=== PATIENT | female | born 2000 | race Caucasian/White ===

== ENCOUNTER 2023-10-11 10:25 | Outpatient (AMB) | payer OTHER, SELFPAY ==
--- NOTE | 2023-10-11 10:27 | MHC.PC.OV ---
Vital Signs 10/11/23 10:31 Height 5 ft 3 in Weight 102 lb BMI 18.1 BP 118/70 Blood Pressure Location Lt brachial Position Sitting Pulse 78 Pulse Source Pulse Oximeter Pulse Oximetry (%) 97 Oxygen Delivery Method Room Air Intake Visit Reasons: New patient-Type 1 diabetes Intake Note: Patient is a new patient here to establish care for T1DM, Anxiety, Insomia, ADHD, Seizures, Aspergers syndrome. Transferring care from Dr Ayala. Medical records have been requested and have not received. Asphalt Blender Required: No Communication Electronic Technician: Present Accompanied by: Father Allergies Influenza Virus Vaccines Allergy (Intermediate, Verified 10/11/23 16:32) Chills Medication List - Last Reconciled 10/11/23 by Cory Das MD blood sugar diagnostic (FreeStyle Lite Strips) As directed clonidine HCl 0.3 mg PO DAILY dextroamphetamine-amphetamine 25 mg ER 1 cap PO QAM dextroamphetamine-amphetamine 25 mg ER (Adderall XR) 25 mg PO DAILY fluoxetine 30 mg PO glucagon 3 mg/actuation (Baqsimi) mg intranasal insulin glargine (Lantus U-100 Insulin) 10 units subcut QPM insulin lispro (Humalog U-100 Insulin) subcut ketone blood test test blood sugar 4 times a day levetiracetam 750 mg PO BID Tobacco use date assessed: 10/11/23 Dental Screening Dental Screen Date: 10/11/23 Did you have a dental visit in the last 12 months?: Yes Did you have a dental problem in the last 6 months where you did not have access to dental care?: No Was dental information given to patient?: Patient has dentist HPI New patient-Type 1 diabetes HPI Details 23-year-old female presents to the office to establish her care here. She is transferring out of pediatrics and is requesting to see an adult provider. Patient gives history of Asperger's, type 1 diabetes mellitus, seizure disorder and depression. She also has ADHD. Patient takes fluoxetine, clonidine, Adderall ER and Lamictal for these conditions. She needs a refill on the Adderall. Patient was diagnosed with autism at age 10. She has been taking medications for depression since age 8. She was diagnosed with type 1 diabetes at age 14. Currently she is transitioning to see an adult tin plater. Patient finished [facility] [employer] [facility] [facility] and did not pursue a college career. According to the patient she has no learning or reading disabilities. 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 She lives at home. She has a younger sibling who is pursuing a career in criminal Psychology. Patient gives history of seizure disorder and the last seizure was in January of 2021. She takes Lamictal twice a day. Occasional alcohol use. [facility] Medical History (Updated 10/11/23 @ 16:41 by Cory Das MD) Attention deficit hyperactivity disorder Endogenous depression Type 1 diabetes mellitus Seizure disorder Asperger's syndrome Surgical History No pertinent past surgical history Family History Other Mental health disorder Social History Housing: House (with parent) Alcohol intake: never Patient Tobacco Use Status: Never used Tobacco e-Cigarette/Vaping Use: Never Used Second Hand Smoke Exposure: No service: No Current occupational status: unemployed and disabled Cognitive needs: No Hearing needs: No Vision needs: Yes (glasses) Questionnaire PHQ-9 Over the last 2 weeks, how often have you been bothered by any of the following problems? 1. Little interest or pleasure in doing things: not at all 2. Feeling down, depressed, or hopeless: not at all 3. Trouble falling or staying asleep, or sleeping too much: not at all 4. Feeling tired or having little energy: not at all 5. Poor appetite or overeating: not at all 6. Feeling bad about yourself - or that you are a failure or have let yourself or your family down: not at all 7. Trouble concentrating on things, such as reading the newspaper or watching television: not at all 8. Moving or speaking so slowly that other people could have noticed. Or the opposite - being so fidgety or restless that you have been moving around a lot more than usual: not at all 9. Thoughts that you would be better off or of hurting yourself in some way: not at all Total score: 0 Depression Screening Interpretation: Negative Depression Screening Done: Yes Source: Developed by Dianne Peralta.W. Nba, Gordy Roach and colleagues, with an educational rolando from [employer] Thrive Questionnaire Date Thrive assessed: 10/11/23 I am a: Patient What is your living situation today?: I have a steady place to live Within the past 12 months, did the food you bought not last and you didn't have the money to get more?: Never true Within the past 12 months, did you worry whether your food would run out before you got money to buy more?: Never true Do you have trouble paying for medicines?: No Do you have trouble getting transportation to medical appointments?: No Do you have trouble paying your heating and electricity bill?: No Do you have trouble taking care of your child, family member or friend?: No Do you have trouble with day-to-day activities such as bathing, preparing meals, shopping, managing finances, etc.?: No Are you currently unemployed and looking for a job?: No Are you interested in more education?: No Currently or been in a relationship where the following occur: no concerns reported AUDIT C Alcohol Use Questionnaire (AUDIT-C) 1. How often do you have a drink containing alcohol?: Never Total Score: 0 LUANA-7 AMB Questionnaire LUANA-7 Date LUANA - 7 assessed: 10/11/23 Feeling nervous, anxious, or on edge: 1 = Several days (currently on medication) Not being able to stop or control worryin = Not at all Worrying too much about different things: 0 = Not at all Trouble relaxin = Not at all Being so restless that it is hard to sit still: 0 = Not at all Becoming easily annoyed or irritable: 0 = Not at all Feeling afraid as if something awful might happen: 0 = Not at all Total LUANA-7 score (0-4 normal; 5-9 mild; 10-14 moderate; 15-21 severe): 1 Source: Developed by Drs. Riley Friedman, Dianne Arango, Gordy Roach and colleagues, with an educational rolando from [employer] Physical exam (Primary Care) Vital Signs: Last Vital Signs Pulse 78 10/11/23 10:31 BP 118/70 10/11/23 10:31 Pulse Ox 97 10/11/23 10:31 Oxygen Delivery Method Room Air 10/11/23 10:31 BMI result Body Mass Index 18.1 Tobacco/Smoking Status: Tobacco use Status Tobacco use date assessed 10/11/23 10/11/23 10:48 Patient Tobacco Use Status Never used Tobacco 10/11/23 10:48 e-Cigarette/Vaping Use Never Used 10/11/23 10:48 PHQ-9: PHQ-9 Score PHQ-9: Total score 0 10/11/23 10:48 Depression Screening Interpretation: Negative Thrive Assessment: Date of Thrive Assessment Date Thrive assessed 10/11/23 10/11/23 10:48 Currently or been in a relationship where the following occur: no concerns reported Const General: cooperative and healthy appearing Nutritional Appearance: well nourished Orientation/consciousness: patient oriented x3 Limitations: no limitations HENMT Head: Yes normal to inspection Eyes General: appearance normal, both eyes and all related structures Neck Neck: Yes normal visual inspection Chest Chest palpation & inspection: normal palpation of entire chest wall Resp Effort & Inspection: normal respiratory effort Neuro General: patient oriented x3 Assessment and Plan Assessment & Plan (1) Endogenous depression: Code(s): F33.2 - Major depressive disorder, recurrent severe without psychotic features (2) Type 1 diabetes mellitus: Code(s): E10.9 - Type 1 diabetes mellitus without complications Plan: Patient was informed that I would not be able to take care of this condition. She reported that she already is looking for an tin plater. She has the prescriptions and would not be requiring me to refill them. (3) Seizure disorder: Code(s): G40.909 - Epilepsy, unspecified, not intractable, without status epilepticus Plan: Patient reports that she has had no seizures on Lamictal. (4) Asperger's syndrome: Code(s): F84.5 - Asperger's syndrome Plan: Condition is stable. (5) Attention deficit hyperactivity disorder: Code(s): F90.9 - Attention-deficit hyperactivity disorder, unspecified type Plan: Adderall XR was reordered. Records from the garment form assembler is awaited. Medications: New dextroamphetamine-amphetamine 25 mg ER (Adderall XR) Partial Fill upon patient request. 25 mg PO DAILY 30 caps 0RF Coding Level of Care Code New Pt Level 5 (62409) Diagnoses 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 Type 1 diabetes mellitus E10.9 Seizure disorder G40.909 Asperger's syndrome F84.5 Attention deficit hyperactivity disorder F90.9
[2023-10-11 10:31] VITALS: BP 118/70; PULSE 78; O2SAT 97; BMI 18.1
== END 2023-10-11 11:58 | disposition home or self-care (01) ==
PROVIDERS: PCP Internal Medicine; Visit Provider Internal Medicine
DX: E10.9 Type 1 diabetes mellitus without complications (principal); G40.909 Epilepsy, unspecified, not intractable, without status epilepticus; F33.2 Major depressive disorder, recurrent severe without psychotic features; F84.5 Asperger's syndrome; F90.9 Attention-deficit hyperactivity disorder, unspecified type
CPT/HCPCS: 99204

== ENCOUNTER 2023-12-13 15:13 | Outpatient (AMB) | payer OTHER, SELFPAY ==
[2023-12-13 15:18] VITALS: BP 108/76; PULSE 105; RESP 13; O2SAT 100; BMI 18.2
--- NOTE | 2023-12-13 15:18 | MHC.PC.OV ---
Vital Signs 12/13/23 15:18 Height 5 ft 3 in Weight 102 lb 8 oz BMI 18.2 BP 108/76 Blood Pressure Location Rt brachial Position Sitting Respiration 13 Pulse 105 H Pulse Source Pulse Oximeter Pulse Oximetry (%) 100 Oxygen Delivery Method Room Air Intake Visit Reasons: RIGOBERTO Intake Note: Patient would like refill on Fluoxetine. Manager Aviation Required: No Accompanied by: Father Allergies Influenza Virus Vaccines Allergy (Intermediate, Verified 12/13/23 15:37) Chills Medication List - Last Reconciled 12/13/23 by LANG OsegueraP- blood sugar diagnostic (FreeStyle Lite Strips) As directed clonidine HCl 0.3 mg PO DAILY dextroamphetamine-amphetamine 25 mg ER (Adderall XR) 25 mg PO DAILY fluoxetine 30 mg (3 x 10 mg) PO DAILY glucagon 3 mg/actuation (Baqsimi) mg intranasal insulin glargine (Lantus U-100 Insulin) 10 units subcut QPM insulin lispro (Humalog U-100 Insulin) subcut ketone blood test test blood sugar 4 times a day levetiracetam 750 mg PO BID Tobacco use date assessed: 10/11/23 Dental Screening Dental Screen Date: 12/13/23 Did you have a dental visit in the last 12 months?: No Did you have a dental problem in the last 6 months where you did not have access to dental care?: No Was dental information given to patient?: Patient has dentist HPI HPI Comments History of Present Illness Details 23-year-old female with ADHD, MDD, type 1 diabetes, Asperger syndrome, seizure disorder , generalized anxiety disorder, insomnia, seasonal allergies, mild intermittent asthma [facility] [address] [place] Op[facility] DME unsure who at this time Neuro unsure of who at this time Counselor - active in the past Health Maintenance: Hga1c done today 7.7% DME eye - reports UTD, need records. Here today with Dad, Jonnie, to [facility] care Mood - stable on current meds. Does not feel needs counselor at this time. Sz - managed by Neuro. 2 sz in her life time. Last time Wednesday 2 years ago. Maintained on Keppra. DM - managed by endo. Insulin pump dependent (Omnipod). Hga1c done today 7.7% Not using CGM as felt there was a lot of false readings in the past. Surgery: None Hospital: None Family hx: Dad alive and well PGM alive, CHF PGF small cell lung ca age 77 Mom: alive and well MGM: Iron def, MDD, LUANA, DM 2 MGF: estranged Sibling: sister age 19, + estranged step sister age 28 (Bharat) Healthy [facility] Medical History Attention deficit hyperactivity disorder Endogenous depression Type 1 diabetes mellitus Seizure disorder Asperger's syndrome Surgical History No pertinent past surgical history Family History Other Mental health disorder Social History Housing: House (with parent) Alcohol intake: never Patient Tobacco Use Status: Never used Tobacco e-Cigarette/Vaping Use: Never Used Second Hand Smoke Exposure: No service: No Current occupational status: unemployed and disabled Cognitive needs: No Hearing needs: No Vision needs: Yes (glasses) Questionnaire PHQ-9 Over the last 2 weeks, how often have you been bothered by any of the following problems? 1. Little interest or pleasure in doing things: not at all 2. Feeling down, depressed, or hopeless: not at all 3. Trouble falling or staying asleep, or sleeping too much: not at all 4. Feeling tired or having little energy: not at all 5. Poor appetite or overeating: not at all 6. Feeling bad about yourself - or that you are a failure or have let yourself or your family down: not at all 7. Trouble concentrating on things, such as reading the newspaper or watching television: not at all 8. Moving or speaking so slowly that other people could have noticed. Or the opposite - being so fidgety or restless that you have been moving around a lot more than usual: several days 9. Thoughts that you would be better off or of hurting yourself in some way: not at all Total score: 1 Depression Screening Interpretation: Negative Depression Screening Done: Yes 79169 - PHQ-9 Billing: Yes Source: Developed by Drs. Riley L. Dianne Friedman Kurt Kroenke and colleagues, with an educational rolando from [employer]. Thrive Questionnaire Date Thrive assessed: 10/11/23 AUDIT C Alcohol Use Questionnaire (AUDIT-C) 1. How often do you have a drink containing alcohol?: Never 3. How often do you have six or more drinks on one occasion?: Never Total Score: 0 LUANA-7 AMB Questionnaire LUANA-7 Date LUANA - 7 assessed: 12/13/23 Feeling nervous, anxious, or on edge: 1 = Several days Not being able to stop or control worryin = Several days Worrying too much about different things: 1 = Several days Trouble relaxin = Several days Being so restless that it is hard to sit still: 1 = Several days Becoming easily annoyed or irritable: 0 = Not at all Feeling afraid as if something awful might happen: 0 = Not at all Total LUANA-7 score (0-4 normal; 5-9 mild; 10-14 moderate; 15-21 severe): 5 Source: Developed by Drs. Riley Friedman, Gordy Araya and colleagues, with an educational rolando from [employer]. LUANA-7 Assessment Billing LUANA-7 Assessment Tool: LUANA-7 Assessment 26793 Review of Systems Const All systems reviewed & are unremarkable except as noted in HPI and below Physical exam (Primary Care) Vital Signs: Last Vital Signs Pulse 105 H 12/13/23 15:18 Resp 13 12/13/23 15:18 BP 108/76 12/13/23 15:18 Pulse Ox 101 H 12/13/23 15:18 Oxygen Delivery Method Room Air 12/13/23 15:18 BMI result Body Mass Index 18.2 Tobacco/Smoking Status: Tobacco use Status Tobacco use date assessed 10/11/23 12/13/23 15:21 Patient Tobacco Use Status Never used Tobacco 12/13/23 15:21 e-Cigarette/Vaping Use Never Used 12/13/23 15:21 PHQ-9: PHQ-9 Score PHQ-9: Total score 1 12/13/23 15:27 Depression Screening Interpretation: Negative Thrive Assessment: Date of Thrive Assessment Date Thrive assessed 10/11/23 12/13/23 15:21 Const Other: awake alert NAD accompanied by Dad. Interview performed w and w/o Dad PERRLA Tachycardic, regular rythym LS CTAB Mood and affect appropriate, as expected. Results AMB Hemoglobin A1c AMB Hemoglobin A1c 7.7 % Last Edit by Millie Yip MA on 12/13/23 15:40 Assessment and Plan Assessment & Plan (1) Attention deficit hyperactivity disorder: Comment: on Adderall XR 25 mg daily and clonidine 0.3 mg daily. Continue Code(s): F90.9 - Attention-deficit hyperactivity disorder, unspecified type Qualifiers: Attention deficit-hyperactivity disorder type: combined inattentive-hyperactive Qualified Code(s): F90.2 - Attention-deficit hyperactivity disorder, combined type (2) Endogenous depression: Comment: On fluoxetine 30 mg daily. Refill sent today. Code(s): F33.2 - Major depressive disorder, recurrent severe without psychotic features (3) Type 1 diabetes mellitus: Comment: Managed by endocrinology. On Omnipod insulin pump A1c 7.7% today Reports up-to-date on diabetic eye exam. We will need these records. Code(s): E10.9 - Type 1 diabetes mellitus without complications (4) Seizure disorder: Comment: Managed by Neurology. On Keppra. Two seizures in her lifetime. Last seizure January 2022 Code(s): G40.909 - Epilepsy, unspecified, not intractable, without status epilepticus (5) Asperger's syndrome: Code(s): F84.5 - Asperger's syndrome Plan This note is constructed using voice recognition software. While every effort has been made to ensure accuracy in whirley operator, still errors may have been included Sometimes, these errors may affect the content or meaning of the given sentence . Total time spent caring for the patient today was 45 minutes. This includes time spent before the visit reviewing the chart, time spent during the visit, and time spent after the visit on documentation Orders: Orders AMB Hemoglobin A1c Today E10.9 - Type 1 diabetes mellitus without complications Medications: Refilled fluoxetine 30 mg (3 x 10 mg) PO DAILY 90 tabs 6RF Patient Instructions: Talk with Mom about a Gynecology referral. Current guidelines recommend cervical screening starting at age 21, regardless of sexual activity. Please provide names for specialists: Eye doctor, endocrinology and neurology so that i can get records and send my records to them as needed Return to office in May for a complete physical exam. Coding Level of Care Code Est Pt Level 5 (97547) Diagnoses Attention deficit hyperactivity disorder (ADHD), combined type F90.2 Attention deficit-hyperactivity disorder type: combined inattentive-hyperactive 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 Type 1 diabetes mellitus E10.9 Seizure disorder G40.909 Asperger's syndrome F84.5 Additional Codes LUANA-7 Assessment Billing - LUANA-7 Assessment Tool: LUANA-7 Assessment 25738 ([id number])
== END 2023-12-13 16:16 | disposition home or self-care (01) ==
PROVIDERS: PCP Internal Medicine; Visit Provider Nurse Practitioner Family
DX: E10.9 Type 1 diabetes mellitus without complications (principal); F33.2 Major depressive disorder, recurrent severe without psychotic features; G40.909 Epilepsy, unspecified, not intractable, without status epilepticus; F90.2 Attention-deficit hyperactivity disorder, combined type; F84.5 Asperger's syndrome
CPT/HCPCS: 83036; 99215

== ENCOUNTER 2024-02-04 15:28 | Outpatient (AMB) | payer OTHER, SELFPAY ==
--- NOTE | 2024-02-04 15:42 | A.OFFPC_ITS ---
Vital Signs 02/04/24 15:43 Height 5 ft 3 in Weight 103 lb 4 oz BMI 18.3 BP 108/62 Blood Pressure Location Lt brachial Position Sitting Pulse 110 H Pulse Source Pulse Oximeter Pulse Oximetry (%) 98 Oxygen Delivery Method Room Air Intake Visit Reasons: med visit Allergies Influenza Virus Vaccines Allergy (Intermediate, Verified 02/04/24 15:45) Chills Medication List - Last Reconciled 02/04/24 by Catherine Reese, UPHOLSTERY ESTIMATOR- blood sugar diagnostic (FreeStyle Lite Strips) As directed clonidine HCl 0.3 mg PO DAILY dextroamphetamine-amphetamine 25 mg ER (Adderall XR) 25 mg PO DAILY fluoxetine 30 mg (3 x 10 mg) PO DAILY glucagon 3 mg/actuation (Baqsimi) mg intranasal insulin glargine (Lantus U-100 Insulin) 10 units subcut QPM insulin lispro (Humalog U-100 Insulin) subcut ketone blood test test blood sugar 4 times a day levetiracetam 750 mg PO BID Tobacco use date assessed: 10/11/23 Dental Screening Dental Screen Date: 12/13/23 HPI HPI Comments History of Present Illness Details 23-year-old female with ADHD, MDD, type 1 diabetes, Asperger syndrome, seizure disorder , generalized anxiety disorder, insomnia, seasonal allergies, mild intermittent asthma [facility] [address] Op[facility] DME unsure who at this time Neuro unsure of who at this time Counselor - active in the past Here today for ADHD f/u Tolerant and compliant w/ Adderral. Wt is stable. Eating more to try to gain weight Helping neighbors spring clean looking forward to sister coming home for the summer Sleeping well. Mood is stable. Was not able to get my the info on names of her other providers Did talk to Mom about SORTER/ASSAY TECH for PAP. Mom is unsure. Pt wants to but is kind of unsure too. Will cont to think about this. [facility] Medical History Attention deficit hyperactivity disorder Endogenous depression Type 1 diabetes mellitus Seizure disorder Asperger's syndrome Surgical History No pertinent past surgical history Family History Other Mental health disorder Social History (Reviewed 12/13/23 @ 15:25 by Millie Yip [facility] Housing: House (with parent) Alcohol intake: never Patient Tobacco Use Status: Never used Tobacco e-Cigarette/Vaping Use: Never Used Second Hand Smoke Exposure: No service: No Current occupational status: unemployed and disabled Cognitive needs: No Hearing needs: No Vision needs: Yes (glasses) Questionnaire Thrive Questionnaire Date Thrive assessed: 10/11/23 LUANA-7 AMB Questionnaire LUANA-7 Date LUANA - 7 assessed: 12/13/23 Source: Developed by Drs. Riley Friedman, Dianne Arango, Gordy Roach and colleagues, with an educational rolando from [employer]. Review of Systems Const All systems reviewed & are unremarkable except as noted in HPI and below Physical exam (Primary Care) Tobacco/Smoking Status: Tobacco use Status Tobacco use date assessed 10/11/23 12/13/23 15:21 Patient Tobacco Use Status Never used Tobacco 12/13/23 15:21 e-Cigarette/Vaping Use Never Used 12/13/23 15:21 Thrive Assessment: Date of Thrive Assessment Date Thrive assessed 10/11/23 12/13/23 15:21 Const Other: awake alert NAD Tachycardic, regular rythym, 2/6 holosystolic murmur LS CTAB Mood and affect appropriate, as expected. Assessment and Plan Assessment & Plan (1) Attention deficit hyperactivity disorder: Comment: on Adderall XR 25 mg daily and clonidine 0.3 mg daily. Continue Wt stable. HR elevated but within her normal range Refill sent Monthly visits set up for refills and checks. Code(s): F90.9 - Attention-deficit hyperactivity disorder, unspecified type Qualifiers: Attention deficit-hyperactivity disorder type: combined inattentive- hyperactive Qualified Code(s): F90.2 - Attention-deficit hyperactivity disorder, combined type Medications: Refilled dextroamphetamine-amphetamine 25 mg ER (Adderall XR) Partial Fill upon patient request. 25 mg PO DAILY 30 caps 0RF Patient Instructions: No changes today Refill sent on Adderall Continue to discuss Pap with Mom & let me know when you're ready for referral RTO in 1 month for med refill and check in, sooner if something changes. Coding Level of Care Code Est Pt Level 3 (41629) Diagnoses Attention deficit hyperactivity disorder (ADHD), combined type F90.2 Attention deficit-hyperactivity disorder type: combined inattentive- hyperactive
[2024-02-04 15:43] VITALS: BP 108/62; PULSE 110; O2SAT 98; BMI 18.3
== END 2024-02-04 15:56 | disposition home or self-care (01) ==
PROVIDERS: PCP Nurse Practitioner Family; Visit Provider Nurse Practitioner Family
DX: F90.2 Attention-deficit hyperactivity disorder, combined type (principal)
CPT/HCPCS: 99213

== ENCOUNTER 2024-03-17 15:41 | Outpatient (AMB) | payer OTHER, SELFPAY ==
--- NOTE | 2024-03-17 15:48 | A.OFFPC_ITS ---
Vital Signs 03/17/24 15:52 Height 5 ft 3 in Weight 107 lb 4 oz BMI 19.0 BP 100/66 Blood Pressure Location Lt brachial Position Sitting Respiration 12 Pulse 71 Pulse Source Pulse Oximeter Pulse Oximetry (%) 97 Oxygen Delivery Method Room Air Intake Visit Reasons: med visit Intake Note: medication F/U Is last menstrual period known: No Allergies Influenza Virus Vaccines Allergy (Intermediate, Verified 03/17/24 16:11) Chills Medication List - Last [facility]17[facility] blood sugar diagnostic (FreeStyle Lite Strips) As directed clonidine HCl 0.3 mg PO DAILY dextroamphetamine-amphetamine 25 mg ER (Adderall XR) 25 mg PO DAILY fluoxetine 30 mg (3 x 10 mg) PO DAILY glucagon 3 mg/actuation (Baqsimi) mg intranasal insulin glargine (Lantus U-100 Insulin) 10 units subcut QPM insulin lispro (Humalog U-100 Insulin) subcut ketone blood test test blood sugar 4 times a day levetiracetam 750 mg PO BID Tobacco use date assessed: 03/17/24 Dental Screening Dental Screen Date: 03/17/24 Did you have a dental visit in the last 12 months?: No Did you have a dental problem in the last 6 months where you did not have access to dental care?: No Was dental information given to patient?: Patient has dentist HPI HPI Comments History of Present Illness Details 23-year-old female with ADHD, MDD, type 1 diabetes, Asperger syndrome, seizure disorder , generalized anxiety disorder, insomnia, seasonal allergies, mild intermittent asthma [facility] [place] [facility] unsure who at this time Neuro unsure of who at this time Counselor - 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 Pap - never had one. Here today for ADHD f/u Tolerant and compliant w/ Adderral. 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 Sleeping well. Mood is stable. Plan: Cont Adderral at same dose. Refill sent on clonidine and prozac RTO in 1 month for med check, sooner as needed [facility] Medical History Attention deficit hyperactivity disorder Endogenous depression Type 1 diabetes mellitus Seizure disorder Asperger's syndrome Surgical History No pertinent past surgical history Family History Other Mental health disorder Social History Housing: House (with parent) Alcohol intake: never Patient Tobacco Use Status: Never used Tobacco e-Cigarette/Vaping Use: Never Used Second Hand Smoke Exposure: No service: No Current occupational status: unemployed and disabled Cognitive needs: No Hearing needs: No Vision needs: Yes (glasses) Questionnaire Thrive Questionnaire Date Thrive assessed: 10/11/23 AUDIT C Alcohol Use Questionnaire (AUDIT-C) 1. How often do you have a drink containing alcohol?: Never 3. How often do you have six or more drinks on one occasion?: Never Total Score: 0 LUANA-7 AMB Questionnaire LUANA-7 Date LUANA - 7 assessed: 12/13/23 Source: Developed by Drs. Riley Friedman, Dianne Arango, Gordy Roach and colleagues, with an educational rolando from [employer]. Review of Systems Const All systems reviewed & are unremarkable except as noted in HPI and below Physical exam (Primary Care) Vital Signs: Last Vital Signs Pulse 71 03/17/24 15:52 Resp 12 03/17/24 15:52 BP 100/66 03/17/24 15:52 Pulse Ox 97 03/17/24 15:52 Oxygen Delivery Method Room Air 03/17/24 15:52 BMI result Body Mass Index 19.0 Tobacco/Smoking Status: Tobacco use Status Tobacco use date assessed 03/17/24 03/17/24 15:56 Patient Tobacco Use Status Never used Tobacco 03/17/24 15:56 e-Cigarette/Vaping Use Never Used 03/17/24 15:56 Thrive Assessment: Date of Thrive Assessment Date Thrive assessed 10/11/23 03/17/24 15:56 Const Other: awake alert NAD Tachycardic, regular rythym, 2/6 holosystolic murmur LS CTAB Mood and affect appropriate, as expected. Assessment and Plan Assessment & Plan (1) Attention deficit hyperactivity disorder: Comment: on Adderall XR 25 mg daily and clonidine 0.3 mg daily. Continue Wt increased Monthly visits set up for refills and checks. Code(s): F90.9 - Attention-deficit hyperactivity disorder, unspecified type Qualifiers: Attention deficit-hyperactivity disorder type: combined inattentive- hyperactive Qualified Code(s): F90.2 - Attention-deficit hyperactivity disorder, combined type (2) Endogenous depression: Comment: On fluoxetine 30 mg daily. Refill sent today. Code(s): F33.2 - Major depressive disorder, recurrent severe without psychotic features Medications: Refilled clonidine HCl 0.3 mg PO DAILY 90 tabs 0RF fluoxetine 30 mg (3 x 10 mg) PO DAILY 90 tabs 3RF Patient Instructions: Plan: Cont Adderral at same dose. Refill sent on clonidine and prozac RTO in 1 month for med check, sooner as needed Coding Level of Care Code Est Pt Level 3 (70276) Diagnoses Attention deficit hyperactivity disorder (ADHD), combined type F90.2 Attention deficit-hyperactivity disorder type: combined inattentive- hyperactive 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
[2024-03-17 15:52] VITALS: BP 100/66; PULSE 71; RESP 12; O2SAT 97; BMI 19.0
== END 2024-03-17 16:39 | disposition home or self-care (01) ==
PROVIDERS: PCP Nurse Practitioner Family; Visit Provider Nurse Practitioner Family
DX: F90.2 Attention-deficit hyperactivity disorder, combined type (principal); F33.2 Major depressive disorder, recurrent severe without psychotic features
CPT/HCPCS: 99213

== ENCOUNTER 2024-04-14 15:26 | Outpatient (AMB) | payer OTHER, SELFPAY ==
--- NOTE | 2024-04-14 15:34 | A.OFFPC_ITS ---
Vital Signs 04/14/24 15:35 Height 5 ft 3 in Weight 103 lb 4 oz BMI 18.3 BP 102/74 Blood Pressure Location Rt brachial Position Sitting Pulse 93 Pulse Source Pulse Oximeter Pulse Oximetry (%) 98 Oxygen Delivery Method Room Air Intake Visit Reasons: med visit Intake Note: Follow up Is last menstrual period known: Yes Last menstrual period: 03/10/24 Allergies Influenza Virus Vaccines Allergy (Intermediate, Verified 04/14/24 15:34) Chills Medication List - Last Reconciled 04/14/24 by LANG OsegueraP- blood sugar diagnostic (FreeStyle Lite Strips) As directed clonidine HCl 0.3 mg PO DAILY dextroamphetamine-amphetamine 25 mg ER (Adderall XR) 25 mg PO DAILY fluoxetine 30 mg (3 x 10 mg) PO DAILY glucagon 3 mg/actuation (Baqsimi) mg intranasal insulin glargine (Lantus U-100 Insulin) 10 units subcut QPM insulin lispro (Humalog U-100 Insulin) subcut ketone blood test test blood sugar 4 times a day levetiracetam 750 mg PO BID Tobacco use date assessed: 03/17/24 Dental Screening Dental Screen Date: 03/17/24 HPI HPI Comments History of Present Illness Details 23-year-old female with ADHD, MDD, type 1 diabetes, Asperger syndrome, seizure disorder , generalized anxiety disorder, insomnia, seasonal allergies, mild intermittent asthma [facility] [address] [place] [facility] D[facility] unsure who at this time Neuro unsure of who at this time Counselor - 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 Pap - never had one. Here today for ADHD f/u Tolerant and compliant w/ Adderral. Wt is decreased however within normal limits for her. Today she has requesting an increase in her Adderall reporting difficult time focusing. She continues to interview for jobs however she has not started a new job yet. Sleeping well. Mood is stable. Today discussed potentially adding a p.r.n. IR dose to be used as needed. Patient wishes to discuss this with her mom. She presents today with her dad. I have written a note home for her mom and asked her to contact me or come to the next appointment with her so that we may address this. Plan: Cont Adderral at same dose. RTO in 1 month for med check, sooner as needed PFSH Medical History Attention deficit hyperactivity disorder Endogenous depression Type 1 diabetes mellitus Seizure disorder Asperger's syndrome Surgical History No pertinent past surgical history Family History Other Mental health disorder Social History Housing: House (with parent) Alcohol intake: never Patient Tobacco Use Status: Never used Tobacco e-Cigarette/Vaping Use: Never Used Second Hand Smoke Exposure: No service: No Current occupational status: unemployed and disabled Cognitive needs: No Hearing needs: No Vision needs: Yes (glasses) Female Reproductive History Menstrual Date of last menstrual period: 03/10/24 Questionnaire Thrive Questionnaire Date Thrive assessed: 10/11/23 LUANA-7 AMB Questionnaire LUANA-7 Date LUANA - 7 assessed: 12/13/23 Source: Developed by Drs. Riley Friedman, Dianne Arango, Gordy Roach and colleagues, with an educational rolando from [employer]. Physical exam (Primary Care) Vital Signs: Last Vital Signs Pulse 93 04/14/24 15:35 BP 102/74 04/14/24 15:35 Pulse Ox 98 04/14/24 15:35 Oxygen Delivery Method Room Air 04/14/24 15:35 BMI result Body Mass Index 18.3 Tobacco/Smoking Status: Tobacco use Status Tobacco use date assessed 03/17/24 04/14/24 15:36 Patient Tobacco Use Status Never used Tobacco 04/14/24 15:36 e-Cigarette/Vaping Use Never Used 04/14/24 15:36 Thrive Assessment: Date of Thrive Assessment Date Thrive assessed 10/11/23 04/14/24 15:36 Const Other: awake alert NAD Tachycardic, regular rythym, 2/6 holosystolic murmur LS CTAB Mood and affect appropriate, as expected. Assessment and Plan Assessment & Plan (1) Attention deficit hyperactivity disorder: Comment: on Adderall XR 25 mg daily and clonidine 0.3 mg daily. Continue Wt increased Monthly visits set up for refills and checks. Code(s): F90.9 - Attention-deficit hyperactivity disorder, unspecified type Qualifiers: Attention deficit-hyperactivity disorder type: combined inattentive- hyperactive Qualified Code(s): F90.2 - Attention-deficit hyperactivity disorder, combined type Medications: Refilled dextroamphetamine-amphetamine 25 mg ER (Adderall XR) Partial Fill upon patient request. 25 mg PO DAILY 30 caps 0RF Patient Instructions: She mentions decreased focus daily. Asked about increasing Adderral dose. I discussed potentially adding a small immediate release dose to be used as needed on days that she is having a hard time focusing or needs increased focus, rather than putting her on a higher daily dose of the extended release. Please let me know your thoughts on this; you can send in a note next visit or stop by office or call in and let me know your thoughts. For now, continue same dose. Refill sent. Coding Level of Care Code Est Pt Level 3 (57953) Diagnoses Attention deficit hyperactivity disorder (ADHD), combined type F90.2 Attention deficit-hyperactivity disorder type: combined inattentive- hyperactive
[2024-04-14 15:35] VITALS: BP 102/74; PULSE 93; O2SAT 98; BMI 18.3
== END 2024-04-14 16:03 | disposition home or self-care (01) ==
PROVIDERS: PCP Nurse Practitioner Family; Visit Provider Nurse Practitioner Family
DX: F90.2 Attention-deficit hyperactivity disorder, combined type (principal)
CPT/HCPCS: 99213

== ENCOUNTER 2024-06-19 15:21 | Outpatient (AMB) | payer OTHER, SELFPAY ==
--- NOTE | 2024-06-19 15:24 | MHC.PC.OV ---
Vital Signs 06/19/24 15:27 Height 5 ft 3 in Weight 104 lb 4 oz BMI 18.5 BP 98/64 Blood Pressure Location Lt brachial Position Sitting Respiration 14 Pulse 92 Pulse Source Pulse Oximeter Pulse Oximetry (%) 99 Oxygen Delivery Method Room Air Intake Visit Reasons: cpe Intake Note: physical and med check Allergies Influenza Virus Vaccines Allergy (Intermediate, Verified 06/19/24 15:42) Chills Medication List - Last Reconciled 06/19/24 by Catherine Reese [facility]- blood sugar diagnostic (FreeStyle Lite Strips) As directed clonidine HCl 0.3 mg PO DAILY dextroamphetamine-amphetamine 25 mg ER (Adderall XR) 25 mg PO DAILY fluoxetine 30 mg (3 x 10 mg) PO DAILY glucagon 3 mg/actuation (Baqsimi) mg intranasal insulin glargine (Lantus U-100 Insulin) 10 units subcut QPM insulin lispro (Humalog U-100 Insulin) subcut ketone blood test test blood sugar 4 times a day levetiracetam 750 mg PO BID Tobacco use date assessed: 03/17/24 Dental Screening Dental Screen Date: 03/17/24 HPI HPI Comments History of Present Illness Details 24-year-old female with ADHD, MDD, type 1 diabetes, Asperger syndrome, seizure disorder , generalized anxiety disorder, insomnia, seasonal allergies, mild intermittent asthma, acne [facility] [address] [place] [address], [place] Will be transitioning from peds to adult endo Optho DME unsure who at this time Neuro Dr Oliver Voss, last visit 10/2023 Counselor - active in the past Health Maintenance: diabetic eye exam 02/22/2024 at [facility], negative for retinopathy bilat. Pap - never had one. Declined at this time. Surgery: None Hospital: None Family hx: Dad alive and well PGM alive, CHF PGF small cell lung ca age 77 Mom: alive and well MGM: Iron def, MDD, LUANA, DM 2 MGF: estranged Sibling: sister age 19 [place], + estranged step sister age 28 (Bharat) Healthy Here today for complete physical exam. She is active with her care team. Sees endocrinology regularly. Sees Neurology at least annually. No seizures. Maintained on Keppra. Up-to-date on her diabetic eye exam. She was active with a counselor in the past for her depression and anxiety. However she stopped going. Over the last couple of months she reports an uptake in depressive symptoms long some anxiety. Reports that she feels down depressed and hopeless at times. Feels anxious and overwhelmed about trying to find a job and all the things require to do so. Upon further questioning she does admit to some passive suicidal thoughts. She has no plan. Has no plan to follow through. Reports that the thought of her parents as what keeps her from moving forward with these passive thoughts. States that yesterday things came to a head during a meeting. She also reports mood changes around the time of her period. She is currently on her menses. She currently is on clonidine along with fluoxetine. She reports tolerance and compliance with this. At this time she would like to find a counselor. Not interested in changing any medications. Her ADHD is well controlled on the current dose of Adderall. Her weight is stable. Appetite is good, trying to eat more. Sleep is good. Reports normal elimination patterns. Wears a seatbelt in the car. Has no concern for any skin changes. Has routine follow up with a dentist. Breathing is good. Reviewed Pap smear screening. At this time she is not sexually active. Reports that she is a virgin. Denies any complaints. She does not feel comfortable with the speculum exam or referral at this time. Plan: Debrox for right ear. Start a few days before July appointment. We will flush at the next office visit. Referral to nurse navigator to help establish care with a counselor At this time continue all medications without change Crisis hotline information provided Defer Pap at this time, she is not sexually active, has no risk factors. Encouraged self-breast examination. Cont care with care team. RTO 1 month for ADHD med check and R ear lavage, sooner PRN This note is constructed using voice recognition software. While every effort has been made to ensure accuracy in accounting clerk, still errors may have been included Sometimes, these errors may affect the content or meaning of the given sentence . An additional 10 was spent addressing the problem(s) noted at todays visit. This includes time spent before the visit reviewing the chart, time spent during the visit, and time spent after the visit on documentation [facility] Medical History Attention deficit hyperactivity disorder Endogenous depression Type 1 diabetes mellitus Seizure disorder Asperger's syndrome Surgical History No pertinent past surgical history Family History Other Mental health disorder Social History Housing: House (with parent) Alcohol intake: never Patient Tobacco Use Status: Never used Tobacco e-Cigarette/Vaping Use: Never Used Second Hand Smoke Exposure: No service: No Current occupational status: unemployed and disabled Cognitive needs: No Hearing needs: No Vision needs: Yes (glasses) Questionnaire Thrive Questionnaire Date Thrive assessed: 10/11/23 LUANA-7 AMB Questionnaire LUANA-7 Date LUANA - 7 assessed: 12/13/23 Source: Developed by Drs. Riley Friedman, Dianne Arango, Gordy Roach and colleagues, with an educational rolando from [employer]. ACT Questionnaire In the past 4 weeks, how much of the time did your asthma keep you from getting as much done at work, school or at home?: None of the time During the past 4 weeks, how often have you had shortness of breath?: Not at all During the past 4 weeks, how often did your asthma symptoms wake you up at night or earlier than usual in the morning?: Not at all During the past 4 weeks, how often have you had to use your rescue inhaler or nebulizer medication?: Not at all How would you rate your asthma control during the past 4 weeks?: Completely controlled ACT Interpretation: Negative Score: 25 Review of Systems Const Details: Constitutional: Denies fever. Skin: Denies rash. Eye: Denies eye pain. ENMT: Denies sore throat and nasal congestion. Respiratory: Denies shortness of breath and cough. Gastrointestinal: Denies nausea, vomiting or abdominal pain. Cardiovascular: Denies chest pain and syncope. Genitourinary: Denies dysuria. Musculoskeletal: Denies back pain and extremity pain. Neurologic: Denies headaches, confusion, and weakness. Psychiatric: Denies substance abuse. Allergy/ Immunologic: Denies impaired immunity. Physical exam (Primary Care) Vital Signs: Last Vital Signs Pulse 92 06/19/24 15:27 Resp 14 06/19/24 15:27 BP 98/64 09/16/24 15:27 Pulse Ox 99 06/19/24 15:27 Oxygen Delivery Method Room Air 06/19/24 15:27 BMI result Body Mass Index 18.5 Tobacco/Smoking Status: Tobacco use Status Tobacco use date assessed 03/17/24 06/19/24 15:26 Patient Tobacco Use Status Never used Tobacco 06/19/24 15:26 e-Cigarette/Vaping Use Never Used 06/19/24 15:26 Thrive Assessment: Date of Thrive Assessment Date Thrive assessed 10/11/23 06/19/24 15:26 Const Other: General: Well developed, well nourished, in no acute distress. Appears stated age. Head: Normocephalic, atraumatic. Eyes: Pupils are equal, round and reactive to light and accommodation. Conjunctivae are clear. Vision grossly normal. Ears: TM intact and clear on left, cerumen impaction R Nose: Patent, without discharge. Mouth: There are no ulcers or lesions noted. No inflammation, no post nasal drip, no plaques nor exudates. Neck: Supple, no adenopathy or thyromegaly. Lungs: Clear to auscultation bilaterally. No rales, rhonchi or wheeze noted. Good air flow in all [place]. Heart: Tachycardic, regular rhythm, 2/6 holosystolic murmur Abdomen: Bowel sounds present in all quadrants. I was not able to palpate her abd as she reports she is on her menses Musculoskeletal: Joints are nontender, without swelling, redness, or effusions. Range of motion is observed to be normal. Pulses: Peripheral pulses are equal and palpable bilaterally. Extremities: No clubbing, cyanosis nor edema is noted. Neurologic: Gait and station normal. Cranial Nerves 2-12 intact. Motor strength grossly symmetrical and intact. No sensory loss. Balance normal. Monofilament WNL bilat. Skin: facial acne, acne to posterior trunk, No rashes, ulcers, or lesions noted. Turgor is good. Skin color is good. Hair and nails are without abnormalities. Psych: Mood is flat, mildly guarded and anxious, eye contact c/w Aspergers Office Procedures Diabetic Foot Exam G9226 - Diabetic Foot Exam Assessment and Plan Assessment & Plan (1) Encounter for general adult medical examination with abnormal findings: Code(s): Z00.01 - Encounter for general adult medical examination with abnormal findings (2) Endogenous depression: Comment: On fluoxetine 30 mg daily. Code(s): F33.2 - Major depressive disorder, recurrent severe without psychotic features (3) Attention deficit hyperactivity disorder: Comment: on Adderall XR 25 mg daily and clonidine 0.3 mg daily. Continue Monthly visits set up for refills and checks. Code(s): F90.9 - Attention-deficit hyperactivity disorder, unspecified type Qualifiers: Attention deficit-hyperactivity disorder type: combined inattentive-hyperactive Qualified Code(s): F90.2 - Attention-deficit hyperactivity disorder, combined type (4) Type 1 diabetes mellitus: Comment: Managed by endocrinology. On Omnipod insulin pump up-to-date on diabetic eye exam. Code(s): E10.9 - Type 1 diabetes mellitus without complications Qualifiers: Diabetes mellitus complication status: with hyperglycemia Qualified Code(s): E10.65 - Type 1 diabetes mellitus with hyperglycemia (5) Seizure disorder: Comment: Managed by Neurology. On Keppra. Two seizures in her lifetime. Last seizure January 2022 Code(s): G40.909 - Epilepsy, unspecified, not intractable, without status epilepticus (6) Asperger's syndrome: Code(s): F84.5 - Asperger's syndrome (7) Mild intermittent asthma in adult without complication: Code(s): J45.20 - Mild intermittent asthma, uncomplicated (8) LUANA (generalized anxiety disorder): Code(s): F41.1 - Generalized anxiety disorder (9) Impacted cerumen, right ear: Code(s): H61.21 - Impacted cerumen, right ear (10) Acne: Comment: uses proactive, happy w effects Code(s): L70.9 - Acne, unspecified Qualifiers: Acne type: acne vulgaris Qualified Code(s): L70.0 - Acne vulgaris (11) Insomnia: Code(s): G47.00 - Insomnia, unspecified Qualifiers: Insomnia type: due to other mental disorder Qualified Code(s): F51.05 - Insomnia due to other mental disorder; F99 - Mental disorder, not otherwise specified (12) Seasonal allergies: Code(s): J30.2 - Other seasonal allergic rhinitis (13) Allergy to influenza vaccine: Code(s): Z88.7 - Allergy status to serum and vaccine Orders: Referrals Nurse Navigator Referral F33.2 - Major depressive disorder, recurrent severe without psychotic features Medications: New carbamide peroxide 6.5% (Debrox) 5 drps otic (ears) DAILY 5 days 15 mL 0RF BILAT EARS Refilled clonidine HCl 0.3 mg PO DAILY 90 tabs 0RF Patient Instructions: Crisis Hotlines Suicide prevention, domestic violence, and other crisis hotlines for youth, young adults, and their friends and families. [facility]: The Stalk[employer] [facility] Safeline helps youth who have run away, are thinking about running away, or who already ran away but are ready to come home. Parents and guardians can also contact the hotline if they are worried about their child running away or if their child has already left home. The hotline is available 24 hours a day, seven days a week. Youth, parents, and guardians can also use the online chat feature on the [facility]'s website to ask for help and get support, or can send a text to [address]. [facility] National Suicide Prevention Lifeline: The National Suicide Prevention Lifeline is a network of local crisis centers that are available 26/04 to provide support for youth and adults who are in any kind of emotional crisis. In addition to the main hotline number listed above, there are several other numbers to call depending on your needs: Welsh Language: Deaf and Hard of Hearin1-587.401.4888 Veterans: Disaster Distress: Anyone can also use their online chat feature on their website. [place] Suicide Prevention Lifeline [facility] Helpline: The [facility] Helpline is available to anyone in [place] who is need of emotional support. Anyone can call or text the helpline to receive help from specially trained volunteers. [place] high school and college students can also get online support through the IMHear_ program. For high school students, volunteers ages 15-18 are available Wednesday- from 6-9PM. For college students, IMHear_ is available Wednesday-Wednesday from 5-9PM. The Quinn Project - The Quinn Project is a 26/04 crisis intervention and suicide prevention hotline for LGBTQ youth. Youth can also text Quinn to for support, or use the online chat feature on the Quinn Project's website. [employer] is available Wednesday-Wednesday between 3-10PM. TrevorChat is available seven days a week between 3-10PM. SafeLink: SafeLink is for anyone who is being affected by domestic violence or dating violence. Volunteers at [employer] speak Australian and Welsh, and [employer] also has a service that can provide translation in more than 130 languages. TTY: Health screenings for women You should visit your health care provider from time to time, even if you are healthy. The purpose of these visits is to: Screen for medical issues Assess your risk for future medical problems Encourage a healthy lifestyle Update vaccinations and other preventive care services Help you get to know your provider in case of an illness Information Even if you feel fine, you should still see your provider for regular checkups. These visits can help you avoid problems in the future. For example, the only way to find out if you have high blood pressure is to have it checked regularly. High blood sugar and high cholesterol levels also may not have any symptoms in the early stages. A simple blood test can check for these conditions. There are specific times when you should see your provider or receive specific health screenings. The [place] Preventive Services Task Force publishes a list of recommended screenings. Below are screening guidelines for women ages 18 to 39. BLOOD PRESSURE SCREENING Your blood pressure should be checked at least once every 3 to 5 years if: Your blood pressure is in the normal range (top number less than 120 mm Hg and bottom number less than 80 mm Hg) You don't have risk factors for high blood pressure Ask your provider if you need your blood pressure checked more often if: The top number is 120 to 129 mm Hg or the bottom number is 70 to 79 mm Hg You have diabetes, heart disease, kidney problems, are overweight, or have certain other health conditions You have a first-degree relative with high blood pressure You are Black You had high blood pressure during a If the top number is 130 mm Hg or greater or the bottom number is 80 mm Hg or greater, this is considered stage 1 hypertension. Schedule an appointment with your provider to learn how you can reduce your blood pressure. Watch for blood pressure screenings in your area. Ask your provider if you can stop in to have your blood pressure checked. BREAST CANCER SCREENING Experts do not agree about the benefits of breast self-exams in finding breast cancer or saving lives. Talk to your provider about what is best for you. A screening mammogram is not recommended for most women under age 40. Your provider may discuss and recommend mammograms, MRI scans, or ultrasounds if you have an increased risk for breast cancer, such as: A mother or sister who had breast cancer at a young age (most often starting screening earlier than the age the close relative was diagnosed) You carry a high-risk genetic marker CERVICAL CANCER SCREENING Cervical cancer screening should start at age 21 years unless your provider advises otherwise. After the first test: Women ages 21 through 29 should have a Pap test every 3 years. Exoprts do not agree on whether HPV testing is recommended for this age group. Women ages 30 through 65 should be screened with either a Pap test every 3 years or the HPV test every 5 years or both tests every 5 years (called cotesting ). Women who have been treated for precancer (cervical dysplasia) should continue to have Pap tests for 20 years after treatment or until age 65, whichever is longer. If you have had your uterus and cervix removed (total hysterectomy), and you have not been diagnosed with cervical cancer or precancer (high grade cervical neoplasia), you do not need cervical cancer screening. CHOLESTEROL SCREENING Cholesterol screening should begin at: Age 45 for women with no known risk factors for coronary heart disease Age 20 for women with known risk factors for coronary heart disease Repeat cholesterol screening should take place: Every 5 years for women with normal cholesterol levels More often if changes occur in lifestyle (including weight gain and diet) More often if you have diabetes, heart disease, kidney problems, or certain other conditions DIABETES SCREENING You should be screened for diabetes starting at age 35 and then repeated every 3 years if you have no risk factors for diabetes. Screening may need to start earlier and be repeated more often if you have other risk factors for diabetes, such as: You have a first degree relative with diabetes. You are overweight or have obesity. You have high blood pressure, prediabetes, or a history of heart disease. Screening for diabetes should be done if you are planning to become and you are overweight and have other risk factors such as high blood pressure. DENTAL EXAM Go to the dentist once or twice every year for an exam and cleaning. Your dentist will evaluate if you need more frequent visits. EYE EXAM Have an eye exam every 5 to 10 years before age 40. If you have vision problems, have an eye exam every 2 years or more often if recommended by your provider. You should have an eye exam that includes an examination of your retina (back of your eye) at least every year if you have diabetes. IMMUNIZATIONS Commonly needed vaccines include: Flu shot: get one every year. COVID-19 vaccine: ask your provider what is best for you. Tetanus-diphtheria and acellular pertussis (Tdap) vaccine: have one at or after age 19 as one of your tetanus-diphtheria vaccines if you did not receive it as an adolescent. Tetanus-diphtheria: have a booster (or Tdap) every 10 years. Varicella vaccine: receive 2 doses if you never had chickenpox or the varicella vaccine. Hepatitis B vaccine: receive 2, 3, or 4 doses, depending on your exact circumstances. Measles, mumps, and rubella (MMR) vaccine: receive 1 to 2 doses if you are not already immune to MMR. Your provider can tell you if you are immune. Ask your provider about the human papillomavirus (HPV) vaccine if: You have not received the HPV vaccine in the past You have not completed the full vaccine series (you should catch up on this shot) Ask your provider if you should receive other immunizations if you have certain health problems that increase your risk for some diseases such as pneumonia. INFECTIOUS DISEASE SCREENING Women who are sexually active should be screened for chlamydia and gonorrhea up until age 25. Women 25 years and older should be screened for chlamydia and gonorrhea if at high risk. Screening for hepatitis C: All adults ages 18 to 79 should get a one-time test for hepatitis C. people should be screened at every . Screening for human immunodeficiency virus (HIV): All people ages 15 to 65 should get a one-time test for HIV. Depending on your lifestyle and medical history, you may also need to be screened for infections such as syphilis and HIV, as well as other infections. PHYSICAL EXAM All adults should visit their provider from time to time, even if they are healthy. The purpose of these visits is to: Screen for disease Assess your risk of future medical problems Encourage a healthy lifestyle Update your vaccinations and other preventive care services Maintain a relationship with a provider in case of an illness Your height, weight, and BMI should be checked at every exam. During your exam, your provider may ask you about: Depression and anxiety Diet and exercise Alcohol and tobacco use Safety issues, such as using seat belts, smoke detectors, and intimate partner violence Your medicines and risk for interactions SKIN SELF-EXAM Your provider may check your skin for signs of skin cancer, especially if you're at high risk, such as if you: Have had skin cancer before Have close relatives with skin cancer Have a weakened immune system OTHER SCREENING Talk with your provider about colon cancer screening if you have a strong family history of colon cancer or polyps, or if you have had inflammatory bowel disease or polyps yourself. Routine bone density screening of women under 40 is not recommended. Earwax (Cerumen Impaction) Created in Ears Earwax, called cerumen, is produced by special wax-forming glands located in the skin of the outer one-third of the ear canal. It is normal to have cerumen in ear canal as this waxy substance serves as a self-cleaning agent with protective, lubricating, and antibacterial properties. The absence of earwax may result in dry, itchy ears. Self-cleaning means there is a slow and chief of harbor patrol movement of earwax and skin cells from the eardrum to the ear opening. Old earwax is constantly being transported, assisted by chewing and jaw motion, from the ear canal to the ear opening where, most of the time, it dries, flakes, and falls out. What Are the Symptoms of an Earwax Blockage? Symptoms of an earwax problem may include: Earache Feeling of plugged hearing or fullness in the ear Partial hearing loss that gets worse Tinnitus, ringing, or noises in the ear Itching, odor, or discharge Coughing Pain Infection What Causes Earwax Blockage? When a patient has wax blockage against the eardrum, it is often because they have been probing the ear with such things as cotton-tipped swabs, melba pins, or twisted napkin corners. These objects only push the wax in deeper in the ear canal. Why Is It Dangerous to Use Swabs to Remove Earwax? Wax blockage is one of the most common causes of hearing loss. This is often caused by attempts to clean the ear with cotton swabs. Most cleaning attempts merely push the wax deeper into the ear canal which is shaped like an hourglass, causing a blockage at the narrowing part of the ear canal. In addition, accidental trauma to the ear drum or ear bones can occur if the swab is pushed too deep. Good intentions to keep ears clean may lessen the ability to hear. The ear is a delicate and complicated body part, including the skin of the ear canal and the eardrum. Therefore, special care should be given to this part of the body. Discontinue the habit of inserting cotton-tipped swabs or other objects into the ear canals. What Are the Treatment Options? Cleaning a working ear can be done by washing it with a soft cloth, but do not insert anything into the ear. Ideally, the ear canals should never have to be cleaned. However, that isn?t always the case. The ears should be cleaned when enough earwax gathers to cause symptoms or to prevent a needed assessment of the ear by your doctor. This condition is call cerumen impaction. Most cases of ear wax blockage respond to home treatments used to soften wax. Patients can try placing a few drops of mineral oil, baby oil, glycerin, or commercial drops in the ear. Detergent drops such as hydrogen peroxide or carbamide peroxide (available in most pharmacies) may also aid in the removal of wax. Irrigation or ear syringing is commonly used for cleaning and can be performed by a physician or at home using a commercially available irrigation kit. Common solutions used for syringing include water and saline, which should be warmed to body temperature to prevent dizziness. Ear syringing is most effective when water, saline, or wax dissolving drops are put in the ear canal 15 to 30 minutes before treatment. Caution is advised to avoid having your ears irrigated if you have diabetes, a hole in the eardrum (perforation), tube in the eardrum, skin problems such as eczema in the ear canal or a weakened immune system. >> If you have been prescribed Debrox, use as directed for 5 nights and return to the office on Day 6 for an ear lavage to remove the wax<< Manual removal of earwax is also effective. This is most often performed by an ENT (ear, nose, and throat) specialist, or lawn mower sharpener, using suction or special miniature instruments, and a microscope to magnify the ear canal. Manual removal is preferred if your ear canal is narrow, the eardrum has a perforation or tube, other methods have failed, or if you have skin problems affecting the ear canal, diabetes or a weakened immune system. When Should I Talk to a Doctor? If home treatments do not help, or if wax has accumulated so much that it blocks your ear canal and your ability to hear, an ENT specialist may prescribe eardrops designed to soften wax, or they may wash or vacuum it out. Your ENT specialist may also need to remove the wax under microscopic visualization. If there is a possibility of a perforation in the eardrum, consult a physician prior to trying any [id number] remedies. Putting eardrops or other products in the ear with the presence of an eardrum perforation may cause pain or an infection. Washing water through such a hole could start an infection. If you are prone to repeated wax impaction or use hearing aids, consider seeing your doctor every six to 12 months for a checkup and routine preventive cleaning. What Questions Should I Ask My Doctor? What are the benefits and risks/side effects of different cerumen removal management options: earwax softening products, water irrigation vs. physical removal? Does cerumen accumulation vary with age, gender, familial or dietary intake? How do I manage swimming underwater with cerumen impaction? Should anything be done to the ears to prevent a buildup of earwax? How often should cerumen be removed from the ears? Are ear candles a safe option for removing earwax? 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 disorder (ADHD), combined type F90.2 Attention deficit-hyperactivity disorder type: combined inattentive-hyperactive Type 1 diabetes mellitus with hyperglycemia E10.65 Diabetes mellitus complication status: with hyperglycemia Seizure disorder G40.909 Asperger's syndrome F84.5 Mild intermittent asthma in adult without complication J45.20 LUANA (generalized anxiety disorder) F41.1 Impacted cerumen, right ear H61.21 Acne vulgaris L70.0 Acne type: acne vulgaris Insomnia due to other mental disorder F51.05; F99 Insomnia type: due to other mental disorder Seasonal allergies J30.2 Allergy to influenza vaccine Z88.7 CPT Codes Diabetic Foot Exam - CPT: G9226 - Diabetic Foot Exam ([id number])
[2024-06-19 15:27] VITALS: BP 98/64; PULSE 92; RESP 14; O2SAT 99; BMI 18.5
== END 2024-06-19 16:17 | disposition home or self-care (01) ==
PROVIDERS: PCP Nurse Practitioner Family; Visit Provider Nurse Practitioner Family
DX: Z00.01 Encounter for general adult medical examination with abnormal findings (principal); F33.2 Major depressive disorder, recurrent severe without psychotic features; F90.2 Attention-deficit hyperactivity disorder, combined type; E10.65 Type 1 diabetes mellitus with hyperglycemia; G40.909 Epilepsy, unspecified, not intractable, without status epilepticus; F84.5 Asperger's syndrome; J45.20 Mild intermittent asthma, uncomplicated; F41.1 Generalized anxiety disorder; H61.21 Impacted cerumen, right ear; L70.0 Acne vulgaris; F51.05 Insomnia due to other mental disorder; F99 Mental disorder, not otherwise specified; J30.2 Other seasonal allergic rhinitis; Z88.7 Allergy status to serum and vaccine

== ENCOUNTER → 2024-06-19 15:21 | Outpatient (BNVA) | payer OTHER, SELFPAY | PROVIDERS: PCP Nurse Practitioner Family; Visit Provider Nurse Practitioner Family | DX: Z00.01 Encounter for general adult medical examination with abnormal findings (principal); F33.2 Major depressive disorder, recurrent severe without psychotic features; F90.2 Attention-deficit hyperactivity disorder, combined type; E10.65 Type 1 diabetes mellitus with hyperglycemia; G40.909 Epilepsy, unspecified, not intractable, without status epilepticus; F84.5 Asperger's syndrome; J45.20 Mild intermittent asthma, uncomplicated; F41.1 Generalized anxiety disorder; H61.21 Impacted cerumen, right ear; L70.0 Acne vulgaris; F51.05 Insomnia due to other mental disorder; J30.2 Other seasonal allergic rhinitis; Z79.899 Other long term (current) drug therapy; Z88.7 Allergy status to serum and vaccine | CPT/HCPCS: 96160 ==

== ENCOUNTER 2024-08-11 15:17 | Outpatient (AMB) | payer OTHER, SELFPAY ==
--- NOTE | 2024-08-11 15:28 | MHC.PC.OV ---
Vital Signs 08/11/24 15:32 Height 5 ft 3 in Weight 105 lb BMI 18.6 BP 104/68 Blood Pressure Location Rt brachial Position Sitting Pulse 100 Pulse Source Pulse Oximeter Pulse Oximetry (%) 98 Oxygen Delivery Method Room Air Intake Visit Reasons: ADHD/Rx Intake Note: Medication follow up Allergies Influenza Virus Vaccines Allergy (Intermediate, Verified 08/11/24 15:41) Chills Medication List - Last Reconciled 08/11/24 by Catherine Reese DOG WALKER- blood sugar diagnostic (FreeStyle Lite Strips) As directed clonidine HCl 0.3 mg PO DAILY dextroamphetamine-amphetamine 25 mg ER (Adderall XR) 25 mg PO DAILY fluoxetine 30 mg (3 x 10 mg) PO DAILY glucagon 3 mg/actuation (Baqsimi) mg intranasal insulin glargine (Lantus U-100 Insulin) 10 units subcut QPM insulin lispro (Humalog U-100 Insulin) subcut ketone blood test test blood sugar 4 times a day levetiracetam 750 mg PO BID Tobacco use date assessed: 03/17/24 Dental Screening Dental Screen Date: 03/17/24 HPI HPI Comments History of Present Illness Details 24-year-old female with ADHD, MDD, type 1 diabetes, Asperger syndrome, seizure disorder , generalized anxiety disorder, insomnia, seasonal allergies, mild intermittent asthma, acne Special[facility] End[facility] [address] [facility] [place], [place] Will be transitioning from peds to adult endo Optho DME unsure who at this time Neuro Dr Oliver Voss, last visit 10/2023 Counselor - active in the past Health Maintenance: diabetic eye exam 02/22/2024 at [facility], negative for retinopathy bilat. Pap - never had one. Declined at this time. 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 Looking for more work. Work clearance note printed and handed to her today. Made aware this can be printed again for her in the future if needed. Good for 1 year 06/2025 exp. ADHD: reports tolerance and compliance with this. At this time she would like to find a counselor. Not interested in changing any medications. Her ADHD is well controlled on the current dose of Adderall. Her weight is stable. Appetite is good, trying to eat more. Sleep is good. Some times taking later in the day to keep her concentration intact while at work. Finds self a little scattered in the morning, however is ok with this as happy w/ focus at work. MDD/LUANA, has appt w/ counselor Oct 2024. Denies SI/HI Used debrox R ear. Need lavage. DM a1c as below. Managed by Endo Exam Awake alert NAD Successful lavage R EAC, TM intact and clear, tolerated well. Tachycardic, regular rythym, 2/6 holosystolic murmur LS CTAB Mood and affect appropriate, as expected Plan Refill of prozac and adderall sent today est care w/ counselor as scheduled Successful R ear lavage Cont care w/ Endo. RTO 1 month for ADHD med check, sooner PRN Patient is aware they are being prescribed a controlled substance. They were educated that this medication does require routine monthly office visits to monitor weight, blood pressure, heart rate and to screen for any signs of abuse or misuse. They were educated that they may be subject to random pill counts and/or U tox screenings. The prescription drug monitoring program we will be monitored at each visit to further screen for signs of abuse or misuse to include filling prescriptions at other physician's offices. The patient should maintain prescription refills of the same local pharmacy and advised the provider of any changes immediately. If at any time there is a concern for abuse or misuse or if there are any signs of side effects such as elevated blood pressure, elevated heart rate or weight loss patient is made aware that this medication will be discontinued. The patient is aware of the above and is willing to proceed. This note is constructed using voice recognition software. While every effort has been made to ensure accuracy in street sprinkler, still errors may have been included Sometimes, these errors may affect the content or meaning of the given sentence . Total time spent caring for the patient today was 30 minutes. This includes time spent before the visit reviewing the chart, time spent during the visit, and time spent after the visit on documentation [facility] Medical History Attention deficit hyperactivity disorder Endogenous depression Type 1 diabetes mellitus Seizure disorder Asperger's syndrome Surgical History No pertinent past surgical history Family History (Updated 08/11/24 @ 15:36 by Megan Mukherjee CMA) Maternal Grandmother Depression Other Mental health disorder Social History Housing: House (with parent) Alcohol intake: never Patient Tobacco Use Status: Never used Tobacco e-Cigarette/Vaping Use: Never Used Second Hand Smoke Exposure: No service: No Current occupational status: unemployed and disabled Cognitive needs: No Hearing needs: No Vision needs: Yes (glasses) Questionnaire PHQ-9 Over the last 2 weeks, how often have you been bothered by any of the following problems? 1. Little interest or pleasure in doing things: not at all 2. Feeling down, depressed, or hopeless: not at all 3. Trouble falling or staying asleep, or sleeping too much: not at all 4. Feeling tired or having little energy: not at all 5. Poor appetite or overeating: not at all 6. Feeling bad about yourself - or that you are a failure or have let yourself or your family down: not at all 7. Trouble concentrating on things, such as reading the newspaper or watching television: several days 8. Moving or speaking so slowly that other people could have noticed. Or the opposite - being so fidgety or restless that you have been moving around a lot more than usual: not at all 9. Thoughts that you would be better off or of hurting yourself in some way: not at all Total score: 1 Source: Developed by Drs. Riley Friedman, Dianne Arango, Gordy Roach and colleagues, with an educational rolando from [employer]. Thrive Questionnaire Date Thrive assessed: 10/11/23 I am a: Patient What is your living situation today?: I have a steady place to live Within the past 12 months, did the food you bought not last and you didn't have the money to get more?: Never true Within the past 12 months, did you worry whether your food would run out before you got money to buy more?: Never true Do you have trouble paying for medicines?: No Do you have trouble getting transportation to medical appointments?: No Do you have trouble paying your heating and electricity bill?: No Do you have trouble taking care of your child, family member or friend?: No Do you have trouble with day-to-day activities such as bathing, preparing meals, shopping, managing finances, etc.?: No Are you currently unemployed and looking for a job?: Yes Are you interested in more education?: No Please select the resources that you would like help with: Job search/training Currently or been in a relationship where the following occur: No concerns reported THRIVE Score: 0 AUDIT C Alcohol Use Questionnaire (AUDIT-C) 1. How often do you have a drink containing alcohol?: Never Total Score: 0 LUANA-7 AMB Questionnaire LUANA-7 Date LUANA - 7 assessed: 12/13/23 Feeling nervous, anxious, or on edge: 1 = Several days Not being able to stop or control worryin = Several days Worrying too much about different things: 1 = Several days Trouble relaxin = Several days Being so restless that it is hard to sit still: 0 = Not at all Becoming easily annoyed or irritable: 1 = Several days Feeling afraid as if something awful might happen: 0 = Not at all Total LUANA-7 score (0-4 normal; 5-9 mild; 10-14 moderate; 15-21 severe): 5 Source: Developed by Drs. Riley Friedman, Dianne Arango, Gordy Roach and colleagues, with an educational rolando from [employer]. Physical exam (Primary Care) Vital Signs: Last Vital Signs Pulse 100 08/11/24 15:32 BP 104/68 08/11/24 15:32 Pulse Ox 98 08/11/24 15:32 Oxygen Delivery Method Room Air 08/11/24 15:32 BMI result Body Mass Index 18.6 Tobacco/Smoking Status: Tobacco use Status Tobacco use date assessed 03/17/24 08/11/24 15:30 Patient Tobacco Use Status Never used Tobacco 08/11/24 15:30 e-Cigarette/Vaping Use Never Used 08/11/24 15:30 PHQ-9: PHQ-9 Score PHQ-9: Total score 1 08/11/24 15:30 Thrive Assessment: Date of Thrive Assessment Date Thrive assessed 10/11/23 08/11/24 15:30 Currently or been in a relationship where the following occur: No concerns reported Office Procedures Cerumen Removal From which ear canal was the cerumen removed: right Removal: irrigation Notes: patient tolerated procedure well, no complications and ear canal clear [id number] Irrigation/Lavage Results AMB Hemoglobin A1c AMB Hemoglobin A1c 7.4 % Last Edit by Megan Mukherjee CMA on 08/11/24 15:39 Coding Level of Care Code Est Pt Level 4 (77547) Complex EM visit Add On G2211 Diagnoses Allergy to influenza vaccine Z88.7 LUANA (generalized anxiety disorder) F41.1 Attention deficit hyperactivity disorder (ADHD), combined type F90.2 Attention deficit-hyperactivity disorder type: combined inattentive-hyperactive Type 1 diabetes mellitus with hyperglycemia E10.65 Diabetes mellitus complication status: with hyperglycemia Impacted cerumen, right ear H61.21 CPT Codes Office Procedure - CPT: 88569-Vgy Irrigation/Lavage ([id number]) Assessment & Plan Assessment & Plan (1) Allergy to influenza vaccine: Code(s): Z88.7 - Allergy status to serum and vaccine Category: Medical Plan: . (2) LUANA (generalized anxiety disorder): Code(s): F41.1 - Generalized anxiety disorder Category: Medical Plan: . (3) Attention deficit hyperactivity disorder: Comment: on Adderall XR 25 mg daily and clonidine 0.3 mg daily. Continue Monthly visits set up for refills and checks. Code(s): F90.9 - Attention-deficit hyperactivity disorder, unspecified type Category: Medical Qualifiers: Attention deficit-hyperactivity disorder type: combined inattentive-hyperactive Qualified Code(s): F90.2 - Attention-deficit hyperactivity disorder, combined type Plan: . (4) Type 1 diabetes mellitus: Comment: Managed by endocrinology. On Omnipod insulin pump up-to-date on diabetic eye exam. Code(s): E10.9 - Type 1 diabetes mellitus without complications Category: Medical Qualifiers: Diabetes mellitus complication status: with hyperglycemia Qualified Code(s): E10.65 - Type 1 diabetes mellitus with hyperglycemia Plan: . (5) Impacted cerumen, right ear: Code(s): H61.21 - Impacted cerumen, right ear Plan: . Orders: Orders AMB Hemoglobin A1c Today E10.65 - Type 1 diabetes mellitus with hyperglycemia Medications: Refilled dextroamphetamine-amphetamine 25 mg ER (Adderall XR) Partial Fill upon patient request. 25 mg PO DAILY 30 caps 0RF fluoxetine 30 mg (3 x 10 mg) PO DAILY 90 tabs 3RF
[2024-08-11 15:32] VITALS: BP 104/68; PULSE 100; O2SAT 98; BMI 18.6
== END 2024-08-11 16:18 | disposition home or self-care (01) ==
PROVIDERS: PCP Nurse Practitioner Family; Visit Provider Nurse Practitioner Family
DX: E10.65 Type 1 diabetes mellitus with hyperglycemia (principal); Z88.7 Allergy status to serum and vaccine; F41.1 Generalized anxiety disorder; F90.2 Attention-deficit hyperactivity disorder, combined type; H61.21 Impacted cerumen, right ear

== ENCOUNTER → 2024-08-11 15:17 | Outpatient (BNVA) | payer OTHER, SELFPAY | PROVIDERS: PCP Nurse Practitioner Family; Visit Provider Nurse Practitioner Family | DX: F90.2 Attention-deficit hyperactivity disorder, combined type (principal); F41.1 Generalized anxiety disorder; F32.9 Major depressive disorder, single episode, unspecified; E10.65 Type 1 diabetes mellitus with hyperglycemia; H61.21 Impacted cerumen, right ear; Z88.7 Allergy status to serum and vaccine; Z96.41 Presence of insulin pump (external) (internal) | CPT/HCPCS: 69209; 83036; 96127 ==

== ENCOUNTER 2024-10-03 12:35 | Outpatient (AMB) | payer OTHER, SELFPAY ==
[2024-10-03 12:54] VITALS: BP 102/62; PULSE 102; O2SAT 98; BMI 18.6
--- NOTE | 2024-10-03 12:54 | A.OFFPC_ITS ---
Vital Signs 10/03/24 12:54 Height 5 ft 3 in Weight 105 lb BMI 18.6 BP 102/62 Blood Pressure Location Rt brachial Position Sitting Pulse 102 H Pulse Source Pulse Oximeter Pulse Oximetry (%) 98 Intake Visit Reasons: 1 mo ADHD Allergies Influenza Virus Vaccines Allergy (Intermediate, Verified 10/03/24 13:27) Chills Medication List - Last Reconciled 10/03/24 by LANG OsegueraP- blood sugar diagnostic (FreeStyle Lite Strips) As directed clonidine HCl 0.3 mg PO DAILY dextroamphetamine-amphetamine 25 mg ER (Adderall XR) 25 mg PO DAILY fluoxetine 30 mg (3 x 10 mg) PO DAILY glucagon 3 mg/actuation (Baqsimi) mg intranasal insulin glargine (Lantus U-100 Insulin) 10 units subcut QPM insulin lispro (Humalog U-100 Insulin) subcut ketone blood test test blood sugar 4 times a day levetiracetam 750 mg PO BID Tobacco use date assessed: 03/17/24 Dental Screening Dental Screen Date: 03/17/24 HPI HPI Comments History of Present Illness Details The patient is a 24-year-old female presenting for ADHD medication management and follow-up for Type 1 Diabetes Mellitus. She has been experiencing relatively stable moods with decreasing periods of frustration and reports doing fine in terms of anxiety or nervousness. Her ADHD remains well-managed on the current regimen without any specific issues reported. She denies any seizures, has a stable weight, a good appetite, and reports sleeping well. Her last recorded Hemoglobin A1c is 7.0, and there have been no recent changes in her diabetes medications. Social History - Currently seeking employment and activ alejandro searching for work. Work note w/ accomodations written today. Physical Exam General: Awake, alert. No apparent distress Eyes: Sclera and conjunctiva clear bilaterally Nose: Nares patent, turbinates within normal limits, no sinus tenderness with palpation bilaterally Ears: Tympanic membranes intact and clear bilaterally Throat: Moist mucosa membrane, pharynx within normal limits Cardiovascular: Regular rate and rhythm Respiratory: Clear to auscultation bilaterally Results - Labs: Hemoglobin A1c at 7.0. Plan 1. Schedule next ADHD medication managem ent check-in for December, visits Q 3 months with CPE 06/2025. Patient was informed and verbally consented to the use of an ambient scribe for clinic note documentation during this visit. Discussion Notes I discussed with Juliet the plan to continue her current ADHD medication without any changes, given her stable symptomatology. Her medication has been prescribed for a 90-day supply, aligning with recent modifications in policy allowing extended prescriptions. We also reviewed her diabetes management, which remains stable with an A1c of 7.0; hence no changes to her diabetes regimen are necessary. Patient Instructions - Continue taking ADHD medication as pre scribed. - Monitor blood glucose levels as per [facility] diabetes management plan. - Schedule and attend the next ADHD medi cation management appointment in December. - Follow up for a wellness exam in . - Continue routine follow-ups every thre e months for ADHD management. - Contact the clinic with any questions or changes in health status. This note is constructed using voice recognition software. While every effort has been made to ensure accuracy in flocculator operator, still errors may have been included Sometimes, these errors may affect the content or meaning of the given sentence . [facility] Medical History Attention deficit hyperactivity disorder Endogenous depression Type 1 diabetes mellitus Seizure disorder Asperger's syndrome Surgical History No pertinent past surgical history Family History Maternal Grandmother Depression Other Mental health disorder Social History Housing: House (with parent) Alcohol intake: never Patient Tobacco Use Status: Never used Tobacco e-Cigarette/Vaping Use: Never Used Second Hand Smoke Exposure: No service: No Current occupational status: unemployed and disabled Cognitive needs: No Hearing needs: No Vision needs: Yes (glasses) Questionnaire Thrive Questionnaire Date Thrive assessed: 08/11/24 I am a: Patient What is your living situation today?: I have a steady place to live Within the past 12 months, did the food you bought not last and you didn't have the money to get more?: Never true Within the past 12 months, did you worry whether your food would run out before you got money to buy more?: Never true Do you have trouble paying for medicines?: No Do you have trouble getting transportation to medical appointments?: No Do you have trouble paying your heating and electricity bill?: No Do you have trouble taking care of your child, family member or friend?: No Do you have trouble with day-to-day activities such as bathing, preparing meals, shopping, managing finances, etc.?: No Are you currently unemployed and looking for a job?: Yes Are you interested in more education?: No Please select the resources that you would like help with: Job search/training Currently or been in a relationship where the following occur: No concerns reported THRIVE Score: 0 LUANA-7 AMB Questionnaire LUANA-7 Date LUANA - 7 assessed: 12/13/23 Source: Developed by Drs. Riley Friedman, Dianne Arango, Gordy Roach and colleagues, with an educational rolando from [employer]. Physical exam (Primary Care) Vital Signs: Last Vital Signs Pulse 102 H 10/03/24 12:54 BP 102/62 10/03/24 12:54 Pulse Ox 98 10/03/24 12:54 BMI result Body Mass Index 18.6 Tobacco/Smoking Status: Tobacco use Status Tobacco use date assessed 03/17/24 10/03/24 12:59 Patient Tobacco Use Status Never used Tobacco 10/03/24 12:59 e-Cigarette/Vaping Use Never Used 10/03/24 12:59 Thrive Assessment: Date of Thrive Assessment Date Thrive assessed 08/11/24 10/03/24 12:59 Currently or been in a relationship where the following occur: No concerns reported Coding Level of Care Code Est Pt Level 3 (35779) Complex EM visit Add On G2211 Diagnoses Attention deficit hyperactivity disorder (ADHD), combined type F90.2 Attention deficit-hyperactivity disorder type: combined inattentive- hyperactive LUANA (generalized anxiety disorder) F41.1 Type 1 diabetes mellitus with hyperglycemia E10.65 Diabetes mellitus complication status: with hyperglycemia Seizure disorder G40.909 Assessment & Plan Assessment & Plan (1) Attention deficit hyperactivity disorder: Comment: on Adderall XR 25 mg daily and clonidine 0.3 mg daily. Continue Code(s): F90.9 - Attention-deficit hyperactivity disorder, unspecified type Category: Medical Qualifiers: Attention deficit-hyperactivity disorder type: combined inattentive- hyperactive Qualified Code(s): F90.2 - Attention-deficit hyperactivity disorder, combined type (2) LUANA (generalized anxiety disorder): Code(s): F41.1 - Generalized anxiety disorder Category: Medical (3) Type 1 diabetes mellitus: Comment: Managed by endocrinology. On Omnipod insulin pump up-to-date on diabetic eye exam. Code(s): E10.9 - Type 1 diabetes mellitus without complications Category: Medical Qualifiers: Diabetes mellitus complication status: with hyperglycemia Qualified Code(s): E10.65 - Type 1 diabetes mellitus with hyperglycemia (4) Seizure disorder: Comment: Managed by Neurology. On Keppra. Two seizures in her lifetime. Last seizure January 2022 Code(s): G40.909 - Epilepsy, unspecified, not intractable, without status epilepticus Category: Medical Plan / Medications: Refilled dextroamphetamine-amphetamine 25 mg ER (Adderall XR) Partial Fill upon patient request. 25 mg PO DAILY 90 caps 0RF
== END 2024-10-03 13:33 | disposition home or self-care (01) ==
PROVIDERS: PCP Nurse Practitioner Family; Visit Provider Nurse Practitioner Family
DX: F90.2 Attention-deficit hyperactivity disorder, combined type (principal); F41.1 Generalized anxiety disorder; E10.65 Type 1 diabetes mellitus with hyperglycemia; G40.909 Epilepsy, unspecified, not intractable, without status epilepticus

== ENCOUNTER → 2024-10-03 12:35 | Outpatient (BNVA) | payer OTHER, SELFPAY | PROVIDERS: PCP Nurse Practitioner Family; Visit Provider Nurse Practitioner Family ==

== ENCOUNTER 2025-01-17 14:51 | Outpatient (AMB) | payer OTHER, SELFPAY ==
--- NOTE | 2025-01-17 14:53 | A.OFFPC_ITS ---
Vital Signs 01/17/25 14:56 Height 5 ft 3 in Weight 103 lb BMI 18.2 BP 101/68 Blood Pressure Location Lt brachial Position Sitting Respiration 12 Pulse 85 Pulse Source Pulse Oximeter Temp 97.6 F Temp Source Oral Pulse Oximetry (%) 98 Oxygen Delivery Method Room Air Intake Visit Reasons: F/u meds Intake Note: Follow up on meds Armature Rewinder Required: No Allergies Influenza Virus Vaccines Allergy (Intermediate, Verified 01/17/25 15:07) Chills Medication List - Last Reconciled 01/17/25 by Catherine [facility]Rese [facility] blood sugar diagnostic (FreeStyle Lite Strips) As directed clonidine HCl 0.3 mg PO DAILY dextroamphetamine-amphetamine 25 mg ER (Adderall XR) 25 mg PO DAILY fluoxetine 30 mg (3 x 10 mg) PO DAILY glucagon 3 mg/actuation (Baqsimi) mg intranasal insulin glargine (Lantus U-100 Insulin) 10 units subcut QPM insulin lispro (Humalog U-100 Insulin) subcut ketone blood test test blood sugar 4 times a day levetiracetam 750 mg PO BID Tobacco use date assessed: 01/17/25 Dental Screening Dental Screen Date: 01/17/25 Did you have a dental visit in the last 12 months?: Yes Did you have a dental problem in the last 6 months where you did not have access to dental care?: No Was dental information given to patient?: Patient has dentist HPI HPI Comments History of Present Illness Details 24-year-old female with ADHD, MDD, type 1 diabetes, Asperger syndrome, seizure disorder , generalized anxiety disorder, insomnia, seasonal allergies, mild intermittent asthma, acne Specialists Endocrinology [address] [place] [address] Will be transitioning from peds to adult endo Optho DME 10/[address] Oliver Voss, last visit 10/2023 Counselor - active in the past Health Maintenance: diabetic eye exam 02/22/2024 at [facility], negative for retinopathy bilat. Pap - never had one. Declined at this time. The patient is a 24-year-old female presenting for ADHD medication management and follow-up for Type 1 Diabetes Mellitus. She has been experiencing relatively stable moods. Her ADHD remains well-managed on the current regimen without any specific issues reported. She denies any seizures. Is on Keppra. Weight down 2 lbs, however reports a good appetite sleeping well. Her last recorded Hemoglobin A1c is 7.2, done by Endo about 1 month ago; there have been no recent changes in her diabetes medications. DM Eye exam Oct 2024, negative for diabetic retinopathy per reports; will request records Working at [employer] Seasonal allergies, itchy left eye; does not take antihistamines; does not want treatment. Physical Exam General: Awake, alert. No apparent distress Eyes: Sclera and conjunctiva clear bilaterally, allergic shiners, L>R Cardiovascular: Regular rate and rhythm Respiratory: Clear to auscultation bilaterally Mood and affect appropriate Plan Cont care w/ care team, cont all meds as prescribed Schedule next ADHD medication management check-in for April, visits Q 3 months with CPE 06/2025. Patient was informed and verbally consented to the use of an ambient scribe for clinic note documentation during this visit. Patient Instructions - Continue taking ADHD medication as pre scribed. - Monitor blood glucose levels as per cu rrent diabetes management plan. - Schedule and attend the next ADHD medi cation management appointment in December. - Follow up for a wellness exam in . - Continue routine follow-ups every thre e months for ADHD management. - Contact the clinic with any questions or changes in health status. This note is constructed using voice recognition software. While every effort has been made to ensure accuracy in lead php developer, still errors may have been included Sometimes, these errors may affect the content or meaning of the given sentence . [facility] Medical History Attention deficit hyperactivity disorder Endogenous depression Type 1 diabetes mellitus Seizure disorder Asperger's syndrome Surgical History No pertinent past surgical history Family History Maternal Grandmother Depression Other Mental health disorder Social History Housing: House (with parent) Alcohol intake: never Patient Tobacco Use Status: Never used Tobacco e-Cigarette/Vaping Use: Never Used Second Hand Smoke Exposure: No service: No Current occupational status: unemployed and disabled Cognitive needs: No Hearing needs: No Vision needs: Yes (glasses) Questionnaire PHQ-9 Over the last 2 weeks, how often have you been bothered by any of the following problems? 1. Little interest or pleasure in doing things: not at all 2. Feeling down, depressed, or hopeless: not at all 3. Trouble falling or staying asleep, or sleeping too much: not at all 4. Feeling tired or having little energy: several days 5. Poor appetite or overeating: not at all 6. Feeling bad about yourself - or that you are a failure or have let yourself or your family down: not at all 7. Trouble concentrating on things, such as reading the newspaper or watching television: several days 8. Moving or speaking so slowly that other people could have noticed. Or the opposite - being so fidgety or restless that you have been moving around a lot more than usual: several days 9. Thoughts that you would be better off or of hurting yourself in some way: not at all Total score: 3 Depression Screening Interpretation: Negative Depression Screening Done: Yes 17785 - PHQ-9 Billing: Yes Source: Developed by Drs. Riley Friedman, Dianne Arango, Gordy Roach and colleagues, with an educational rolando from [employer]. Thrive Questionnaire Date Thrive assessed: 01/17/25 I am a: Patient What is your living situation today?: I have a steady place to live Within the past 12 months, did the food you bought not last and you didn't have the money to get more?: Never true Within the past 12 months, did you worry whether your food would run out before you got money to buy more?: Never true Do you have trouble paying for medicines?: No Do you have trouble getting transportation to medical appointments?: No Do you have trouble paying your heating and electricity bill?: No Do you have trouble taking care of your child, family member or friend?: No Do you have trouble with day-to-day activities such as bathing, preparing meals, shopping, managing finances, etc.?: No Are you currently unemployed and looking for a job?: Yes Are you interested in more education?: No Please select the resources that you would like help with: None Currently or been in a relationship where the following occur: No concerns reported THRIVE Score: 0 AUDIT C Alcohol Use Questionnaire (AUDIT-C) 1. How often do you have a drink containing alcohol?: Monthly or less 2. How many drinks containing alcohol do you have on a typical day when you are drinking?: 1 or 2 3. How often do you have six or more drinks on one occasion?: Never Total Score: 1 LUANA-7 AMB Questionnaire LUANA-7 Date LUANA - 7 assessed: 01/17/25 Feeling nervous, anxious, or on edge: 1 = Several days Not being able to stop or control worryin = Several days Worrying too much about different things: 1 = Several days Trouble relaxin = Not at all Being so restless that it is hard to sit still: 1 = Several days Becoming easily annoyed or irritable: 1 = Several days Feeling afraid as if something awful might happen: 0 = Not at all Total LUANA-7 score (0-4 normal; 5-9 mild; 10-14 moderate; 15-21 severe): 5 Source: Developed by Drs. Riley Friedman, Dianne Arango, Gordy Roach and colleagues, with an educational rolando from [employer]. LUANA-7 Assessment Billing LUANA-7 Assessment Tool: LUANA-7 Assessment 86295 Physical exam (Primary Care) Vital Signs: Last Vital Signs Temp 97.6 F 01/17/25 14:56 Pulse 85 01/17/25 14:56 Resp 12 01/17/25 14:56 BP 101/68 01/17/25 14:56 Pulse Ox 98 01/17/25 14:56 Oxygen Delivery Method Room Air 01/17/25 14:56 BMI result Body Mass Index 18.2 Tobacco/Smoking Status: Tobacco use Status Tobacco use date assessed 01/17/25 01/17/25 14:56 Patient Tobacco Use Status Never used Tobacco 01/17/25 14:56 e-Cigarette/Vaping Use Never Used 01/17/25 14:56 PHQ-9: PHQ-9 Score PHQ-9: Total score 3 01/17/25 14:56 Depression Screening Interpretation: Negative Thrive Assessment: Date of Thrive Assessment Date Thrive assessed 01/17/25 01/17/25 14:56 Currently or been in a relationship where the following occur: No concerns reported Coding Level of Care Code Est Pt Level 4 (08708) Complex EM visit Add On G2211 Diagnoses 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 Attention deficit hyperactivity disorder (ADHD), combined type F90.2 Attention deficit-hyperactivity disorder type: combined inattentive- hyperactive LUANA (generalized anxiety disorder) F41.1 Insomnia due to other mental disorder F51.05; F99 Insomnia type: due to other mental disorder Seizure disorder G40.909 Type 1 diabetes mellitus with hyperglycemia E10.65 Diabetes mellitus complication status: with hyperglycemia Seasonal allergies J30.2 Additional Codes LUANA-7 Assessment Billing - LUANA-7 Assessment Tool: LUANA-7 Assessment 62413 ([id number]) PHQ-9 - 37100 - PHQ-9 Billing: Yes ([id number]) Assessment & Plan Assessment & Plan (1) Endogenous depression: Comment: On fluoxetine 30 mg daily. Code(s): F33.2 - Major depressive disorder, recurrent severe without psychotic features Category: Medical (2) Attention deficit hyperactivity disorder: Comment: on Adderall XR 25 mg daily and clonidine 0.3 mg daily. Continue Code(s): F90.9 - Attention-deficit hyperactivity disorder, unspecified type Category: Medical Qualifiers: Attention deficit-hyperactivity disorder type: combined inattentive- hyperactive Qualified Code(s): F90.2 - Attention-deficit hyperactivity disorder, combined type (3) LUANA (generalized anxiety disorder): Code(s): F41.1 - Generalized anxiety disorder Category: Medical (4) Insomnia: Code(s): G47.00 - Insomnia, unspecified Category: Medical Qualifiers: Insomnia type: due to other mental disorder Qualified Code(s): F51.05 - Insomnia due to other mental disorder; F99 - Mental disorder, not otherwise specified (5) Seizure disorder: Comment: Managed by Neurology. On Keppra. Two seizures in her lifetime. Last seizure January 2022 Code(s): G40.909 - Epilepsy, unspecified, not intractable, without status epilepticus Category: Medical (6) Type 1 diabetes mellitus: Comment: Managed by endocrinology. On Omnipod insulin pump up-to-date on diabetic eye exam. Code(s): E10.9 - Type 1 diabetes mellitus without complications Category: Medical Qualifiers: Diabetes mellitus complication status: with hyperglycemia Qualified Code(s): E10.65 - Type 1 diabetes mellitus with hyperglycemia (7) Seasonal allergies: Code(s): J30.2 - Other seasonal allergic rhinitis Category: Medical Plan . Medications: Refilled dextroamphetamine-amphetamine 25 mg ER (Adderall XR) Partial Fill upon patient request. 25 mg PO DAILY 90 caps 0RF F90.2 - Attention-deficit hyperactivity disorder, combined type
[2025-01-17 14:56] VITALS: BP 101/68; PULSE 85; RESP 12; TEMP 36.4; O2SAT 98; BMI 18.2
--- OUTSIDE RECORDS SUMMARY | 2025-01-17 17:34 | XMS_ITS | Encounter Summary ---
Author Organization [facility] Address [address] [place] [address] Phone Care Team Providers Care Fishing Tool Technician Oil Well Name Role Phone Peri Ayala MD Primary Care Provider [phone] Reason for Visit * Reason Comments Med Refill Encounter Details Date Type Department Care Team (Late st Contact Info) Description 07/16/2019 Refill [facility] [place] [address] [place] [address] Peri Ayala MD [address] [place] [address] Sleep disturbance; Anxiety disorder, unspecified type Social History Tobacco Use Types Packs/Day Years Used Date Smoking Tobacco: Never Smokeless Tobacco: Never Alcohol Use Standard Drinks/Week Comments Never 0 (1 standard drink = 0.6 oz pur e alcohol) Hunger/Food Answer Date Recorded No 01/26/2019 Stable Housing Answer Date Recorded 0 01/26/2019 Transportation Concerns Answer Date Rec orded No 01/26/2019 Hazards in Home Answer Date Recorded No 01/26/2019 Financing Utilities Answer Date Recorde d No 01/26/2019 Safety at Home Answer Date Recorded No 01/26/2019 Outside Support Answer Date Recorded No 01/26/2019 Understanding Health Concerns Answer Da te Recorded No 01/26/2019 Financing Health Concerns Answer Date R ecorded No 01/26/2019 Missing School or Work Answer Date Jame rded No 01/26/2019 Comments No Sex and Gender Information Value Date Recorded Sex Assigned at Female 03/04/2020 11:10 AM EDT Legal Sex Female 4:56 PM EDT Gender Identity Female 03/04/2020 11:10 AM EDT Sexual Orientation Bisexual 03/04/2020 11 :10 AM EDT documented as of this encounter Miscellaneous Notes * Telephone Encounter - Peri Ayala MD - 07/18/2019 10:05 PM EDT Already prescribed * Telephone Encounter - Kelin Silva LPN - 07/17/2019 11:36 AM EDT Pharm fax refill request fluoxetine. EH documented in this encounter Plan of Treatment Not on file documented as of this encounter Visit Diagnoses Diagnosis Sleep disturbance Unspecified sleep disturbance Anxiety disorder, unspecified type documented in this encounter Care Teams Fishing Tool Technician Oil Well Relationship Specialty Start Date End Date Peri Ayala MD [address] [place] [address] PCP - General Pediatrics 04/03/18 10/21/23 documented as of this encounter
--- OUTSIDE RECORDS SUMMARY | 2025-01-17 17:34 | XMS_ITS | Encounter Summary ---
Author Organization [facility] Address [address] [place] [address] Phone Care Team Providers Care Security Strategist Name Role Phone Peri Ayala MD Primary Care Provider [phone] Encounter Details Date Type Department Care Team (Late st Contact Info) Description 05/20/2017 Conversion Encounter [facility] [address] [place] [address] Social History Tobacco Use Types Packs/Day Years Used Date Smoking Tobacco: Never Assessed Comments Unknown Sex and Gender Information Value Date Recorded Sex Assigned at Female 03/04/2020 11:10 AM EDT Legal Sex Female 4:56 PM EDT Gender Identity Female 03/04/2020 11:10 AM EDT Sexual Orientation Bisexual 03/04/2020 11 :10 AM EDT documented as of this encounter Plan of Treatment Not on file documented as of this encounter Visit Diagnoses Not on filedocumented in this encounter Care Teams Security Strategist Relationship Specialty Start Date End Date Peri Ayala MD [address] [place] [address] PCP - General Pediatrics 04/03/18 10/21/23 documented as of this encounter
--- OUTSIDE RECORDS SUMMARY | 2025-01-17 17:34 | XMS_ITS | Encounter Summary ---
Author Organization [facility] Address [address] [place] [address] Phone Care Team Providers Care Pathology Laboratory Technologist Name Role Phone Peri Ayala MD Primary Care Provider [phone] Encounter Details Date Type Department Care Team (Late st Contact Info) Description 12/01/2011 Documentation [facility] [place] [address] [place], [place] [phone] Family Medicine, Physician [address] [place], [place] [phone] Social History Tobacco Use Types Packs/Day Years [...] on filedocumented in this encounter Care Teams Pathology Laboratory Technologist Relationship Specialty Start Date End Date Peri Ayala MD [address] [place] [address] PCP - General Pediatrics 04/03/18 10/21/23 documented as of this encounter
--- OUTSIDE RECORDS SUMMARY | 2025-01-17 17:34 | XMS_ITS | Encounter Summary ---
Author Organization [facility] Address [address] [place] [address] Phone Care Team Providers Care Tunnel Drier Operator Name Role Phone Peri Ayala MD Primary Care Provider [phone] Encounter Details Date Type Department Care Team (Late st Contact Info) Description 03/24/2010 Documentation [facility] Family Medicine [address] [place] [address] Family Medicine, Physician [address] [place], [place] [phone] Social History Tobacco Use Types Packs/Day Years [...] on filedocumented in this encounter Care Teams Tunnel Drier Operator Relationship Specialty Start Date End Date Peri Ayala MD [address] [place] [address] PCP - General Pediatrics 04/03/18 10/21/23 documented as of this encounter
--- OUTSIDE RECORDS SUMMARY | 2025-01-17 17:34 | XMS_ITS | Encounter Summary ---
Author Organization [facility] Address [address] [place] [address] Phone Care Team Providers Care Diversified Crops I Farmworker Name Role Phone Peri Ayala MD Primary Care Provider [phone] Encounter Details Date Type Department Care Team (Late st Contact Info) Description 12/09/2009 [place] [facility] [place] [address] [place] [address] Family Medicine, Physician [address] [place], [place] [phone] Social History Tobacco Use Types Packs/Day Years [...] on filedocumented in this encounter Care Teams Diversified Crops I Farmworker Relationship Specialty Start Date End Date Peri Ayala MD [address] [place] [address] PCP - General Pediatrics 04/03/18 10/21/23 documented as of this encounter
--- OUTSIDE RECORDS SUMMARY | 2025-01-17 17:34 | XMS_ITS | Encounter Summary ---
Author Organization [facility] Address [address] [place] [address] Phone Care Team Providers Care Bridge Mechanic Name Role Phone Peri Ayala MD Primary Care Provider [phone] Encounter Details Date Type Department Care Team (Late st Contact Info) Description 10/22/2011 Documentation [facility] [place] [address] [place], [place] [phone] Family Medicine, Physician [address] [place], [place] [phone] Social History Tobacco Use Types Packs/Day Years [...] on filedocumented in this encounter Care Teams Bridge Mechanic Relationship Specialty Start Date End Date Peri Ayala MD [address] [place] [address] PCP - General Pediatrics 04/03/18 10/21/23 documented as of this encounter
--- OUTSIDE RECORDS SUMMARY | 2025-01-17 17:34 | XMS_ITS | Encounter Summary ---
Author Organization [facility] Address [address] [place] [address] Phone Care Team Providers Care Jacker Feeder Name Role Phone Peri Ayala MD Primary Care Provider [phone] Encounter Details Date Type Department Care Team (Late st Contact Info) Description 01/14/2015 Documentation [facility] [place] [address] [place], [place] [phone] Family Medicine, Physician [address] [place], [place] [phone] Social History Tobacco Use Types Packs/Day Years [...] on filedocumented in this encounter Care Teams Jacker Feeder Relationship Specialty Start Date End Date Peri Ayala MD [address] [place] [address] PCP - General Pediatrics 04/03/18 10/21/23 documented as of this encounter
--- OUTSIDE RECORDS SUMMARY | 2025-01-17 17:34 | XMS_ITS | Encounter Summary ---
Author Organization [facility] Address [address] [place] [address] Phone Care Team Providers Care Psychiatric Aides Teacher Name Role Phone Peri Ayala MD Primary Care Provider [phone] Encounter Details Date Type Department Care Team (Late st Contact Info) Description 02/16/2017 Documentation [facility] [place] [address] [place], [place] [phone] Family Medicine, Physician [address] [place], [place] [phone] Social History Tobacco Use Types Packs/Day Years [...] on filedocumented in this encounter Care Teams Psychiatric Aides Teacher Relationship Specialty Start Date End Date Peri Ayala MD [address] [place] [address] PCP - General Pediatrics 04/03/18 10/21/23 documented as of this encounter
--- OUTSIDE RECORDS SUMMARY | 2025-01-17 17:34 | XMS_ITS | Encounter Summary ---
Author Organization [facility] Address [address] [place] [address] Phone Care Team Providers Care County Adviser Name Role Phone Peri Ayala MD Primary Care Provider [phone] Encounter Details Date Type Department Care Team (Late st Contact Info) Description 11/11/2015 Documentation [facility] [place] [address] [place], [place] [phone] Family Medicine, Physician [address] [place], [place] [phone] Social History Tobacco Use Types Packs/Day Years [...] on filedocumented in this encounter Care Teams County Adviser Relationship Specialty Start Date End Date Peri Ayala MD [address] [place] [address] PCP - General Pediatrics 04/03/18 10/21/23 documented as of this encounter
--- OUTSIDE RECORDS SUMMARY | 2025-01-17 17:34 | XMS_ITS | Encounter Summary ---
Author Organization [facility] Address [address] [place] [address] Phone Care Team Providers Care Copy Editor Name Role Phone Peri Ayala MD Primary Care Provider Encounter Details Date Type Department Care Team (Late st Contact Info) Description 11/27/2014 Documentation [facility] [place] [address] [place], [place] [phone] Family Medicine, Physician [address] [place], [place] [phone] Social History Tobacco Use Types Packs/Day Years [...] on filedocumented in this encounter Care Teams Copy Editor Relationship Specialty Start Date End Date Peri Ayala MD [address] [place] [address] PCP - General Pediatrics 04/03/18 10/21/23 documented as of this encounter
--- OUTSIDE RECORDS SUMMARY | 2025-01-17 17:34 | XMS_ITS | Encounter Summary ---
Author Organization [facility] Address [address] [place] [address] Phone Care Team Providers Care Dry Transfer Man Name Role Phone Peri Ayala MD Primary Care Provider [phone] Encounter Details Date Type Department Care Team (Late st Contact Info) Description 12/04/2009 Documentation [facility] [place] [address] [place] [address] Family Medicine, Physician [address] [place], [place] [phone] Social History Tobacco Use Types Packs/Day Years [...] on filedocumented in this encounter Care Teams Dry Transfer Man Relationship Specialty Start Date End Date Peri Ayala MD [address] [place] [address] PCP - General Pediatrics 04/03/18 10/21/23 documented as of this encounter
--- OUTSIDE RECORDS SUMMARY | 2025-01-17 17:34 | XMS_ITS | Encounter Summary ---
Author Organization [facility] Address [address] [place] [address] Phone Care Team Providers Care E Learning Designer Name Role Phone Peri Ayala MD Primary Care Provider [phone] Encounter Details Date Type Department Care Team (Late st Contact Info) Description 01/04/2017 Documentation [facility] [place] [address] [place], [place] [phone] Family Medicine, Physician [address] [place], [place] [phone] Social History Tobacco Use Types Packs/Day Years [...] on filedocumented in this encounter Care Teams E Learning Designer Relationship Specialty Start Date End Date Peri Ayala MD [address] [place] [address] PCP - General Pediatrics 04/03/18 10/21/23 documented as of this encounter
--- OUTSIDE RECORDS SUMMARY | 2025-01-17 17:34 | XMS_ITS | Encounter Summary ---
Author Organization [facility] Address [address] [place] [address] Phone Care Team Providers Care Medical Aide Name Role Phone Peri Ayala MD Primary Care Provider [phone] Encounter Details Date Type Department Care Team (Late st Contact Info) Description 05/05/2017 Documentation [facility] [place] [address] [place], [place] [phone] Family Medicine, Physician [address] [place], [place] [phone] Social History Tobacco Use Types Packs/Day Years [...] on filedocumented in this encounter Care Teams Medical Aide Relationship Specialty Start Date End Date Peri Ayala MD [address] [place] [address] PCP - General Pediatrics 04/03/18 10/21/23 documented as of this encounter
--- OUTSIDE RECORDS SUMMARY | 2025-01-17 17:34 | XMS_ITS | Encounter Summary ---
Author Organization [facility] Address [address] [place] [address] Phone Care Team Providers Care Pipe Cutter Name Role Phone Peri Ayala MD Primary Care Provider [phone] Encounter Details Date Type Department Care Team (Late st Contact Info) Description 11/21/2014 Documentation [facility] [place] Family Medicine [address] [place], [place] [id number] Family Medicine, Physician [address] [place], [place] [id number] Social History Tobacco Use Types Packs/Day Years [...] on filedocumented in this encounter Care Teams Pipe Cutter Relationship Specialty Start Date End Date Peri Ayala MD [address] [place] [address] PCP - General Pediatrics 04/03/18 10/21/23 documented as of this encounter
--- OUTSIDE RECORDS SUMMARY | 2025-01-17 17:34 | XMS_ITS | Encounter Summary ---
Author Organization [facility] Address [address] [place] [address] Phone Care Team Providers Care Financial Sales Representative Name Role Phone Peri Ayala MD Primary Care Provider [phone] Encounter Details Date Type Department Care Team (Late st Contact Info) Description 11/14/2015 Documentation [facility] [place] Family Medicine [address] [place] [address] Family Medicine, Physician [address] [place], [place] [phone] Social History Tobacco Use Types Packs/Day Years [...] on filedocumented in this encounter Care Teams Financial Sales Representative Relationship Specialty Start Date End Date Peri Ayala MD [address] [place] [address] PCP - General Pediatrics 04/03/18 10/21/23 documented as of this encounter
--- OUTSIDE RECORDS SUMMARY | 2025-01-17 17:34 | XMS_ITS | Encounter Summary ---
Author Organization [facility] Address [address] [place] [address] Phone Care Team Providers Care Director Search Name Role Phone Peri Ayala MD Primary Care Provider Encounter Details Date Type Department Care Team (Late st Contact Info) Description 11/23/2014 Documentation [facility] [place] Family Medicine [address] [place], [place] [phone] Family Medicine, Physician [address] [place], [place] [phone] Social History Tobacco Use Types Packs/Day Years [...] on filedocumented in this encounter Care Teams Director Search Relationship Specialty Start Date End Date Peri Ayala MD [address] [place] [address] PCP - General Pediatrics 04/03/18 10/21/23 documented as of this encounter
--- OUTSIDE RECORDS SUMMARY | 2025-01-17 17:34 | XMS_ITS | Clinical Summary ---
Author Organization [facility] Address [address] [place] [phone] Phone Care Team Providers Care Apartment Rental Agent Name Role Phone Unavailable Primary Care Provider Unavailabl e Allergies No known active allergies Medications FREESTYLE LITE test strip USE TO TEST UP TO 10 TIMES DAILY AT HOME AND SCHOOL 6 7 Active albuterol HFA 108 (90 BASE) MCG/ACT inhaler every 4 (four) hours as needed for wheezing. Active Pediatric Multivit-Minerals- C (MULTIVITAMIN GUMMIES CHILDRENS PO) Take by mouth. Active Lantus 100 UNIT/ML injection INJECT A MAX OF 15 UNITS DAILY DIRECTED 1 Active Baqsimi One Pack 3 MG/DOSE powder 1 Active Insulin Disposable Pump (OmniPod Starter) kit Active levETIRAcetam 750 MG tablet Take 750 mg by mouth 2 (two) times a day. 1 Active Acetone, Urine, Test (KETOSTIX ) See Instructions, # 200 each, Refills 11, Tot. Refills 11, Maintenance, use for type I diabetes. Use for home and school. Use 4 x/daily for b/s >300mg/dl., 01/01/22 9:48:00 EDT, Compound, 163.3, cm, 01/01/22 9:11:00 EDT, Height, 49.25, kg, 01/01/22 9:... 2 Active HumaLOG 100 UNIT/ML solution DIRECTED MAX DAILY DOSE OF 60 UNITS 2 Active levETIRAcetam 750 MG tablet Take 1 tablet by mouth. 2 Active cloNIDine 0.3 MG tabletIndications: Anxiety disorder, unspecified type TAKE 1 TABLET(0.3 MG) BY MOUTH EVERY NIGHT 30 tablet 3 3 Active FLUoxetine 10 MG tabletIndications: Anxiety disorder, unspecified type Take 3 tablets (30 mg total) by mouth daily. 270 tablet 3 Active amphetamine-dextro amphetamine XR (Adderall XR) 25 MG 24 hr capsuleIndications :Attention deficit disorder (ADD) without hyperactivity Take 1 capsule (25 mg total) by mouth every morning. 30 capsule 3 Active Active Problems Problem Noted Date Diagnosed Date Elevated anti-tissue transglutaminase (tTG) IgA level 07/27/2023 Overview (07/27/2023): 11/15/14 ttg-IgA 8 (nl < 4) 12/31/[address] Goins grossly nl 07/17/23 ttg-IgA 26.8 (H) 07/26/23- pedi GI (referred by endo due to slightly elevated ttg ab --> no endoscopy right now, nl diet for now, rpt bloodwork in 3mo with low threshold for endoscopy if serum still elevated Unintentional weight loss 03/31/2021 Overview (03/31/2021): Likely due to decreased appetite on Concerta. Assessment & Plan (07/09/2022 9:33 AM EDT): Weight up a little, overall up and down. Continue to follow. Assessment & Plan (10/23/2021 5:35 PM EST): Will add Vadito Instant Breakfast once per day and mom will continue to encourage higher calorie foods. Continue to follow weight. If continues to lose weight, will need to consider change in med or addition of cyproheptadine. Assessment & Plan (07/18/2021 8:51 AM EDT): Weight is stable, continue to follow. Assessment & Plan (03/31/2021 5:27 PM EDT): Likely due to decreased appetite on Concerta. Will continue to follow but if continues to lose weight, will need to consider decrease in dose versus changing stimulant versus cyprohepatadine. Seizure 07/25/2020 Overview (07/18/2021): Started on Keppra 500mg bid 01/05/21, increased to maintenance dose of 750mg bid 02/04/21. First time seizure 07/20/20, second seizure 01/05/21. 08/23- nl EEG, nl MRI. 01/22- nl 24hr EEG Followed by [facility] neuro since 08/19/20 (Amber Fitzgerald, [facility])- Last visit 07/04/21- epilepsy (versus PNES, convulsive syncope), consider photosensitive trigger, high dose stimulant unlikely trigger as had been on high dose Adderall for years, continue Keppra at 750mg bid, to do 5d video EEG 02/21 if she has another episode, f/u 1 year. Assessment & Plan (07/09/2022 9:31 AM EDT): Has neuro appt end of Jul. Still on Keppra, no SEs, no seizures. Assessment & Plan (05/16/2021 3:40 PM EDT): Still on Keppra. Has next neuro appt in Jun. Assessment & Plan (01/23/2021 2:03 PM EDT): 48hr EEG is scheduled 01/29/21, and f/u appt is 02/04/21. Assessment & Plan (09/24/2020 12:06 PM EST): Discussed with patient. Given normal workup, just watching for now. Mild scoliosis 01/26/2019 Overview (03/04/2020): Up to 4 degrees on scoliometer 01/20 and 02/20 Assessment & Plan (03/04/2020 11:25 AM EDT): Follow clinically as not worsening and likely done growing. Assessment & Plan (01/26/2019 4:21 PM EDT): Follow clinically as likely done growing and mild. Refused influenza vaccine 08/12/2018 Overview (08/15/2019): 2017-2018- Vaccine refused by parent 08/12/2018 Overview (08/12/2018): Refuses HPV vaccine despite counseling Subclinical hyperthyroidism 05/28/2018 Overview (04/20/2019): Low TSH 05/21, thyroid ultrasound ordered 09/20 due to mildly elevated antibodies (though TFTs nl on repeat 09/20) - normal ultrasound 09/28/18. Endo following TFTs q6-12 months. Assessment & Plan (07/09/2022 9:50 AM EDT): Has upcoming endo appt. Assessment & Plan (07/18/2021 9:00 AM EDT): Mom to call this month for an endo appt. Assessment & Plan (05/16/2021 3:42 PM EDT): Has endo appt in July. Assessment & Plan (03/04/2020 11:04 AM EDT): No meds, doing well, followed by endo Encounter for counseling for care management of patient with chronic conditions and complex health needs using nurse-based model 11/21/2014 Type 1 diabetes mellitus 11/14/2014 Overview (07/24/2022): Well-controlled. Diagnosed 11/18 with JODM. Presented with polydypsia, polyphagia, polyuria, and some weight loss. Glu was 680 and HgBA1C > 14%. Radha mast endo managing her diabetes, visits q6mo. Is now on an Omnipod insulin pump and doing really well with her sugars and HgbA1C. HgBA1C 03/20=7.2, 10/21=7.4, 05/21=7.6, 07/22=7, 11/23=7.4, Last endo visit 07/17/22, most recent hgb a1c = 7. doing well, f/u 5mo. Need annual blood screenings (endo arranges). Annual eye exams, last 04/02/21 ([facility], ), f/u 1 year. Assessment & Plan (07/09/2022 9:31 AM EDT): Has endo appt this month. She's due for an eye exam, mom aware. Assessment & Plan (07/18/2021 8:59 AM EDT): Mom to call this month to schedule endo appt. Assessment & Plan (05/16/2021 3:41 PM EDT): Doing well (well-controlled). Had eye exam recently. Next endo is July. Assessment & Plan (01/23/2021 2:59 PM EDT): We discussed the Covid vaccine, for which she is eligible and I encouraged them to really think about getting it for her to protect her. Assessment & Plan (03/04/2020 11:03 AM EDT): Has endo appt next week, just had labs, mom reports all normal. Will arrange eye exam (delayed due to pandemic). Assessment & Plan (12/08/2019 3:59 PM EST): Recommended PPSV23 today, mom to think about it and plan to do it at well visit. Assessment & Plan (10/20/2018 11:57 AM EST): Mom to make eye exam PARVIZ (she's aware). I reviewed her thyroid questions - thyroid ultrasound was nl 09/28/18, and TFTs were nl in September, mild elevation of ab, but endo will follow (per note, might be developing thyroid dz, but none currently). 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 No response to good sleep hygiene routines or melatonin 5mg or 10 mg dose. Clonidine started 03/16. Good response with dose titrated up to 0.2 mg qhs. 09/18. Increased to 0.3mg qhs 07/22. Assessment & Plan (07/09/2022 9:32 AM EDT): Doing well on clonidine 0.3mg. Will continue. Assessment & Plan (01/22/2022 9:08 AM EDT): Doing well on clonidine 0.3mg. Will continue. Assessment & Plan (03/04/2020 11:04 AM EDT): Clonidine 0.3mg is helping, no issues now. Assessment & Plan (12/08/2019 3:58 PM EST): Using clonidine, still having issues. Will re-try melatonin at home. Assessment & Plan (07/31/2019 4:22 PM EDT): Will increase clonidine to 0.3mg qhs and monitor BP. Assessment & Plan (01/26/2019 4:05 PM EDT): Discussed at length, will work on better sleep hygiene, goal of asleep by 9pm, no screens after 7pm. Anxiety disorder 07/09/2011 Overview (01/26/2019): Was in counselling for a length of time with Ileana Grover with good coping strategies learned. When he retired 2014 she was discharged from counselling and cont to do well on fluoxetine daily and not in counselling. Is on fluoxetine 10 mg qd with good effect (started fluoxetine at ~8-9yo, had been on 20mg for a while but had weaned down to 10mg at 11-12yo). Increased fluoxetine to 20mg and then 30mg. 01/20. Assessment & Plan (06/08/2023 5:17 PM EDT): Doing well on fluoxetine 30mg. Will continue, Rx not needed today. F/u ~4 months with GAD7, until seen by an adult PCP (mom working on appt). Assessment & Plan (02/02/2023 3:23 PM EDT): Doing well on fluoxetine 30mg. Will continue, Rx not needed today. F/u ~4 months with GAD7. Assessment & Plan (10/15/2022 5:40 PM EST): Doing well on fluoxetine 30mg. Will continue, Rx not needed today. F/u ~4 months with GAD7. Assessment & Plan (07/09/2022 9:50 AM EDT): Doing well on fluoxetine 30mg. Will continue, Rx not needed today. F/u ~3 months. Assessment & Plan (04/30/2022 1:18 PM EDT): Doing well on fluoxetine 30mg. Will continue, Rx done today with two refills. F/u at well visit in ~2 months. Assessment & Plan (01/22/2022 9:07 AM EDT): Doing well on fluoxetine 30mg. Will continue, doesn't need Rx today, will call when she needs it. Assessment & Plan (10/23/2021 5:34 PM EST): Doing well on fluoxetine. GAD7 stable. Continue fluoxetine 30mg. They will call when they need a Rx (last Rx 09/15/21 with 3 refills). F/u 3 months for med check with GAD7 (virtual or in person). Assessment & Plan (07/18/2021 9:09 AM EDT): Doing well on fluoxetine. GAD7 slightly higher, but Juliet and mom actually say she's been doing well- calmer. Continue fluoxetine 30mg. They will call when they need a Rx (last Rx 05/19/21 with 3 refills). F/u 3 months for med check with GAD7 (virtual or in person). Assessment & Plan (05/16/2021 3:42 PM EDT): Doing well on fluoxetine, continue at 30mg. Assessment & Plan (03/31/2021 5:22 PM EDT): Doing well on fluoxetine 30mg, so will continue this dose. Does not need new Rx today. F/u 3 months with GAD7, sooner if needed. Assessment & Plan (01/23/2021 2:58 PM EDT): F/u??in??2??months,??GAD7??again at that visit. Assessment & Plan (12/26/2020 4:12 PM EDT): Doing well on the fluoxetine 30mg qAM, no SEs, no complaints, will continue. GAD7 score remains low. Does not need new Rx today. F/u in 3 months, can be virtual, GAD7 again at that visit. Assessment & Plan (09/24/2020 12:12 PM EST): Doing well on the fluoxetine 30mg qAM, no SEs, no complaints, will continue. Does not need new Rx today. F/u in 3 months, can be virtual, GAD7 again at that visit. Assessment & Plan (06/21/2020 12:01 PM EDT): Doing well on the fluoxetine??30mg qAM, no SEs, no complaints, will continue.?? Does not need new Rx today. F/u??in??3??months, will plan on that visit being virtual, GAD7??at that visit. Assessment & Plan (04/29/2020 12:11 PM EDT): Doing well on the fluoxetine??30mg qAM, no SEs, no complaints, will continue.?? Does not need new Rx today. F/u??in 2 months, will plan on that visit being virtual, GAD7??at that visit. Assessment & Plan (03/04/2020 11:26 AM EDT): Doing well on the fluoxetine 30mg qAM, no SEs, no complaints, will continue. Does not need new Rx today. F/u in 2 months, GAD7 at that visit. Assessment & Plan (12/08/2019 4:07 PM EST): Doing well on the fluoxetine 30mg qAM, no SEs, no complaints, will continue. New Rx done today with 3 refills. F/u in 4months, GAD7 at that visit. Assessment & Plan (07/31/2019 4:28 PM EDT): Doing well on the fluoxetine, no SEs, no complaints, will continue. I discussed with mom doing a 3mo supply next time (I am happy to do this). Med check in 4months, SCAREDs and GAD7 sent to mom electronically to be filled out prior to the next visit. Assessment & Plan (06/02/2019 4:58 PM EDT): Doing great on fluoxetine 30mg, so will continue at this dose. She will call when she needs a new Rx (will write for 90 day course). I plan to see her q3 mos for this. Assessment & Plan (04/07/2019 10:11 AM EDT): New Rx done today for the 30mg fluoxetine. F/u in May already scheduled. Assessment & Plan (02/24/2019 11:33 AM EDT): Doing great on fluoxetine 30mg, so will continue at this dose. Will write Rx for 90 days, and f/u in 3 months with SCAREDs (parent and child)- will give at this visit and have them bring them back at the f/u in 3 months. Assessment & Plan (01/26/2019 4:06 PM EDT): Will increase fluoxetine to 30mg, f/u in 1 month with parent and teacher SCAREDs, will send to mom electronically if she signs up for MyChart. Assessment & Plan (10/20/2018 11:37 AM EST): Improvement on increased dose of 20mg (parent SCARED improved, child slightly worse, but subjectively they feel like it's better). Discussed staying at same dose or increasing to 30mg today- patient wants to stay at same dose and wait a few months, then reassess. F/u 3 months with SCAREDs to see if they want to stay at same dose or increased at that time. Assessment & Plan (08/12/2018 4:31 PM EST): Still picking and peeling her fingers. Hasn't had panic attacks since she was young. Patient is at a very low dose of the fluoxetine, and I wonder if it is even doing anything. I discussed at length with parents and Juliet in terms of if they want to continue at a low dose, increase the dose to optimize effectiveness, or wean off. Given SCARED scores (on fluoxetine) - total scores were elevated though they did not quite meet diagnosis of anxiety d/o, scores were positive for certain subtypes such as social anxiety and panic d/o (child) and LUANA (parent). Therefore, will increase dose of fluoxetine to 20mg qAM and see if we can get more effect. Unfortunately, we don't have baseline SCARED forms to compare the current forms with. F/u 1 month with SCARED forms to compare to ones done today. ADD (attention deficit disorder) 04/24/2010 Overview (01/22/2022): On adderall xr 20 mg qam since she was ~9yo with very good effect. Some appetite suppression. Accomodations in place. Has an IEP. 09/18. Parent and 4 teacher [facility] [employer] fall 2016 all excellent - no signif ADD/ADHD sx at all and performance is average and even above average in Eng. Changed to Concerta given concern for tolerance to increased dose of Adderall 02/18. Doing great on Concerta 36mg qAM. 07/22 Concerta increased to 54mg 12/22. 01/23- changed Concerta back to Adderall due to appetite suppression on Concerta. Assessment & Plan (06/08/2023 5:17 PM EDT): Doing well on Adderall XR 25mg qam, continue with this dose. Rx done today. F/u 4 months, until seen by an adult PCP (mom working on appt). Assessment & Plan (02/02/2023 3:23 PM EDT): Doing well on Adderall XR 25mg qam, continue with this dose. Rx done today. Will perform the Adult ADHD screen now at [facility] checks to follow these symptoms. Assessment & Plan (10/15/2022 5:40 PM EST): Juliet is dong really well on Adderall XR 25mg, and is happy with this dose. Rx not needed today. F/u ~4 months. Assessment & Plan (07/09/2022 9:50 AM EDT): Juliet is dong really well on Adderall XR 25mg, and is happy with this dose. Rx done today. F/u ~3 months. Assessment & Plan (04/30/2022 1:17 PM EDT): Juliet is dong really well on Adderall XR 25mg, and is happy with this dose. Rx done today. F/u at well visit in ~2 months. Assessment & Plan (03/09/2022 5:15 PM EDT): With shared decision making, we increased her Adderall XR to 25mg (no SEs and having some effect, but not enough). I would like to see her back in about a month, though if mom reports sooner that it's still not having enough effect but no SEs, I am happy to increase it to 30mg prior to next visit. Next visit can be virtual or in person. Assessment & Plan (01/22/2022 9:07 AM EDT): With shared decision making, we changed her Concerta back to Adderall due to appetite suppression on Concerta. Will start with Adderall XR 10mg given it's been 3-4 years since she was on Adderall and had developed a tolerance. Mom to send me a message in a few days and let me know how this dose is in terms of effectiveness as well as side effects. I am happy to increase prior to next visit, which should be in 4-6 weeks (in person to check vitals and weight). Assessment & Plan (10/23/2021 5:33 PM EST): Doing well on Concerta 54mg- good effect with minimal SEs (some appetite depression with some weight loss). Will start Vadito Instant Breakfast to help minimize further weight loss, Continue to follow weights. Continue Concerta 54mg, Rx done today. F/u 3 months for med check (virtual or in person)- mom to let me know her weight from home. Assessment & Plan (07/18/2021 9:11 AM EDT): Doing well on Concerta 54mg- good effect with minimal SEs (some appetite depression, but weight has stabilized). No further seizures on Keppra and now thought unlikely cause of seizures. Continue to follow weights. Continue Concerta 54mg, mom to call when they need a new Rx (later this month). F/u 3 months for med check (virtual or in person)- mom to let me know her weight from home. Assessment & Plan (05/16/2021 3:41 PM EDT): No concerns with Concerta, will continue Concerta 54mg. Assessment & Plan (03/31/2021 5:21 PM EDT): Doing well without further seizures, so unlikely that the Concerta contributed to her seizure. Will continue current dose of 54mg, doesn't need new Rx today. I am concerned about appetite at lunch and weight loss. Will continue to follow this and if persists, will need to consider decrease in dose versus change in stimulant versus adding cyproheptadine. F/u 3 months. Assessment & Plan (01/23/2021 2:57 PM EDT): I am concerned about seizure soon after increasing her dose of Concerta, and I discussed this with Juliet and mom, but they are happy with the dose and don't think it's related, so would like to continue the current dose. I agreed, but do want them to speak to the neurologist about this. Rx done today for Concerta 54mg. F/u 2 months. Assessment & Plan (12/26/2020 4:08 PM EDT): Appears to have developed some tolerance (increase in impulsivity), so we decided to increase her dose of Concerta to 54mg qAM. F/u 1 month given change in dose. Assessment & Plan (09/24/2020 12:12 PM EST): Doing well, no reported SEs. I briefly discussed the idea of trialing off at some point, Juliet not currently open to this. Will continue Concerta 36mg qAM- does not need new Rx today. F/u 3 months (VV okay). Assessment & Plan (06/21/2020 12:00 PM EDT): Doing well,??no reported??SEs??(did have issues with??sleep,??better with clonidine). Will continue Concerta 36mg qAM-??does not need new Rx today. F/u??3 months (VV okay). May consider discussing trial off at some point. Assessment & Plan (04/29/2020 12:12 PM EDT): Doing well, no reported SEs (did have issues with sleep, better with clonidine). Will continue Concerta 36mg qAM-??does not need new Rx today. F/u q2 months with parent Vanderbilts??only as patient will be out of high school. Will likely be virtual, so may not be able to do Cie Gamests. Assessment & Plan (03/04/2020 11:27 AM EDT): Doing great, mom and patient very pleased, no current SE (did have issues with sleep, better with clonidine). Will continue Concerta 36mg qAM- does not need new Rx today. F/u q4 months with parent Vanderbilts only as patient will be out of high school. Assessment & Plan (12/08/2019 4:09 PM EST): Doing great, mom and patient very pleased, only SE is sleep, which started well before this med was started. Will continue Concerta 36mg qAM- eRx done today. F/u 4months with parent Vanderbilts only as patient will be out of high school. Assessment & Plan (07/31/2019 4:32 PM EDT): Doing great, mom and patient very pleased. Will continue Concerta 36mg qAM. F/u 4months with parent and teacher Vanderbilts (parent sent through [employer], mom aware to print off teacher ones and have them filled out for this appt). eRx done today. Assessment & Plan (06/02/2019 4:53 PM EDT): Continue Concerta 36mg qAM. To f/u in 1-2 months with parent and teacher Vanderbilts. Assessment & Plan (04/07/2019 10:12 AM EDT): Will increase Concerta 36mg qAM, f/u at appt at the end of May. Can call sooner if mom thinks she needs a higher dose (can go to 54mg). Mom aware to call with any SEs. Assessment & Plan (02/24/2019 12:06 PM EDT): She appears to be developing a tolerance given how long she has been on Adderall, so we discussed changing her to Concerta and seeing her back in a month. Will start Concerta 18mg qAM (given she is methylphenidate-naive). F/u 4-6 weeks with parent and teacher Vanderbilts. Assessment & Plan (01/26/2019 4:04 PM EDT): Seems to have developed a tolerance, so will increase her Adderall XR to 25mg qAM. F/u in 1 month with parent and teacher Vanderbilts. Assessment & Plan (08/12/2018 4:32 PM EST): Juliet is doing wonderfully and I am very happy with what you and the teachers report through the Ralph forms! We will continue to do the teacher Vanderbilts once a year, and parent one every time you come in for a medication check. Juliet is doing very well on her routine of Adderall XR 20mg in the mornings with no side effects and good benefits so we will continue this. Call when you need your next refill. Juliet's check ups are in January of each year but we should continue her medication rechecks for ADHD every 6 months. Call with any concerns. Assessment & Plan (08/12/2017 5:46 PM EST): You are doing really well on your daily adderall xr 20 mg with no side effects and a good effect. School performance is good. Parent Ralph shows low scores and good performance. No teacher Vanderbilts as teachers are on partial strike with work to rule . You also have your IEP and accommodations at school which are helping. We will continue this dose and as you are so stable on this med with no side effects your med checks will continue every 6 months. Full check up with next med recheck. PDD (pervasive developmental disorder) 0 Overview (03/31/2021): [place] to have Asperger's. Was in counselling and supports in school (IEP and accomodations) and is doing well. 12/17. 12/20/20- [facility] neuropsych eval (Dr. Garrido).- executive control limitation is c/w diagnosis of ASD and ADHD. Assessment & Plan (07/09/2022 9:34 AM EDT): Likely not going back to school. Going to find a part-time job. Assessment & Plan (01/23/2021 3:02 PM EDT): Doing better overall (especially regarding relationship with dad). I reviewed the neuropsych eval for this visit- mom aware of next steps, including finding a therapist, an executive function cheerleading coach, and get her an updated ASD eval. Mom will contact our [facility] [place], Mirella Shaffer, regarding the latter two, and I will place referrals as needed. Assessment & Plan (12/26/2020 4:10 PM EDT): Awaiting neuropsych eval and then family to figure out next steps for Age of Majority. We did discuss dynamics at home, especially with Juliet and dad and how psychotherapy could be really helpful. Mom also planning to find Juliet a therapist once the neuropsych eval is complete. Allergic rhinitis 02/17/2010 Overview (03/04/2020): Sees Dr. Sierra and skin tested positive for multiple environmental allergens. Immune testing done. 12/16. Was on daily singulair and uses claritin prn seasonal allergies. Only using Claritin prn. 01/20. Seems to be growing out of these 02/20 Assessment & Plan (03/04/2020 11:05 AM EDT): Seems to be growing out of these, not needing any meds. Resolved Problems Problem Noted Date Diagnosed Date Resolved Date Other irritable bowel syndrome 01/20/2015 03/04/2020 Overview (08/12/2017): Evaluated by Peds GI/ for abdominal pain and persistent diarrhea. Had positive Celiac blood screen but upper endoscopy was completely normal. Diag with IBS and trial of bentyl recommended. 01/16. Mild intermittent asthma 02/17/201003/2022 Overview (03/04/2020): Used to see Dr. Carlton. Used to be on Advair and Singulair, off all preventatives by 2017 and doing well. Albuterol prn only, last use was ~2018, just needs with cough. Assessment & Plan (07/09/2022 9:32 AM EDT): Seems to have outgrown, hasn't used albuterol in years. Assessment & Plan (03/04/2020 10:57 AM EDT): No need for any scripts, seems to be outgrowing her asthma, will continue to follow. Assessment & Plan (01/26/2019 4:08 PM EDT): ACT = 27 today. Continue albuterol prn. Immunizations Immunization Administration Dates Next Due COVID-19 Pfizer, bivalent, 12+ years 07/09/2022 DTaP 5 07/14/2006, 4,2002,2001,2002 Hep A, ped/adol 12/05/2015,11/21/2014 Hep B, ped/adol 2002,2002,2002 Hib (PRP-T) 09/03/2003, 3,2002,2001 IPV 07/04/2007, 3,2002,2001 Influenza, injectable, trivalent 008,07/14/2006,07/08/2005,2003 MMR 05/09/2003 MMRV 07/04/2007 Meningococcal B Trumenba 07/31/2019,01/26/2019 Meningococcal Conj (Menactra) MCV4P 08/12/2018,0 11/21/2014 Pneumococcal Conjugate 09/03/2003,2002,2002,2001 Pneumococcal Polysaccharide 03/04/2020 Tdap 11/02/2013 Varicella 05/09/2003 Family History Medical History Relation Name Comments No Known Problems Father adam ADD / ADHD Father's Sister No Known Problems Mother sakina No Known Problems Sister 1 jinny Allergic rhinitis Sister 2 [facility] Asthma Sister 2 [facility] Relation Name Status Comments Father adam Alive Father: Alive a nd well Father's Sister Mother sakina Alive Mother: Alive a nd well Other Family history of ADD/ADHD, Family history of Asthma Sister 1 jinny Alive Sister: Alive a nd well, Alive and well Sister 2 [facility] Alive Sister: Alive a nd well, Alive and well Social History Tobacco Use Types Packs/Day Years Used Date Smoking Tobacco: Never Smokeless Tobacco: Never Tobacco Cessation:Counseling Given: Yes Alcohol Use Standard Drinks/Week Comments Never 0 (1 standard drink = 0.6 oz pur e alcohol) Hunger/Food Answer Date Recorded In the last 12 months, did y ou or your family ever eat less than you felt you should because there wasn't enough money for food? No 07/08/2022 Stable Housing Answer Date Recorded Are you worried that in the next 2 months you may not have stable housing? No 07/08/2022 Transportation Concerns Answer Date Rec orded In the last 12 months, have you or your family ever had to go without healthcare because you didn't have a way to get there? No 07/08/2022 Hazards in Home Answer Date Recorded Think about the place you li ve. Do you have problems with any of the following? Pests (mice or roaches), mold, no/not working smoke detectors, water leaks, no window guards. No 2021 Financing Utilities Answer Date Recorde d In the last 12 months, has t he electric, gas, oil, or water company threatened to shut off your services in your home? No 07/08/2022 Safety at Home Answer Date Recorded Are you or your family worried about feeling saf e in your home? No 07/08/2022 Outside Support Answer Date Recorded Do you feel that you need mo re support from other people or programs to help you care for yourself or your family? No 07/08/2022 Understanding Health Concerns Answer Da te Recorded Do you need help understandi ng your or your child's healthcare needs (diagnosis, medications, plan, etc.)? No 07/08/2022 Financing Health Concerns Answer Date R ecorded In the last 12 months, was t here a time when your child needed to see a doctor or get medications or supplies but could not because of cost? No 07/08/2022 Missing School or Work Answer Date Jame rded Did you or your child miss s chool or work because of a health problem that could have been avoided? No 07/08/2022 Comments No Sex and Gender Information Value Date Recorded Sex Assigned at Female 03/04/2020 11:10 AM EDT Legal Sex Female 4:56 PM EDT Gender Identity Female 03/04/2020 11:10 AM EDT Sexual Orientation Bisexual 03/04/2020 11 :10 AM EDT Last Filed Vital Signs Vital Sign Reading Time Taken Comments Blood Pressure 107/74 06/08/2023 4:34 PM EDT Pulse 106 06/08/2023 4:34 PM EDT Temperature 37 ??C (98.6 ??F) 06/08/2023 4:34 PM EDT Respiratory Rate - - Oxygen Saturation - - Inhaled Oxygen Concentration - - Weight 47.5 kg (104 lb 12.8 oz) 06/08/2023 4:34 PM EDT Height 160 cm (5' 3 ) 10/15/2022 4:59 PM EST Body Mass Index 18.56 10/15/2022 4:59 PM EST Plan of Treatment Health Maintenance Due Date Last Done Comments HPV Vaccines (1 - 3-dose series) 2017 DTaP,Tdap,and Td Vaccines (7 - Td or Tdap) 11/02/2023 11/02/2013, 07/14/2006, 11/09/2003, Additional history exists Influenza Vaccines (#1) 2024 09/03/20 08, 07/14/2006, 07/08/2005, Additional history exists COVID-19 Vaccine (2023-2 5 season) 2024 07/09/2022, 11/29/2021, 11/08/2021 Hepatitis B Vaccines Completed 2002, 2002, 2002 HIB Vaccines Completed 09/03/2003, 11/04, 2002, Additional history exists IPV Vaccines Completed 07/04/2007, 02/01, 2002, Additional history exists MMR Vaccines Completed 07/04/2007, 05/09/2003 Varicella Vaccines Completed 07/04/2007, 05/09/2003 Hepatitis A Vaccines Completed 12/05/2015, 11/21/19 15 Meningococcal Vaccine Completed 08/12/2018, 015 Men B Vaccine Completed 07/31/2019, 01/26/2019 Pneumococcal Vaccine Completed 03/04/2020, 09/03/2003, 2002, Additional history exists Procedures * Due to [place] Swap[employer] law, this organization might not be sharing sensitive test results. Procedure Name Priority Date/Time Associated Diagnosis Comments CHLAMYDIA AND GONORRHEA, AMPLIFIED Routine 07/09/2022 10:26 AM EDT Routine screening for STI (sexually transmitted infection) from Last 3 Months or Most Recently Relevant to Health Maintenance Results * Due to [place] [employer] law, this organization might not be sharing sensitive test results. * Chlamydia and Gonorrhea, Amplified (07/09/2022 10:26 AM EDT) Chlamydia Trachomatis, DNA Probe NEGATIVE (NEG) [facility] Comment: No Chlamydia Trachomatis RNA detected in this patient's sample ? (REFERENCE RANGE/NORMAL VALUE: NOT DETECTED) ? Note: This test uses uniforms sales representative- mediated amplification method to detect rRNA from C. Trachomatis URINE GC AMP PROBE NEGATIVE (NEG) [facility] Comment: No Neisseria Gonorrhoeae RNA detected in this patient's sample ? (REFERENCE RANGE/NORMAL VALUE: NOT DETECTED) ? NOTE: This test uses uniforms sales representative-mediated amplification method to detect rRNA from N.Gonorrhoeae. A negative result does not preclude infection. In the case of a negative urine result, testing of an endocervical(female) or urethral (male) specimen is recommended if there is high clinical suspicion of infection. Due to very high sensitivity of Nucleic Acid Amplification Test, false positive results may occur. Therefore, specimen handling is extremely important. In patients in whom the disease is unlikely, additional sample for testing should be considered after an initial positive result. The performance characteristics of this test have not been evaluated in children. The Aptima Combo2 assay is not intended for the evaluation of suspected sexual abuse or for other medico-legal indications. The ordering provider should assess if the patient had consensual sex without risk of sexual abuse. Consult the [facility] if needed. Contact phone number . Therapeutic failure or success cannot be determined with the Aptima Combo2 assay since nucleic acid may persist following appropriate antimicrobial therapy. The Centers for Disease Control and Prevention (CDC) recommends confirmatory retesting using culture or a different nucleic acid amplification test when positive results occur, if indicated. Testing performed or reported by [facility], a Service of [facility], [address] [place] [id number] Juan Shah MD, Traffic Technician [facility]# [id number] Urine (Urine) 07/09/2022 10: 26 AM EDT 07/09/2022 10:28 PM EDT us Peri Ayala MD LAB MICROBIOLOGY - GENERAL OR DERABLES Final Result [facility] from Last 3 Months or Most Recently Relevant to Health Maintenance
--- OUTSIDE RECORDS SUMMARY | 2025-01-17 17:34 | XMS_ITS | Encounter Summary ---
Author Organization [facility] Address [address] [place] [id number] Phone Care Team Providers Care Adzing And Boring Machine Operator Name Role Phone Peri Ayala MD Primary Care Provider [phone] Encounter Details Date Type Department Care Team (Late st Contact Info) Description 01/24/2010 Documentation [facility] [place] Family Medicine [address] [place] [address] Family Medicine, Physician [address] [place], [place] [id number] Social History Tobacco Use Types Packs/Day Years [...] on filedocumented in this encounter Care Teams Adzing And Boring Machine Operator Relationship Specialty Start Date End Date Peri Ayala MD [address] [place] [address] PCP - General Pediatrics 04/03/18 10/21/23 documented as of this encounter
--- OUTSIDE RECORDS SUMMARY | 2025-01-17 17:34 | XMS_ITS | Encounter Summary ---
Author Organization [facility] Address [address] [place] [address] Phone Care Team Providers Care Senior Dentist Name Role Phone Peri Ayala MD Primary Care Provider [phone] Encounter Details Date Type Department Care Team (Late st Contact Info) Description 12/04/2014 Documentation [facility] [place] [place] Family Medicine [address] [place], [place] [phone] Family Medicine, Physician [address] [place], [place] [phone] Social History Tobacco Use Types Packs/Day Years [...] on filedocumented in this encounter Care Teams Senior Dentist Relationship Specialty Start Date End Date Peri Ayala MD [address] [place] [address] PCP - General Pediatrics 04/03/18 10/21/23 documented as of this encounter
== END 2025-01-17 15:16 | disposition home or self-care (01) ==
LOC: HO.HMCFM 14:52
PROVIDERS: PCP Nurse Practitioner Family; Visit Provider Nurse Practitioner Family
DX: G40.909 Epilepsy, unspecified, not intractable, without status epilepticus (principal); F33.2 Major depressive disorder, recurrent severe without psychotic features; E10.65 Type 1 diabetes mellitus with hyperglycemia; F90.2 Attention-deficit hyperactivity disorder, combined type; F41.1 Generalized anxiety disorder; F51.05 Insomnia due to other mental disorder; F99 Mental disorder, not otherwise specified; J30.2 Other seasonal allergic rhinitis

== ENCOUNTER → 2025-01-17 14:51 | Outpatient (BNVA) | payer OTHER, SELFPAY | PROVIDERS: PCP Nurse Practitioner Family; Visit Provider Nurse Practitioner Family | DX: F33.2 Major depressive disorder, recurrent severe without psychotic features (principal); F90.2 Attention-deficit hyperactivity disorder, combined type; F41.1 Generalized anxiety disorder; F51.05 Insomnia due to other mental disorder; F99 Mental disorder, not otherwise specified; G40.909 Epilepsy, unspecified, not intractable, without status epilepticus; E10.65 Type 1 diabetes mellitus with hyperglycemia; J30.2 Other seasonal allergic rhinitis; Z79.899 Other long term (current) drug therapy | CPT/HCPCS: 96127 ==

== ENCOUNTER 2025-04-16 14:47 | Outpatient (AMB) | payer OTHER, SELFPAY ==
--- NOTE | 2025-04-16 15:04 | A.OFFPC_ITS ---
Vital Signs 04/16/25 15:12 Height 5 ft 3 in Weight 100 lb 6 oz BMI 17.8 BP 108/66 Blood Pressure Location Rt brachial Position Sitting Respiration 12 Pulse 99 Pulse Source Pulse Oximeter Temp 97.0 F Temp Source Oral Pulse Oximetry (%) 99 Oxygen Delivery Method Room Air Intake Visit Reasons: April 17 min med chk - see comments Intake Note: Follow up to review meds. 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 Internship Required: No Allergies Influenza Virus Vaccines Allergy (Intermediate, Verified 04/16/25 15:19) Chills Medication List - Last Reconciled 04/16/25 by LANG OsegueraP- blood sugar diagnostic (FreeStyle Lite Strips) As directed clonidine HCl 0.3 mg PO DAILY dextroamphetamine-amphetamine 25 mg ER (Adderall XR) 25 mg PO DAILY fluoxetine 30 mg (3 x 10 mg) PO DAILY glucagon 3 mg/actuation (Baqsimi) mg intranasal insulin glargine (Lantus U-100 Insulin) 10 units subcut QPM insulin lispro (Humalog U-100 Insulin) subcut ketone blood test test blood sugar 4 times a day levetiracetam 750 mg PO BID Tobacco use date assessed: 04/16/25 Dental Screening Dental Screen Date: 04/16/25 Did you have a dental visit in the last 12 months?: Yes Did you have a dental problem in the last 6 months where you did not have access to dental care?: No Was dental information given to patient?: Patient has dentist HPI HPI Comments History of Present Illness Details 24-year-old female with ADHD, MDD, type 1 diabetes, Asperger syndrome, seizure disorder , generalized anxiety disorder, insomnia, seasonal allergies, mild intermittent asthma, acne [facility] [address] [place] [address] Will be transitioning from peds to adult endo Optho DME 10/[address] Oliver Voss, last visit 10/2023 Counselor - active in the past Health Maintenance: diabetic eye exam 02/22/2024 at [facility], negative for retinopathy bilat. Pap - never had one. Declined at this time. History of Present Illness - The patient is a 24-year-old female pr esenting with a routine ADHD medication review. - ADHD under control with Adderall XR. - Anxiety and depression managed with fl uoxetine. - Seizure disorder controlled with Keppr vilma. No sz since 2021. Managed by Neuro - Type 1 diabetes monitored by endocrino logy. - A1c currently 7.6, slight increase fro m 7.2. unable to submit microalbumin. - Insomnia managed with clonidine. - Stable overall health and emotional st ate. - Will be starting a job at [employer], looking forward to this. - Aspergers. Bday coming up plans to romo ng out and drink w/ friends. -Patient reports no feelings of being down, depressed, hopeless, or overly anxious. Denies sI/HI. in counseling q 3 weeks. Things @ home are good. - Appetite good. Wt down a little. - Asthma well controlled. Review of Systems - Neurologic: Denies seizures recently. - Endocrine: Reports occasional high blo od sugars, denies lows. - Psychiatric: Denies feeling down or ho peless, no acute anxiety. - Sleep: Reports good sleep with clonidi ne. - General: Denies significant weight lizeth nges. - Hematologic: Denies any hospital visit s related to diabetes. Physical Exam General: Well developed, well nourished, in no acute distress. Appears stated age. Head: Normocephalic, atraumatic. Eyes: Pupils are equal, round and reactive to light and accommodation. Conjunctivae are clear. Vision grossly normal. Lungs: Clear to auscultation bilaterally. No rales, rhonchi or wheeze noted. Good air flow in all [place]. Heart: Mildly tachycardic (baseline) Regular rhythm. No murmurs, click, rubs or gallops are noted. Pulses: Peripheral pulses are equal and palpable bilaterally. Extremities: No clubbing, cyanosis nor edema is noted. Psych: Mood and affect appropriate. Discussion Notes During the visit, I discussed the maintenance of ADHD with Adderall XR and confirmed the medication's current efficacy and need for a refill. We reviewed the management of her anxiety and depression with fluoxetine, and I advised on ensuring she does not run out of medication to avoid anxiety from loss of medication supply. I clarified her ongoing seizure management with Velma under neurology supervision and reassured stable management. Her diabetes management continues under endocrinology care, and her recent A1c suggests continued need for monitoring as part of routine care. Insomnia is managed effectively with clonidine. Other health aspects, such as her emotional well-being and lifestyle changes like starting a new job, were also discussed, ensuring a holistic view of her health. Follow-up for her physical is scheduled for June, and I ensured she understands the importance of consistent medication adherence and routine monitoring of her chronic conditions. Assessment and Plan 1. Attention Deficit Hyperactivity Disor bassam (ADHD) - Adderall XR 25 mg daily 2. Anxiety Disorder - Fluoxetine 30 mg daily, refill confirm ed. 3. Major Depressive Disorder - Continue fluoxetine for management. 4. Seizure Disorder - Follow neurology, Keppra 750 mg twice daily, refill sent per request . 5. Type 1 Diabetes Mellitus - Insulin via Omnipod and Lantus. - Managed by luis, due for Microalbumin. 6. Insomnia - Manage with clonidine 0.3 mg daily. 7. Asthma well controlled w/o meds. Patient Instructions - Continue taking Adderall XR, fluoxetin e, Keppra, insulin, and clonidine as prescribed. - Monitor blood sugar levels regularly. - Ensure enough medication supply; conta ct the office if issues arise. - Follow up with the die cast operator for diabetes management. - Attend scheduled physical in June . - Be safe and cautious with new job resp onsibilities. - Report any significant health changes or concerns. Consent Patient was informed and verbally consented to the use of an ambient scribe for clinic note documentation during this visit. Total time spent caring for the patient today was 30 minutes. This includes time spent before the visit reviewing the chart, time spent during the visit, and time spent after the visit on documentation, reviewing laboratory results, diagnostic imaging, medications, performing a medically necessary evaluation, counseling on diagnoses, care coordination, ordering appropriate tests, ordering appropriate medications, review of tests performed by other providers, reporting test results with the patient, communication with other healthcare providers. [facility] Medical History Attention deficit hyperactivity disorder Endogenous depression Type 1 diabetes mellitus Seizure disorder Asperger's syndrome Surgical History No pertinent past surgical history Family History Maternal Grandmother Depression Other Mental health disorder Social History Housing: House (with parent) Alcohol intake: never Patient Tobacco Use Status: Never used Tobacco e-Cigarette/Vaping Use: Never Used Second Hand Smoke Exposure: No service: No Current occupational status: unemployed and disabled Cognitive needs: No Hearing needs: No Vision needs: Yes (glasses) Questionnaire Thrive Questionnaire Date Thrive assessed: 01/17/25 I am a: Patient What is your living situation today?: I have a steady place to live Within the past 12 months, did the food you bought not last and you didn't have the money to get more?: Never true Within the past 12 months, did you worry whether your food would run out before you got money to buy more?: Never true Do you have trouble paying for medicines?: No Do you have trouble getting transportation to medical appointments?: No Do you have trouble paying your heating and electricity bill?: No Do you have trouble taking care of your child, family member or friend?: No Do you have trouble with day-to-day activities such as bathing, preparing meals, shopping, managing finances, etc.?: No Are you currently unemployed and looking for a job?: Yes Are you interested in more education?: No Please select the resources that you would like help with: None Currently or been in a relationship where the following occur: No concerns reported THRIVE Score: 0 LUANA-7 AMB Questionnaire LUANA-7 Date LUANA - 7 assessed: 01/17/25 Source: Developed by Drs. Riley Friedman, Dianne Arango, Gordy Roach and colleagues, with an educational rolando from [employer]. ACT Questionnaire In the past 4 weeks, how much of the time did your asthma keep you from getting as much done at work, school or at home?: None of the time During the past 4 weeks, how often have you had shortness of breath?: Not at all During the past 4 weeks, how often did your asthma symptoms wake you up at night or earlier than usual in the morning?: Not at all During the past 4 weeks, how often have you had to use your rescue inhaler or nebulizer medication?: Not at all How would you rate your asthma control during the past 4 weeks?: Completely controlled ACT Interpretation: Negative Score: 25 Physical exam (Primary Care) Vital Signs: Last Vital Signs Temp 97.0 F 04/16/25 15:12 Pulse 99 04/16/25 15:12 Resp 12 04/16/25 15:12 BP 108/66 04/16/25 15:12 Pulse Ox 99 04/16/25 15:12 Oxygen Delivery Method Room Air 04/16/25 15:12 BMI result Body Mass Index 17.8 Tobacco/Smoking Status: Tobacco use Status Tobacco use date assessed 04/16/25 04/16/25 15:08 Patient Tobacco Use Status Never used Tobacco 04/16/25 15:08 e-Cigarette/Vaping Use Never Used 04/16/25 15:08 Thrive Assessment: Date of Thrive Assessment Date Thrive assessed 01/17/25 04/16/25 15:08 Currently or been in a relationship where the following occur: No concerns reported Results AMB Hemoglobin A1c AMB Hemoglobin A1c 7.6 % Last Edit by Kayleen Matias MA on 04/16/25 15:24 Coding Level of Care Code Est Pt Level 4 (31483) Complex EM visit Add On G2211 Diagnoses Type 1 diabetes mellitus with hyperglycemia E10.65 Diabetes mellitus complication status: with hyperglycemia Attention deficit hyperactivity disorder (ADHD), combined type F90.2 Attention deficit-hyperactivity disorder type: combined inattentive- hyperactive 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 On Omnipod insulin pump up-to-date on diabetic eye exam. Code(s): E10.9 - Type 1 diabetes mellitus without complications Category: Medical Qualifiers: Diabetes mellitus complication status: with hyperglycemia Qualified Code(s): E10.65 - Type 1 diabetes mellitus with hyperglycemia (2) Attention deficit hyperactivity disorder: Comment: on Adderall XR 25 mg daily and clonidine 0.3 mg daily. Continue Code(s): F90.9 - Attention-deficit hyperactivity disorder, unspecified type Category: Medical Qualifiers: Attention deficit-hyperactivity disorder type: combined inattentive- hyperactive Qualified Code(s): F90.2 - Attention-deficit hyperactivity disorder, combined type (3) Endogenous depression: Comment: On fluoxetine 30 mg daily. Code(s): F33.2 - Major depressive disorder, recurrent severe without psychotic features Category: Medical (4) LUANA (generalized anxiety disorder): Code(s): F41.1 - Generalized anxiety disorder Category: Medical (5) Seizure disorder: Comment: Managed by Neurology. On Keppra. Two seizures in her lifetime. Last seizure A pril 2021 Code(s): G40.909 - Epilepsy, unspecified, not intractable, without status epilepticus Category: Medical (6) Asperger's syndrome: Code(s): F84.5 - Asperger's syndrome Category: Medical (7) Mild intermittent asthma in adult without complication: Code(s): J45.20 - Mild intermittent asthma, uncomplicated Category: Medical Plan . Orders: Orders AMB Hemoglobin A1c Today E10.65 - Type 1 diabetes mellitus with hyperglycemia Medications: New levetiracetam 750 mg PO BID 180 tabs 2RF Refilled fluoxetine 30 mg (3 x 10 mg) PO DAILY 90 tabs 3RF clonidine HCl 0.3 mg PO DAILY 90 tabs 0RF
[2025-04-16 15:12] VITALS: BP 108/66; PULSE 99; RESP 12; TEMP 36.1; O2SAT 99; BMI 17.8
--- OUTSIDE RECORDS SUMMARY | 2025-04-16 16:02 | XMS_ITS | Clinical Summary ---
Author Organization [facility] Address [address] [place] [address] Phone Care Team Providers Care Bulk Gas Specialist Name Role Phone Unavailable Primary Care Provider [...] Plan (10/23/2021 5:35 PM EST): Will add [place] Instant Breakfast once per day and mom [...] MRI. 01/22- nl 24hr EEG Followed by [facility] neuro since 08/19/20 (Amber Fitzgerald, [place])- Last [...] (endo arranges). Annual eye exams, last 04/02/21 ([facility], ), f/u 1 year. Assessment [...] Assessment & Plan (01/23/2021 2:58 PM EDT): F/u in 2 months, GAD7 again at that visit. Assessment & Plan (12/26/2020 [...] 12:01 PM EDT): Doing well on the fluoxetine 30mg qAM, no SEs, no complaints, will continue. Does not need new Rx today. F/u in 3 months, will plan on that visit being virtual, GAD7 at that visit. Assessment & Plan (04/29/2020 12:11 PM EDT): Doing well on the fluoxetine 30mg qAM, no SEs, no complaints, will continue. Does not need new Rx today. F/u in 2 months, will plan on that visit being virtual, GAD7 at that visit. Assessment & Plan (03/04/2020 11:26 [...] an IEP. 09/18. 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 Assessment & Plan (10/15/2022 5:40 PM EST): Juliet is hemalatha really well on Adderall XR 25mg, and is happy with this dose. Rx not needed today. F/u ~4 months. Assessment & Plan (07/09/2022 9:50 AM EDT): Juliet is hemalatha really well on Adderall XR 25mg, and is happy with this dose. Rx done today. F/u ~3 months. Assessment & Plan (04/30/2022 1:17 PM EDT): Juliet is hemalatha really well on Adderall XR 25mg, and [...] depression with some weight loss). Will start [place] Instant Breakfast to help minimize further weight [...] & Plan (06/21/2020 12:00 PM EDT): Doing well, no reported SEs (did have issues with sleep, better with clonidine). Will continue Concerta 36mg qAM- does not need new Rx today. F/u 3 months (VV okay). May consider discussing trial off at some point. Assessment & Plan (04/29/2020 12:12 PM EDT): Doing well, no reported SEs (did have issues with sleep, better with clonidine). Will continue Concerta 36mg qAM- does not need new Rx today. F/u q2 months with parent [facility] only as patient will be out of high school. Will likely be virtual, so may not be able to do [employer]. Assessment & Plan (03/04/2020 11:27 AM EDT): Doing great, mom and patient very pleased, no current SE (did have issues with sleep, better with clonidine). Will continue Concerta 36mg qAM- does not need new Rx today. F/u q4 months with parent [facility] only as patient will be out of high school. Assessment & Plan (12/08/2019 4:09 PM EST): Doing great, mom and patient very pleased, only SE is sleep, which started well before this med was started. Will continue Concerta 36mg qAM- eRx done today. F/u 4months with parent [facility] only as patient will be out of high school. Assessment & Plan (07/31/2019 4:32 PM EDT): Doing great, mom and patient very pleased. Will continue Concerta 36mg qAM. F/u 4months with parent and teacher [employer] (parent sent through [employer] mom aware to print off teacher ones [...] you and the teachers report through the [place] forms! We will continue to do the [...] PDD (pervasive developmental disorder) 0 Overview (03/31/2021): [place] to have Asperger's. Was in counselling and supports in school (IEP and accomodations) and is doing well. 12/17. 12/20/20- [facility] neuropsych eval (Dr. Garrido).- executive control [...] including finding a therapist, an executive function dramatic coach, and get her an updated ASD eval. Mom will contact our [facility] Mirella Shaffer, regarding the latter two, and [...] Sister 1 jinny Allergic rhinitis Sister 2 [facility] Asthma Sister 2 [facility] Relation Name Status Comments Father adam Alive Father: Alive a nd well Father's Sister Mother sakina Alive Mother: Alive a nd well Other Family history of ADD/ADHD, Family history of Asthma Sister 1 [place] Alive Sister: Alive a nd well, Alive and well Sister 2 [facility] Alive Sister: Alive a nd well, Alive [...] 106 06/08/2023 4:34 PM EDT Temperature 37 C (98.6 F) 06/08/2023 4:34 PM EDT Respiratory Rate - [...] 11/02/2023 11/02/2013, 07/14/2006, 11/09/2003, Additional history exists COVID-19 Vaccine (2023- 5 season) 2024 07/09/2022, 11/29/2021, 11/08/2021 Influenza Vaccines (#1) 2025 09/03/20 08, 07/14/2006, 07/08/2005, Additional history exists Hepatitis B Vaccines Completed 2002, 2002, 2002 [...] Additional history exists Procedures * Due to [place] [employer] law, this organization might not be sharing sensitive test results. Procedure Name Priority Date/Time Associated Diagnosis Comments CHLAMYDIA AND GONORRHEA, AMPLIFIED Routine 07/09/2022 10:26 AM EDT Routine screening for STI (sexually transmitted infection) from Last 3 Months or Most Recently Relevant to Health Maintenance Results * Due to [place] [employer] law, this organization might not be sharing sensitive test results. * Chlamydia and Gonorrhea, Amplified (07/09/2022 10:26 AM EDT) Chlamydia Trachomatis, DNA Probe NEGATIVE (NEG) [facility] Comment: No Chlamydia Trachomatis RNA detected in this patient's sample (REFERENCE RANGE/NORMAL VALUE: NOT DETECTED) Note: This test uses transcription manager- mediated amplification method to detect rRNA from C. Trachomatis URINE GC AMP PROBE NEGATIVE (NEG) [facility] Comment: No Neisseria Gonorrhoeae RNA detected in this patient's sample (REFERENCE RANGE/NORMAL VALUE: NOT DETECTED) NOTE: This test uses transcription manager-mediated amplification method to detect rRNA from N.Gonorrhoeae. [...] without risk of sexual abuse. Consult the [facility] if needed. Contact phone number . Therapeutic failure or success cannot be determined with the Aptima Combo2 assay since nucleic acid may persist following appropriate antimicrobial therapy. The Centers for Disease Control and Prevention (CDC) recommends confirmatory retesting using culture or a different nucleic acid amplification test when positive results occur, if indicated. Testing performed or reported by [facility], a Service of [facility], [facility] [place] [address] Juan Shah MD, Bale Opener [facility]# [id number] Urine (Urine) 07/09/2022 10: 26 AM EDT 07/09/2022 10:28 PM EDT us Peri Ayala MD LAB MICROBIOLOGY - GENERAL OR DERABLES Final Result [facility] from Last 3 Months or Most Recently Relevant to Health Maintenance
== END 2025-04-16 15:34 | disposition home or self-care (01) ==
LOC: HO.HMCFM 14:48
PROVIDERS: PCP Nurse Practitioner Family; Visit Provider Nurse Practitioner Family
DX: E10.65 Type 1 diabetes mellitus with hyperglycemia (principal); F33.2 Major depressive disorder, recurrent severe without psychotic features; G40.909 Epilepsy, unspecified, not intractable, without status epilepticus; F90.2 Attention-deficit hyperactivity disorder, combined type; F41.1 Generalized anxiety disorder; F84.5 Asperger's syndrome; J45.20 Mild intermittent asthma, uncomplicated

== ENCOUNTER → 2025-04-16 14:47 | Outpatient (BNVA) | payer OTHER, SELFPAY | PROVIDERS: PCP Nurse Practitioner Family; Visit Provider Nurse Practitioner Family | DX: E10.65 Type 1 diabetes mellitus with hyperglycemia (principal); F90.2 Attention-deficit hyperactivity disorder, combined type; F33.2 Major depressive disorder, recurrent severe without psychotic features; F41.1 Generalized anxiety disorder; G40.909 Epilepsy, unspecified, not intractable, without status epilepticus; F84.5 Asperger's syndrome; J45.20 Mild intermittent asthma, uncomplicated; Z79.899 Other long term (current) drug therapy | CPT/HCPCS: 83036; 96160 ==

== ENCOUNTER 2025-06-26 07:54 | Outpatient (REF) | payer OTHER, SELFPAY ==
[2025-06-26 13:46] LABS: Microalbum/Creatinine Ratio Ur 147.0 ug/mg cr (<30)
== END 2025-06-26 07:55 | disposition home or self-care (01) ==
LOC: HO.LAB 07:54
PROVIDERS: PCP Nurse Practitioner Family; Visit Provider Nurse Practitioner Family
DX: Z23 Encounter for immunization (principal); Z02.6 Encounter for examination for insurance purposes; Z00.00 Encounter for general adult medical examination without abnormal findings; E10.65 Type 1 diabetes mellitus with hyperglycemia; T26.52XA Corrosion of left eyelid and periocular area, initial encounter; Z92.29 Personal history of other drug therapy; Z79.4 Long term (current) use of insulin; Z79.899 Other long term (current) drug therapy; Z88.7 Allergy status to serum and vaccine; F33.2 Major depressive disorder, recurrent severe without psychotic features; F90.2 Attention-deficit hyperactivity disorder, combined type; F41.1 Generalized anxiety disorder; J30.2 Other seasonal allergic rhinitis; F84.5 Asperger's syndrome; G40.909 Epilepsy, unspecified, not intractable, without status epilepticus; J45.20 Mild intermittent asthma, uncomplicated; F51.05 Insomnia due to other mental disorder; F99 Mental disorder, not otherwise specified; L70.0 Acne vulgaris; Z53.20 Procedure and treatment not carried out because of patient's decision for unspecified reasons
CPT/HCPCS: 82043; 82570; 90471; 90715; 96127; 96160; 99212

== ENCOUNTER 2025-06-26 07:54 | Outpatient (AMB) | payer OTHER, SELFPAY ==
--- NOTE | 2025-06-26 07:58 | A.OFFPC_ITS ---
Vital Signs 06/26/25 08:08 Height 5 ft 3 in Weight 102 lb 6 oz BMI 18.1 BP 104/66 Blood Pressure Location Lt brachial Position Sitting Respiration 12 Pulse 120 H Pulse Source Pulse Oximeter Temp 97.2 F Temp Source Oral Pulse Oximetry (%) 97 Oxygen Delivery Method Room Air Intake Visit Reasons: end of Jun CPE Intake Note: CPE. House Designer Required: No Allergies Influenza Virus Vaccines Allergy (Intermediate, Verified 06/26/25 08:05) Chills Medication List - Last Reconciled 06/26/25 by Catherine Reese [facility]- blood sugar diagnostic (FreeStyle Lite Strips) As directed clonidine HCl 0.3 mg PO DAILY dextroamphetamine-amphetamine 25 mg ER (Adderall XR) 25 mg PO DAILY fluoxetine 30 mg (3 x 10 mg) PO DAILY glucagon 3 mg/actuation (Baqsimi) mg intranasal insulin glargine (Lantus U-100 Insulin) 10 units subcut QPM insulin lispro (Humalog U-100 Insulin) subcut ketone blood test test blood sugar 4 times a day levetiracetam 750 mg PO BID Tobacco use date assessed: 06/26/25 Dental Screening Dental Screen Date: 06/26/25 Did you have a dental visit in the last 12 months?: Yes Did you have a dental problem in the last 6 months where you did not have access to dental care?: No Was dental information given to patient?: Patient has dentist HPI HPI Comments History of Present Illness Details 25-year-old female with ADHD, MDD, type 1 diabetes, Asperger syndrome, seizure disorder , generalized anxiety disorder, insomnia, seasonal allergies, mild intermittent asthma, acne Social: working at [employer] [facility] [address] [place] [address] Will be getting Omnipod 5 Optho DME 10/[address] Oliver Voss, last visit 10/2023 Counselor - active Health Maintenance: diabetic eye exam 02/22/2024 at [facility], negative for retinopathy bilat. Pap - never had one. Declined at this time. Flu allergy/declined Tdap admin today Surgery: None Hospital: None Family hx: Dad alive and well PGM alive, CHF PGF small cell lung ca age 77 Mom: alive and well MGM: Iron def, MDD, LUANA, DM 2 MGF: estranged Sibling: sister age 20 [place], + estranged step sister age 29 (Bharat) Healthy Here today for complete physical exam. Regular periods, heavy in the beginning; get materials scientist. Cont to decline pap. Wears seat belt in the car Occasional alcohol Hangs out w/ friends; mall, movies. Looking forward to [employer]. Loves the 80s. She is active with her care team. Sees endocrinology regularly. Sees Neurology at least annually. No seizures. Maintained on Keppra. Up-to-date on her diabetic eye exam. Active with a counselor. She currently is on clonidine along with fluoxetine. She reports tolerance and compliance with this. Her ADHD is well controlled on the current dose of Adderall. Her weight is stable. Appetite is good, trying to eat more. Sleep is good. Reports normal elimination patterns. Wears a seatbelt in the car. Has no concern for any skin changes. Has routine follow up with a dentist. Breathing is good. Reviewed Pap smear screening. At this time she is not sexually active. Reports that she is a virgin. Denies any complaints. She does not feel comfortable with the speculum exam or referral at this time. Plan: At this time continue all medications without change Urine micro today Defer Pap at this time, she is not sexually active, has no risk factors. Encouraged self-breast examination. Cont care with care team. Tdap admin RTO 3 month for ADHD med check and R ear lavage, sooner PRN PFSH Medical History Attention deficit hyperactivity disorder Endogenous depression Type 1 diabetes mellitus Seizure disorder Asperger's syndrome Surgical History No pertinent past surgical history Family History Maternal Grandmother Depression Other Mental health disorder Social History Housing: House (with parent) Alcohol intake: never Patient Tobacco Use Status: Never used Tobacco e-Cigarette/Vaping Use: Never Used Second Hand Smoke Exposure: No service: No Current occupational status: unemployed and disabled Cognitive needs: No Hearing needs: No Vision needs: Yes (glasses) Questionnaire PHQ-9 Over the last 2 weeks, how often have you been bothered by any of the following problems? 1. Little interest or pleasure in doing things: not at all 2. Feeling down, depressed, or hopeless: not at all 3. Trouble falling or staying asleep, or sleeping too much: not at all 4. Feeling tired or having little energy: not at all 5. Poor appetite or overeating: not at all 6. Feeling bad about yourself - or that you are a failure or have let yourself or your family down: not at all 7. Trouble concentrating on things, such as reading the newspaper or watching television: not at all 8. Moving or speaking so slowly that other people could have noticed. Or the opposite - being so fidgety or restless that you have been moving around a lot more than usual: not at all 9. Thoughts that you would be better off or of hurting yourself in some way: not at all Total score: 0 Depression Screening Interpretation: Negative Depression Screening Done: Yes 34155 - PHQ-9 Billing: Yes Source: Developed by Drs. Riley Friedman, Dianne Arango, Gordy Roach and colleagues, with an educational rolando from [employer]. Thrive Questionnaire Date Thrive assessed: 06/26/25 I am a: Patient What is your living situation today?: I have a steady place to live Within the past 12 months, did the food you bought not last and you didn't have the money to get more?: Never true Within the past 12 months, did you worry whether your food would run out before you got money to buy more?: Never true Do you have trouble paying for medicines?: No Do you have trouble getting transportation to medical appointments?: No Do you have trouble paying your heating and electricity bill?: No Do you have trouble taking care of your child, family member or friend?: No Do you have trouble with day-to-day activities such as bathing, preparing meals, shopping, managing finances, etc.?: No Are you currently unemployed and looking for a job?: Yes Are you interested in more education?: No Please select the resources that you would like help with: None Currently or been in a relationship where the following occur: No concerns reported THRIVE Score: 0 AUDIT C Alcohol Use Questionnaire (AUDIT-C) 1. How often do you have a drink containing alcohol?: Never 3. How often do you have six or more drinks on one occasion?: Never Total Score: 0 Score Reviewed/Action Taken: Yes LUANA-7 AMB Questionnaire LUANA-7 Date LUANA - 7 assessed: 06/26/25 Feeling nervous, anxious, or on edge: 0 = Not at all Not being able to stop or control worryin = Not at all Worrying too much about different things: 0 = Not at all Trouble relaxin = Not at all Being so restless that it is hard to sit still: 0 = Not at all Becoming easily annoyed or irritable: 0 = Not at all Feeling afraid as if something awful might happen: 0 = Not at all Total LUANA-7 score (0-4 normal; 5-9 mild; 10-14 moderate; 15-21 severe): 0 Source: Developed by Drs. Riley Friedman, Dianne Arango, Gordy Roach and colleagues, with an educational rolando from [employer]. LUANA-7 Assessment Billing LUANA-7 Assessment Tool: LUANA-7 Assessment 79737 ACT Questionnaire In the past 4 weeks, how much of the time did your asthma keep you from getting as much done at work, school or at home?: None of the time During the past 4 weeks, how often have you had shortness of breath?: Not at all During the past 4 weeks, how often did your asthma symptoms wake you up at night or earlier than usual in the morning?: Not at all During the past 4 weeks, how often have you had to use your rescue inhaler or nebulizer medication?: Not at all How would you rate your asthma control during the past 4 weeks?: Completely controlled ACT Interpretation: Negative Score: 25 Physical exam (Primary Care) Tobacco/Smoking Status: Tobacco use Status Tobacco use date assessed 04/16/25 04/16/25 15:08 Patient Tobacco Use Status Never used Tobacco 04/16/25 15:08 e-Cigarette/Vaping Use Never Used 04/16/25 15:08 Depression Screening Interpretation: Negative Thrive Assessment: Date of Thrive Assessment Date Thrive assessed 01/17/25 04/16/25 15:08 Currently or been in a relationship where the following occur: No concerns reported Const Other: General: Well developed, well nourished, in no acute distress. Appears stated age. Head: Normocephalic, atraumatic. Eyes: Pupils are equal, round and reactive to light and accommodation. Conjunctivae are clear. Vision grossly normal. Ears: TM intact and clear bilat Nose: Patent, without discharge. Mouth: There are no ulcers or lesions noted. No inflammation, no post nasal drip, no plaques nor exudates. Neck: Supple, no adenopathy or thyromegaly. Lungs: Clear to auscultation bilaterally. No rales, rhonchi or wheeze noted. Good air flow in all [place]. Heart: Tachycardic, regular rhythm, 2/6 holosystolic murmur Abdomen: Bowel sounds present in all quadrants. I was not able to palpate her abd as she reports she is on her menses Musculoskeletal: Joints are nontender, without swelling, redness, or effusions. Range of motion is observed to be normal. Pulses: Peripheral pulses are equal and palpable bilaterally. Extremities: No clubbing, cyanosis nor edema is noted. Neurologic: Gait and station normal. Cranial Nerves 2-12 intact. Motor strength grossly symmetrical and intact. No sensory loss. Balance normal. Monofilament WNL bilat, Vibratory sensation WNL bilat Skin: facial acne, acne to posterior trunk, No rashes, ulcers, or lesions noted. Turgor is good. Skin color is good. Hair and nails are without abnormalities. 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 Attention deficit hyperactivity disorder (ADHD), combined type F90.2 Attention deficit-hyperactivity disorder type: combined inattentive- hyperactive LUANA (generalized anxiety disorder) F41.1 Type 1 diabetes mellitus with hyperglycemia E10.65 Diabetes mellitus complication status: with hyperglycemia Seasonal allergies J30.2 Asperger's syndrome F84.5 Seizure disorder G40.909 Mild intermittent asthma in adult without complication J45.20 Insomnia due to other mental disorder F51.05; F99 Insomnia type: due to other mental disorder Acne vulgaris L70.0 Acne type: acne vulgaris Papanicolaou smear declined Z53.20 Need for Tdap vaccination Z23 CPT Codes Diabetic Foot Exam - CPT: G9226 - Diabetic Foot Exam ([id number]) Additional Codes LUANA-7 Assessment Billing - LUANA-7 Assessment Tool: LUANA-7 Assessment 29305 ([id number]) PHQ-9 - 74568 - PHQ-9 Billing: Yes ([id number]) Asthma Control Questionnaire - ACT Interpretation: Negative ([id number]) Assessment & Plan Assessment & Plan (1) Encounter for general adult medical examination without abnormal findings: Onset Date: ~06/26/25 Code(s): Z00.00 - Encounter for general adult medical examination without abnormal findings Category: Medical (2) Allergy to influenza vaccine: Code(s): Z88.7 - Allergy status to serum and vaccine Category: Medical (3) Endogenous depression: Comment: On fluoxetine 30 mg daily. Code(s): F33.2 - Major depressive disorder, recurrent severe without psychotic features Category: Medical (4) Attention deficit hyperactivity disorder: Comment: on Adderall XR 25 mg daily and clonidine 0.3 mg daily. Continue Code(s): F90.9 - Attention-deficit hyperactivity disorder, unspecified type Category: Medical Qualifiers: Attention deficit-hyperactivity disorder type: combined inattentive- hyperactive Qualified Code(s): F90.2 - Attention-deficit hyperactivity disorder, combined type (5) LUANA (generalized anxiety disorder): Code(s): F41.1 - Generalized anxiety disorder Category: Medical (6) Type 1 diabetes mellitus: Comment: Managed by endocrinology. On Omnipod insulin pump up-to-date on diabetic eye exam. Code(s): E10.9 - Type 1 diabetes mellitus without complications Category: Medical Qualifiers: Diabetes mellitus complication status: with hyperglycemia Qualified Code(s): E10.65 - Type 1 diabetes mellitus with hyperglycemia (7) Seasonal allergies: Code(s): J30.2 - Other seasonal allergic rhinitis Category: Medical (8) Asperger's syndrome: Code(s): F84.5 - Asperger's syndrome Category: Medical (9) Seizure disorder: Comment: Managed by Neurology. On Keppra. Two seizures in her lifetime. Last seizure January 2022 Code(s): G40.909 - Epilepsy, unspecified, not intractable, without status epilepticus Category: Medical (10) Mild intermittent asthma in adult without complication: Code(s): J45.20 - Mild intermittent asthma, uncomplicated Category: Medical (11) Insomnia: Code(s): G47.00 - Insomnia, unspecified Category: Medical Qualifiers: Insomnia type: due to other mental disorder Qualified Code(s): F51.05 - Insomnia due to other mental disorder; F99 - Mental disorder, not otherwise specified (12) Acne: Comment: uses proactive, happy w effects Code(s): L70.9 - Acne, unspecified Category: Medical Qualifiers: Acne type: acne vulgaris Qualified Code(s): L70.0 - Acne vulgaris (13) Papanicolaou smear declined: Onset Date: ~06/26/25 Code(s): Z53.20 - Procedure and treatment not carried out because of patient's decision for unspecified reasons Category: Medical (14) Need for Tdap vaccination: Code(s): Z23 - Encounter for immunization Category: Medical Plan . Orders: Orders Microalbumin, Random (w Creat) Today E10.65 - Type 1 diabetes mellitus with hyperglycemia TDaP Immunization Today Z23 - Encounter for immunization Medications: New Boostrix Tdap (diphth,pertus(acell),tetanus) 0.5 mL IM ONCE 0.5 mL 0RF NS Z23 - Encounter for immunization Patient Instructions: Health screenings for women You should visit your health care provider from time to time, even if you are healthy. The purpose of these visits is to: Screen for medical issues Assess your risk for future medical problems Encourage a healthy lifestyle Update vaccinations and other preventive care services Help you get to know your provider in case of an illness Information Even if you feel fine, you should still see your provider for regular checkups. These visits can help you avoid problems in the future. For example, the only way to find out if you have high blood pressure is to have it checked regularly. High blood sugar and high cholesterol levels also may not have any symptoms in the early stages. A simple blood test can check for these conditions. There are specific times when you should see your provider or receive specific health screenings. The [place] Preventive Services Task Force publishes a list of r ecommended screenings. Below are screening guidelines for women ages 18 to 39. BLOOD PRESSURE SCREENING Your blood pressure should be checked at least once every 3 to 5 years if: Your blood pressure is in the normal range (top number less than 120 mm Hg and bottom number less than 80 mm Hg) You don't have risk factors for high blood pressure Ask your provider if you need your blood pressure checked more often if: The top number is 120 to 129 mm Hg or the bottom number is 70 to 79 mm Hg You have diabetes, heart disease, kidney problems, are overweight, or have certain other health conditions You have a first-degree relative with high blood pressure You are Black You had high blood pressure during a If the top number is 130 mm Hg or greater or the bottom number is 80 mm Hg or g reater, this is considered stage 1 hypertension. Schedule an appointment with your provider to learn how you can reduce your blood pressure. Watch for blood pressure screenings in your area. Ask your provider if you can stop in to have your blood pressure checked. BREAST CANCER SCREENING Experts do not agree about the benefits of breast self-exams in finding breast cancer or saving lives. Talk to your provider about what is best for you. A screening mammogram is not recommended for most women under age 40. Your provider may discuss and recommend mammograms, MRI scans, or ultrasounds if you have an increased risk for breast cancer, such as: A mother or sister who had breast cancer at a young age (most often starting screening earlier than the age the close relative was diagnosed) You carry a high-risk genetic marker CERVICAL CANCER SCREENING Cervical cancer screening should start at age 21 years unless your provider advises otherwise. After the first test: Women ages 21 through 29 should have a Pap test every 3 years. Exoprts do not agree on whether HPV testing is recommended for this age group. Women ages 30 through 65 should be screened with either a Pap test every 3 years or the HPV test every 5 years or both tests every 5 years (called cotesting ). Women who have been treated for precancer (cervical dysplasia) should continue to have Pap tests for 20 years after treatment or until age 65, whichever is longer. If you have had your uterus and cervix removed (total hysterectomy), and you have not been diagnosed with cervical cancer or precancer (high grade cervical neoplasia), you do not need cervical cancer screening. CHOLESTEROL SCREENING Cholesterol screening should begin at: Age 45 for women with no known risk factors for coronary heart disease Age 20 for women with known risk factors for coronary heart disease Repeat cholesterol screening should take place: Every 5 years for women with normal cholesterol levels More often if changes occur in lifestyle (including weight gain and diet) More often if you have diabetes, heart disease, kidney problems, or certain other conditions DIABETES SCREENING You should be screened for diabetes starting at age 35 and then repeated every 3 years if you have no risk factors for diabetes. Screening may need to start earlier and be repeated more often if you have other risk factors for diabetes, such as: You have a first degree relative with diabetes. You are overweight or have obesity. You have high blood pressure, prediabetes, or a history of heart disease. Screening for diabetes should be done if you are planning to become and you are overweight and have other risk factors such as high blood pressure. DENTAL EXAM Go to the dentist once or twice every year for an exam and cleaning. Your d entist will evaluate if you need more frequent visits. EYE EXAM Have an eye exam every 5 to 10 years before age 40. If you have vision problems, have an eye exam every 2 years or more often if recommended by your provider. You should have an eye exam that includes an examination of your retina (back of your eye) at least every year if you have diabetes. IMMUNIZATIONS Commonly needed vaccines include: Flu shot: get one every year. COVID-19 vaccine: ask your provider what is best for you. Tetanus-diphtheria and acellular pertussis (Tdap) vaccine: have one at or after age 19 as one of your tetanus-diphtheria vaccines if you did not receive it as an adolescent. Tetanus-diphtheria: have a booster (or Tdap) every 10 years. Varicella vaccine: receive 2 doses if you never had chickenpox or the varicella vaccine. Hepatitis B vaccine: receive 2, 3, or 4 doses, depending on your exact circumstances. Measles, mumps, and rubella (MMR) vaccine: receive 1 to 2 doses if you are not already immune to MMR. Your provider can tell you if you are immune. Ask your provider about the human papillomavirus (HPV) vaccine if: You have not received the HPV vaccine in the past You have not completed the full vaccine series (you should catch up on this shot) Ask your provider if you should receive other immunizations if you have certain health problems that increase your risk for some diseases such as pneumonia. INFECTIOUS DISEASE SCREENING Women who are sexually active should be screened for chlamydia and gonorrhea up until age 25. Women 25 years and older should be screened for chlamydia and gonorrhea if at high risk. Screening for hepatitis C: All adults ages 18 to 79 should get a one-time test for hepatitis C. people should be screened at every . Screening for human immunodeficiency virus (HIV): All people ages 15 to 65 should get a one-time test for HIV. Depending on your lifestyle and medical history, you may also need to be screened for infections such as syphilis and HIV, as well as other infections. PHYSICAL EXAM All adults should visit their provider from time to time, even if they are healthy. The purpose of these visits is to: Screen for disease Assess your risk of future medical problems Encourage a healthy lifestyle Update your vaccinations and other preventive care services Maintain a relationship with a provider in case of an illness Your height, weight, and BMI should be checked at every exam. During your exam, your provider may ask you about: Depression and anxiety Diet and exercise Alcohol and tobacco use Safety issues, such as using seat belts, smoke detectors, and intimate partner violence Your medicines and risk for interactions SKIN SELF-EXAM Your provider may check your skin for signs of skin cancer, especially if you're at high risk, such as if you: Have had skin cancer before Have close relatives with skin cancer Have a weakened immune system OTHER SCREENING Talk with your provider about colon cancer screening if you have a strong family history of colon cancer or polyps, or if you have had inflammatory bowel disease or polyps yourself. Routine bone density screening of women under 40 is not recommended.
--- OUTSIDE RECORDS SUMMARY | 2025-06-26 07:58 | XMS_ITS | Encounter Summary ---
Author Organization [facility] Address [address] [place] [address] Phone Care Team Providers Care Diabetic Educator Name Role Phone Peri Ayala MD Primary Care Provider [phone] Encounter Details Date Type Department Care Team (Late st Contact Info) Description 12/04/2014 Documentation [facility] Family Medicine [address] [place], [place] [id number] Family Medicine, Physician [address] [place], [place] [phone] Social History Tobacco Use Types Packs/Day Years [...] on filedocumented in this encounter Care Teams Diabetic Educator Relationship Specialty Start Date End Date Peri Ayala MD [address] [place] [address] PCP - General Pediatrics 04/03/18 10/21/23 documented as of this encounter
--- OUTSIDE RECORDS SUMMARY | 2025-06-26 07:58 | XMS_ITS | Encounter Summary ---
Author Organization [facility] Address [address] [place] [address] Phone Care Team Providers Care Yarn Texturing Machine Operator Name Role Phone Peri Ayala MD Primary Care Provider [phone] Encounter Details Date Type Department Care Team (Late st Contact Info) Description 01/24/[address] [facility] [place] Family Medicine [address] [place] [address] Family Medicine, Physician [address] [place], [place] [phone] Social History Tobacco Use Types Packs/Day Years [...] on filedocumented in this encounter Care Teams Yarn Texturing Machine Operator Relationship Specialty Start Date End Date Peri Ayala MD [address] [place] [address] PCP - General Pediatrics 04/03/18 10/21/23 documented as of this encounter
--- OUTSIDE RECORDS SUMMARY | 2025-06-26 07:58 | XMS_ITS | Encounter Summary ---
Author Organization [facility] Address [address] [place] [address] Phone Care Team Providers Care Spring Tier Name Role Phone Peri Ayala MD Primary Care Provider [phone] Encounter Details Date Type Department Care Team (Late st Contact Info) Description 12/01/2011 Documentation [facility] Family Medicine [address] [place], [place] [phone] Family Medicine, Physician [address] [place], [place] [phone] Social History Tobacco Use Types Packs/Day Years [...] on filedocumented in this encounter Care Teams Spring Tier Relationship Specialty Start Date End Date Peri Ayala MD [address] [place] [address] PCP - General Pediatrics 04/03/18 10/21/23 documented as of this encounter
--- OUTSIDE RECORDS SUMMARY | 2025-06-26 07:58 | XMS_ITS | Encounter Summary ---
Author Organization [facility] Address [address] [place] [address] Phone Care Team Providers Care Safety Inspector Name Role Phone Peri Ayala MD Primary Care Provider Encounter Details Date Type Department Care Team (Late st Contact Info) Description 01/04/[address] [facility] Family Medicine [address] [place], [place] [phone] Family Medicine, Physician [address] [place], [place] [phone] Social History Tobacco Use Types Packs/Day Years [...] on filedocumented in this encounter Care Teams Safety Inspector Relationship Specialty Start Date End Date Peri Ayala MD [address] [place] [address] PCP - General Pediatrics 04/03/18 10/21/23 documented as of this encounter
--- OUTSIDE RECORDS SUMMARY | 2025-06-26 07:58 | XMS_ITS | Encounter Summary ---
Author Organization [facility] Address [address] [place] [address] Phone Care Team Providers Care Fireperson Name Role Phone Peri Ayala MD Primary Care Provider [phone] Encounter Details Date Type Department Care Team (Late st Contact Info) Description 01/14/2015 Documentation [facility] Family Medicine [address] [place], [place] [phone] Family Medicine, Physician [address] [place], [place] [phone] Social History Tobacco Use Types Packs/Day Years [...] on filedocumented in this encounter Care Teams Fireperson Relationship Specialty Start Date End Date Peri Ayala MD [address] [place] [address] PCP - General Pediatrics 04/03/18 10/21/23 documented as of this encounter
--- OUTSIDE RECORDS SUMMARY | 2025-06-26 07:58 | XMS_ITS | Encounter Summary ---
Author Organization [facility] Address [address] [place] [address] Phone Care Team Providers Care Television Receiver Analyzer Name Role Phone Peri Ayala MD Primary Care Provider [phone] Encounter Details Date Type Department Care Team (Late st Contact Info) Description 02/16/2017 Documentation [facility] [place] [address] [place], [place] [phone] Family Medicine, Physician [address] [place], [place] [phone] Social History Tobacco Use Types Packs/Day Years [...] on filedocumented in this encounter Care Teams Television Receiver Analyzer Relationship Specialty Start Date End Date Peri Ayala MD [address] [place] [address] PCP - General Pediatrics 04/03/18 10/21/23 documented as of this encounter
--- OUTSIDE RECORDS SUMMARY | 2025-06-26 07:58 | XMS_ITS | Encounter Summary ---
Author Organization [facility] Address [address] [place] [address] Phone Care Team Providers Care Cow Rider Name Role Phone Peri Ayala MD Primary Care Provider [phone] Encounter Details Date Type Department Care Team (Late st Contact Info) Description 05/20/2017 Conversion Encounter [facility] [address] [place] [address] Social History Tobacco Use Types Packs/Day Years [...] on filedocumented in this encounter Care Teams Cow Rider Relationship Specialty Start Date End Date Peri Ayala MD [address] [place] [address] PCP - General Pediatrics 04/03/18 10/21/23 documented as of this encounter
--- OUTSIDE RECORDS SUMMARY | 2025-06-26 07:58 | XMS_ITS | Encounter Summary ---
Author Organization [facility] Address [address] [place] [address] Phone Care Team Providers Care Travel Occupational Therapist Name Role Phone Peri Ayala MD Primary Care Provider [phone] Encounter Details Date Type Department Care Team (Late st Contact Info) Description 11/14/2015 Documentation [facility] Family Medicine [address] [place] [address] Family Medicine, Physician [address] [place], [place] [phone] Social History Tobacco Use Types Packs/Day Years [...] on filedocumented in this encounter Care Teams Travel Occupational Therapist Relationship Specialty Start Date End Date Peri Ayala MD [address] [place] [address] PCP - General Pediatrics 04/03/18 10/21/23 documented as of this encounter
--- OUTSIDE RECORDS SUMMARY | 2025-06-26 07:58 | XMS_ITS | Clinical Summary ---
Author Organization [facility] Address [address] [place] [address] Phone Care Team Providers Care Presser And Shaper Knitted Goods Name Role Phone Unavailable Primary Care Provider [...] Plan (10/23/2021 5:35 PM EST): Will add [place] Instant Breakfast once per day and mom [...] MRI. 01/22- nl 24hr EEG Followed by [facility] neuro since 08/19/20 (Amber Fitzgerald, [place])- [...] (endo arranges). Annual eye exams, last 04/02/21 ([facility], ), f/u 1 year. Assessment [...] an IEP. 09/18. 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 Will start [place] Instant Breakfast to help minimize further weight [...] Rx today. F/u q2 months with parent [facility] only as patient will be out of high school. Will likely be virtual, so may not be able to do [employer]. Assessment & Plan (03/04/2020 11:27 AM EDT): Doing great, mom and patient very pleased, no current SE (did have issues with sleep, better with clonidine). Will continue Concerta 36mg qAM- does not need new Rx today. F/u q4 months with parent [facility] only as patient will be out of high school. Assessment & Plan (12/08/2019 4:09 PM EST): Doing great, mom and patient very pleased, only SE is sleep, which started well before this med was started. Will continue Concerta 36mg qAM- eRx done today. F/u 4months with parent [facility] only as patient will be out of high school. Assessment & Plan (07/31/2019 4:32 PM EDT): Doing great, mom and patient very pleased. Will continue Concerta 36mg qAM. F/u 4months with parent and teacher [employer] (parent sent through [employer], mom aware to print off teacher ones [...] PDD (pervasive developmental disorder) 0 Overview (03/31/2021): [place] to have Asperger's. Was in counselling and supports in school (IEP and accomodations) and is doing well. 12/17. 12/20/20- [facility] neuropsych eval (Dr. Garrido).- executive control limitation [...] including finding a therapist, an executive function head athletic trainer/strength coach, and get her an updated ASD eval. Mom will contact our [facility], Mirella Shaffer, regarding the latter two, [...] Sister 1 jinny Allergic rhinitis Sister 2 [facility] Asthma Sister 2 [facility] Relation Name Status Comments Father adam Alive Father: Alive a nd well Father's Sister Mother sakina Alive Mother: Alive a nd well Other Family history of ADD/ADHD, Family history of Asthma Sister 1 [place] Alive Sister: Alive a nd well, Alive and well Sister 2 [facility] Alive Sister: Alive a nd [...] 11/09/2003, Additional history exists Influenza Vaccines (#1) 2025 09/03/20 08, 07/14/2006, 07/08/2005, Additional history exists COVID-19 Vaccine (2024- 6 season) 2025 07/09/2022, 11/29/2021, 11/08/2021 Hepatitis B Vaccines Completed [...] Additional history exists Procedures * Due to [place] [employer] law, this organization might not be sharing sensitive test results. Procedure Name Priority Date/Time Associated Diagnosis Comments CHLAMYDIA AND GONORRHEA, AMPLIFIED Routine 07/09/2022 10:26 AM EDT Routine screening for STI (sexually transmitted infection) from Last 3 Months or Most Recently Relevant to Health Maintenance Results * Due to [place] [employer] law, this organization might not be sharing sensitive test results. * Chlamydia and Gonorrhea, Amplified (07/09/2022 10:26 AM EDT) Chlamydia Trachomatis, DNA Probe NEGATIVE (NEG) [facility] Comment: No Chlamydia Trachomatis RNA detected in this patient's sample (REFERENCE RANGE/NORMAL VALUE: NOT DETECTED) Note: This test uses utilization specialist- mediated amplification method to detect rRNA from C. Trachomatis URINE GC AMP PROBE NEGATIVE (NEG) [facility] Comment: No Neisseria Gonorrhoeae RNA detected in this patient's sample (REFERENCE RANGE/NORMAL VALUE: NOT DETECTED) NOTE: This test uses utilization specialist-mediated amplification method to detect rRNA from N.Gonorrhoeae. [...] without risk of sexual abuse. Consult the [facility] if needed. Contact phone number . Therapeutic failure or success cannot be determined with the Aptima Combo2 assay since nucleic acid may persist following appropriate antimicrobial therapy. The Centers for Disease Control and Prevention (CDC) recommends confirmatory retesting using culture or a different nucleic acid amplification test when positive results occur, if indicated. Testing performed or reported by [facility], a Service of [facility], [facility] [place] [address] Juan Shah MD, Conveyor Attendant [facility]# [id number] Urine (Urine) 07/09/2022 10: 26 AM EDT 07/09/2022 10:28 PM EDT us Peri Ayala MD LAB MICROBIOLOGY - GENERAL OR DERABLES Final Result [facility] from Last 3 Months or Most Recently Relevant to Health Maintenance
--- OUTSIDE RECORDS SUMMARY | 2025-06-26 07:58 | XMS_ITS | Encounter Summary ---
Author Organization [facility] Address [address] [place] [address] Phone Care Team Providers Care Tax Services Professional Name Role Phone Peri Ayala MD Primary Care Provider [phone] Encounter Details Date Type Department Care Team (Late st Contact Info) Description 12/09/2009 Documentation [facility] [place] Medicine [address] [place] [address] Family Medicine, Physician [address] [place], [place] [phone] Social History Tobacco Use Types Packs/Day Years [...] on filedocumented in this encounter Care Teams Tax Services Professional Relationship Specialty Start Date End Date Peri Ayala MD [address] [place] [address] PCP - General Pediatrics 04/03/18 10/21/23 documented as of this encounter
--- OUTSIDE RECORDS SUMMARY | 2025-06-26 07:58 | XMS_ITS | Encounter Summary ---
Author Organization [facility] Address [address] [place] [address] Phone Care Team Providers Care Missileman Name Role Phone Peri Ayala MD Primary Care Provider [phone] Encounter Details Date Type Department Care Team (Late st Contact Info) Description 11/23/2014 Documentation [facility] Family Medicine [address] [place], [place] [phone] Family Medicine, Physician [address] [place], [place] [phone] Social History Tobacco Use Types Packs/Day Years [...] on filedocumented in this encounter Care Teams Missileman Relationship Specialty Start Date End Date Peri Ayala MD [address] [place] [address] PCP - General Pediatrics 04/03/18 10/21/23 documented as of this encounter
--- OUTSIDE RECORDS SUMMARY | 2025-06-26 07:58 | XMS_ITS | Encounter Summary ---
Author Organization [facility] Address [address] [place] [address] Phone Care Team Providers Care Thermoscrew Operator Name Role Phone Peri Ayala MD Primary Care Provider [phone] Reason for Visit * Reason Comments Med Refill Encounter Details Date Type Department Care Team (Late st Contact Info) Description 07/16/2019 Refill [facility] [address] [place] [address] Peri Ayala MD [address] [place] [address] Sleep disturbance; Anxiety disorder, unspecified type Social [...] type documented in this encounter Care Teams Thermoscrew Operator Relationship Specialty Start Date End Date Peri Ayala MD [address] [place] [address] PCP - General Pediatrics 04/03/18 10/21/23 documented as of this encounter
--- OUTSIDE RECORDS SUMMARY | 2025-06-26 07:58 | XMS_ITS | Encounter Summary ---
Author Organization [facility] Address [address] [place] [address] Phone Care Team Providers Care Correspondence Clerk Name Role Phone Peri Ayala MD Primary Care Provider [phone] Encounter Details Date Type Department Care Team (Late st Contact Info) Description 05/05/2017 Documentation [facility] Family Medicine [address] [place], [place] [phone] Family Medicine, Physician [address] [place], [place] [phone] Social History Tobacco Use Types Packs/Day Years [...] on filedocumented in this encounter Care Teams Correspondence Clerk Relationship Specialty Start Date End Date Peri Ayala MD [address] [place] [address] PCP - General Pediatrics 04/03/18 10/21/23 documented as of this encounter
--- OUTSIDE RECORDS SUMMARY | 2025-06-26 07:58 | XMS_ITS | Encounter Summary ---
Author Organization [facility] Address [address] [place] [address] Phone Care Team Providers Care Ui Ux Developer Name Role Phone Peri Ayala MD Primary Care Provider [phone] Encounter Details Date Type Department Care Team (Late st Contact Info) Description 11/27/2014 Documentation [facility] Family Medicine [address] [place], [place] [phone] Family Medicine, Physician [address] [place], [place] [phone] Social History Tobacco Use Types Packs/Day Years [...] on filedocumented in this encounter Care Teams Ui Ux Developer Relationship Specialty Start Date End Date Peri Ayala MD [address] [place] [address] PCP - General Pediatrics 04/03/18 10/21/23 documented as of this encounter
--- OUTSIDE RECORDS SUMMARY | 2025-06-26 07:58 | XMS_ITS | Encounter Summary ---
Author Organization [facility] Address [address] [place] [address] Phone Care Team Providers Care Concrete Pointer Name Role Phone Peri Ayala MD Primary Care Provider [phone] Encounter Details Date Type Department Care Team (Late st Contact Info) Description 11/11/2015 Documentation [facility] [place] [address] [place], [place] [id number] Family Medicine, Physician [address] [place], [place] [phone] Social History Tobacco Use Types Packs/Day Years [...] on filedocumented in this encounter Care Teams Concrete Pointer Relationship Specialty Start Date End Date Peri Ayala MD [address] [place] [address] PCP - General Pediatrics 04/03/18 10/21/23 documented as of this encounter
--- OUTSIDE RECORDS SUMMARY | 2025-06-26 07:58 | XMS_ITS | Encounter Summary ---
Author Organization [facility] Address [address] [place] [address] Phone Care Team Providers Care Aluminum Siding Mechanic Name Role Phone Peir Ayala MD Primary Care Provider [phone] Encounter Details Date Type Department Care Team (Late st Contact Info) Description 12/04/2009 Documentation [facility] [place] [address] [place] [address] Family Medicine, Physician [address] [place], [place] [phone] Social History Tobacco Use Types Packs/Day Years [...] on filedocumented in this encounter Care Teams Aluminum Siding Mechanic Relationship Specialty Start Date End Date Peri Ayala MD [address] [place] [address] PCP - General Pediatrics 04/03/18 10/21/23 documented as of this encounter
--- OUTSIDE RECORDS SUMMARY | 2025-06-26 07:58 | XMS_ITS | Encounter Summary ---
Author Organization [facility] Address [address] [place] [address] Phone Care Team Providers Care Cooper Apprentice Name Role Phone Prei Ayala MD Primary Care Provider [phone] Encounter Details Date Type Department Care Team (Late st Contact Info) Description 10/22/2011 Documentation [facility] [place] [address] [place], [place] [phone] Family Medicine, Physician [address] [place], [place] [phone] Social History Tobacco Use Types Packs/Day Years [...] on filedocumented in this encounter Care Teams Cooper Apprentice Relationship Specialty Start Date End Date Peri Ayala MD [address] [place] [address] PCP - General Pediatrics 04/03/18 10/21/23 documented as of this encounter
--- OUTSIDE RECORDS SUMMARY | 2025-06-26 07:58 | XMS_ITS | Encounter Summary ---
Author Organization [facility] Address [address] [place] [address] Phone Care Team Providers Care Import/Export Administrator Name Role Phone Peri Ayala MD Primary Care Provider [phone] Encounter Details Date Type Department Care Team (Late st Contact Info) Description 11/21/2014 Documentation [facility] [place] [address] [place], [place] [phone] Family Medicine, Physician [address] [place], [place] [phone] Social History Tobacco Use Types Packs/Day Years [...] on filedocumented in this encounter Care Teams Import/Export Administrator Relationship Specialty Start Date End Date Peri Ayala MD [address] [place] [address] PCP - General Pediatrics 04/03/18 10/21/23 documented as of this encounter
--- OUTSIDE RECORDS SUMMARY | 2025-06-26 07:58 | XMS_ITS | Encounter Summary ---
Author Organization [facility] Address [address] [place] [address] Phone Care Team Providers Care Layaway Clerk Name Role Phone Peri Ayala MD Primary Care Provider [phone] Encounter Details Date Type Department Care Team (Late st Contact Info) Description 03/24/2010 Documentation [facility] [place] [address] [place] [address] Family Medicine, Physician [address] [place], [place] [phone] Social History Tobacco Use Types Packs/Day Years [...] on filedocumented in this encounter Care Teams Layaway Clerk Relationship Specialty Start Date End Date Peri Ayala MD [address] [place] [address] PCP - General Pediatrics 04/03/18 10/21/23 documented as of this encounter
[2025-06-26 08:08] VITALS: BP 104/66; PULSE 120; RESP 12; TEMP 36.2; O2SAT 97; BMI 18.1
== END 2025-06-26 08:50 | disposition home or self-care (01) ==
LOC: HO.HMCFM 07:55
PROVIDERS: PCP Nurse Practitioner Family; Visit Provider Nurse Practitioner Family
DX: Z00.00 Encounter for general adult medical examination without abnormal findings (principal); Z88.7 Allergy status to serum and vaccine; F33.2 Major depressive disorder, recurrent severe without psychotic features; F90.2 Attention-deficit hyperactivity disorder, combined type; F41.1 Generalized anxiety disorder; E10.65 Type 1 diabetes mellitus with hyperglycemia; J30.2 Other seasonal allergic rhinitis; F84.5 Asperger's syndrome; G40.909 Epilepsy, unspecified, not intractable, without status epilepticus; J45.20 Mild intermittent asthma, uncomplicated; F51.05 Insomnia due to other mental disorder; F99 Mental disorder, not otherwise specified; L70.0 Acne vulgaris; Z53.20 Procedure and treatment not carried out because of patient's decision for unspecified reasons; Z23 Encounter for immunization

== ENCOUNTER 2025-06-26 08:05 | Outpatient (AMB) | payer OTHER, SELFPAY ==
--- NOTE | 2025-06-26 08:46 | A.OFFPC_ITS ---
Vital Signs 06/26/25 08:51 Height 5 ft 3 in Weight 102 lb 6 oz BMI 18.1 BP 104/66 Blood Pressure Location Lt brachial Position Sitting Respiration 12 Pulse 120 H Pulse Source Pulse Oximeter Temp 97.2 F Temp Source Oral Pulse Oximetry (%) 97 Oxygen Delivery Method Room Air Intake Visit Reasons: wc left eye issue Intake Note: Patient had chemical fall around her left eye at work. 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: No Allergies Influenza Virus Vaccines Allergy (Intermediate, Verified 06/26/25 08:53) Chills Tobacco use date assessed: 06/26/25 Dental Screening Dental Screen Date: 06/26/25 Did you have a dental visit in the last 12 months?: Yes Did you have a dental problem in the last 6 months where you did not have access to dental care?: No Was dental information given to patient?: Patient has dentist HPI HPI Comments History of Present Illness Details Here today for workers comp injury, 06/24/25 [employer] Putting oven parts into rinsing bin Drained h20 Got fryer basket Turned on h20, added Chemical - oven pool cleaner, splashed back onto L eye lid Immediately rinsed eye for 10 min @ eye wash station Applying neosporin to eye lid and itchy dry eye drops No visual changes The skin is improving ; having some eye lid crusting Missed work yesterday because of this. Due back on Exam Awake alert NAD PERRLA, EOMI, sclera & conjunctive clear, vision normal. Under eye is healing burn falcon,flat pink. No crusting or redness, No edema. Plan: Emycin oint x 5 days to eye and skin, as she reports crusting of eye lids. RTO as scheduled. Eye protection. Tdap UTD. Form completed and returned to patient at time of visit RTO edu provided. [facility] Medical History Attention deficit hyperactivity disorder Endogenous depression Type 1 diabetes mellitus Seizure disorder Asperger's syndrome Surgical History No pertinent past surgical history Family History Maternal Grandmother Depression Other Mental health disorder Social History Alcohol intake: never Patient Tobacco Use Status: Never used Tobacco e-Cigarette/Vaping Use: Never Used Second Hand Smoke Exposure: No service: No Current occupational status: unemployed and disabled Cognitive needs: No Hearing needs: No Vision needs: Yes (glasses) Questionnaire Thrive Questionnaire Date Thrive assessed: 06/26/25 LUANA-7 AMB Questionnaire LUANA-7 Date LUANA - 7 assessed: 06/26/25 Source: Developed by Drs. Riley Friedman, Dianne Arango, Gordy Roach and colleagues, with an educational rolando from [employer]. Physical exam (Primary Care) Tobacco/Smoking Status: Tobacco use Status Tobacco use date assessed 06/26/25 06/26/25 08:49 Patient Tobacco Use Status Never used Tobacco 06/26/25 08:49 e-Cigarette/Vaping Use Never Used 06/26/25 08:49 Thrive Assessment: Date of Thrive Assessment Date Thrive assessed 06/26/25 06/26/25 08:49 Coding Level of Care Code Est Pt Level 3 (64254) Complex EM visit Add On G2211 Diagnoses Encounter related to worker's compensation claim Z02.6 Chemical burn of left eyelid, initial encounter T26.52XA Encounter type: initial encounter Up to date with tetanus vaccination Z92.29 Assessment & Plan Assessment & Plan (1) Encounter related to worker's compensation claim: Onset Date: ~06/24/25 Code(s): Z02.6 - Encounter for examination for insurance purposes Category: Medical (2) Chemical burn of left eyelid: Code(s): T26.52XA - Corrosion of left eyelid and periocular area, initial encounter Qualifiers: Encounter type: initial encounter Qualified Code(s): T26.52XA - Corrosion of left eyelid and periocular area, initial encounter (3) Up to date with tetanus vaccination: Onset Date: ~06/26/25 Code(s): Z92.29 - Personal history of other drug therapy Category: Medical Plan . Medications: New erythromycin 0.5 inches ophthalmic (eye) BID 3.5 grams 0RF 5 days erythromycin 0.5 inches ophthalmic (eye) BID 5 days 3.5 grams 0RF
[2025-06-26 08:51] VITALS: BP 104/66; PULSE 120; RESP 12; TEMP 36.2; O2SAT 97; BMI 18.1
== END 2025-06-26 08:47 | disposition home or self-care (01) ==
PROVIDERS: PCP Nurse Practitioner Family; Visit Provider Nurse Practitioner Family
DX: T26.52XA Corrosion of left eyelid and periocular area, initial encounter (principal)